=== PATIENT | male | born 1935 | race Caucasian/White ===

== ENCOUNTER 2018-08-05 09:35 | Observation (INO) | payer OTHER ==
[2018-08-05] MEDS ORDERED: ENALAPRILAT 1.25 MG/ML VIAL IV ONE (10:20)
[2018-08-05 10:23] LABS: Absolute Monocytes 0.8 K/uL (0.1-1.3); Basophils % 1.2 % (0-1.3); Eosinophils % 3.5 % (0-4.4); Lymphocytes % 12.7 % (15.3-44.8); MPV 9.1 fL (7.6-11.3); Monocytes % 9.9 % (3.3-12.3); RBC Red Blood Cell Count 4.38 M/uL (4.33-5.43)
[2018-08-05 10:25] LABS: Protime INR 1.08
--- NOTE | 2018-08-05 10:35 | RAD REPORT ---
EXAM DESCRIPTION: CT - Head Brain Wo Cont - 08/05/2018 10:28 am CLINICAL HISTORY: Mental status change;Pain Headache, drowsiness COMPARISON: No comparisons TECHNIQUE: All CT scans are performed using dose optimization technique as appropriate and may inclu de automated exposure control or mA/KV adjustment according to patient size. FINDINGS: No intracranial hemorrhage, hydrocephalus or extra-axial fluid collection.Moderate general ized brain atrophy is present with moderate periventricular and deep white matter chronic microvascul ar ischemic changes.No areas of brain edema or evidence of midline shift. Mild ethmoid air cell opacification. The calvarium is intact. IMPRESSION: No acute intracranial abnormality.
[2018-08-05 10:52] LABS: Albumin 3.9 g/dL (3.4-5.0); Bilirubin Direct 0.3 mg/dL (0-0.2); Bilirubin Total 0.9 mg/dL (0.2-1.0); Potassium 4.6 mmol/L (3.5-5.1); Protein, Total 7.9 g/dL (6.4-8.2); Troponin (Emerg Dept Use Only) 0.02 ng/mL (0.0-0.045)
--- NOTE | 2018-08-05 11:02 | RAD REPORT ---
EXAM DESCRIPTION: RAD - Chest Single View - 08/05/2018 10:52 am CLINICAL HISTORY: CHEST PAIN Chest pain. COMPARISON: CHEST SINGLE VIEW dated 10/23/2008 FINDINGS: Portable technique limits examination quality. The lungs are grossly clear. The heart is normal in size. No displaced fractures.Aortic atheroscleros is. IMPRESSION: No acute intrathoracic process suspected.
[2018-08-05] MEDS ORDERED: LABETALOL 20 MG/4ML SYRINGE IV ONE ×2 (11:07→12:22)
[2018-08-05] MEDS ORDERED: ASPIRIN 325 MG TAB ONE (12:21)
--- NOTE | 2018-08-05 12:35 | ER ---
Nurse's Notes [facility] Name: John Cox Age: 83 yrs Sex: Male : 1935 Arrival Date: 08/05/2018 Time: 09:37 Bed 7 Private MD: Diagnosis: Hypertensive Emergency Presentation: 08/05 09:48 Presenting complaint: Headache and dizziness upon waking today at 0630. Last known hb normal was last night at midnight. VAN NEGATIVE. Transition of care: patient was not received from another setting of care. Onset of symptoms was August 05, 2018. Risk Assessment: Do you want to hurt yourself or someone else? Patient reports no desire to harm self or others. Care prior to arrival: None. 09:48 Acuity: JES 2 hb 09:48 Method Of Arrival: Ambulatory hb 20:03 Initial Sepsis Screen: Does the patient meet any 2 criteria? No. Patient's initial ak1 sepsis screen is negative. Does the patient have a suspected source of infection? No. Patient's initial sepsis screen is negative. Triage Assessment: 20:02 General: Appears in no apparent distress. pt eating dinner. Pain: Pain currently is 0 ak1 out of 10 on a pain scale. 20:03 Pain: Pain began. ak1 22:05 Headache History: Denies prior headaches. General: Behavior is calm, cooperative. Pain: ak1 Denies pain. Also complains of no other associated symptoms. Historical: - Allergies: 09:50 No Known Allergies; hb - PMHx: 09:50 Hypertension; hb - Immunization history:: Adult Immunizations up to date. - Social history:: Smoking status: Patient/guardian denies using tobacco. - Ebola Screening: : No symptoms or risks identified at this time. Screenin:14 Abuse screen: Denies threats or abuse. Denies injuries from another. Nutritional sv screening: No deficits noted. Tuberculosis screening: No symptoms or risk factors identified. Fall Risk None identified. Assessment: 10:20 General: Appears in no apparent distress. well groomed, well developed, well nourished, sg Behavior is calm, cooperative, appropriate for age. Pain: Complains of pain in base of the skull and back of neck Quality of pain is described as aching, sharp. Neuro: Level of Consciousness is awake, alert, obeys commands, Oriented to person, place, time, situation, Director Of Audiology are Speech is normal, Facial symmetry appears normal. Cardiovascular: Capillary refill is brisk in bilateral fingers Patient's skin is warm and dry. Chest pain is denied. Respiratory: Airway is patent Respiratory effort is Respiratory pattern is regular, symmetrical. GI: No signs and/or symptoms were reported involving the gastrointestinal system. : No signs and/or symptoms were reported regarding the genitourinary system. EENT: No signs and/or symptoms were reported regarding the EENT system. Derm: Skin is pink, warm \\T\\ dry. Musculoskeletal: No signs and/or symptoms reported regarding the musculoskeletal system. 17:15 Reassessment: Patient appears in no apparent distress at this time. Patient and/or sg family updated on plan of care and expected duration. Pain level reassessed. Patient is alert, oriented x 3, equal unlabored respirations, skin warm/dry/pink. Diallo BENJAMIN notified of pt VS, order received to adjust the rate of IVPB Cardene infusion, see EMAR. 17:30 Reassessment: Patient appears in no apparent distress at this time. pt speech garbled sg and slurred at this time, reports " my mouth and face feel real numb, and metal taste in my mouth." Javier BENJAMIN notified, IV infusion of Cardene discontinued, VS assessed, orders received for STAT Head CT Brain, pt transported to CT with nurse. 17:45 Reassessment: pt transported back from CT at this time with nurse, Javier notified of sg pt condition, IVPB cardene remains discontinued at this time. 17:50 Reassessment: Patient appears in no apparent distress at this time. Patient and/or sg family updated on plan of care and expected duration. Pain level reassessed. Patient is alert, oriented x 3, equal unlabored respirations, skin warm/dry/pink. pt reports the numbness to the left side of the face is now gone, pt speech is more clear at this time Patient states feeling better. 18:20 Reassessment: Javier BENJAMIN notified of pt VS, orders received for PO medication of sg Hydralazine and Amlodipine, awaiting order to be entered at this time. 20:41 Reassessment: Patient appears in no apparent distress at this time. Patient and/or ak1 family updated on plan of care and expected duration. Pain level reassessed. Patient is alert, oriented x 3, equal unlabored respirations, skin warm/dry/pink. pt A\\T\\OX4 with steady gait. pt and family informed of wait for room assignment. pt BP medications held due to BP 167/80 heart rate 70. Patient states symptoms have improved. 22:12 Reassessment: Patient appears in no apparent distress at this time. No changes from ak1 previously documented assessment. Patient and/or family updated on plan of care and expected duration. Pain level reassessed. Patient is alert, oriented x 3, equal unlabored respirations, skin warm/dry/pink. Patient states feeling better. Patient states symptoms have improved. Vital Signs: 09:50 BP 246 / 124; Pulse 96; Resp 16; Temp 98.1; Pulse Ox 97% on R/A; Pain 7/10; hb 10:10 BP 250 / 115; Pulse 92; Resp 17; Pulse Ox 98% on R/A; sg 10:45 BP 257 / 127; Pulse 71; Resp 16; Pulse Ox 100% ; sv 12:00 BP 227 / 117; Pulse 77 MON; Resp 16; Pulse Ox 99% ; sv 13:00 BP 196 / 121; Pulse 67; Resp 16; Pulse Ox 98% on R/A; dh3 14:00 BP 209 / 105; Pulse 70; Resp 13; Pulse Ox 99% on R/A; dh3 15:15 BP 210 / 127; Pulse 72; Resp 15; Pulse Ox 98% on R/A; dh3 16:15 BP 164 / 94; Pulse 65 MON; Resp 17; Pulse Ox 98% on R/A; sg 17:15 BP 145 / 85; Pulse 59 MON; Resp 18; Pulse Ox 100% on R/A; sg 17:30 BP 116 / 77; Pulse 69 MON; Resp 18; Pulse Ox 98% ; sg 17:45 BP 180 / 77; Pulse 78; Resp 16; Pulse Ox 98% on R/A; sg 18:00 BP 190 / 97; Pulse 77; Resp 17; Pulse Ox 98% on R/A; sg 18:09 BP 184 / 70; Pulse 70; Resp 18; Pulse Ox 98% on R/A; sg 18:31 BP 172 / 104; Pulse 73; Resp 16; Pulse Ox 99% on R/A; sg 20:02 BP 171 / 98; Pulse 67; Resp 16; Temp 98.1; Pulse Ox 99% on R/A; ak1 20:42 BP 167 / 80; Pulse 68; Resp 16; Temp 98.1; Pulse Ox 99% on R/A; Pain 3/10; ak1 22:13 BP 135 / 86; Pulse 60; Resp 16; Temp 98.1; Pulse Ox 99% on R/A; ak1 12:00 A fib sv 17:15 Diallo BENJAMIN notified of pt VS, orders recieved to lower dose of IVPB Cardene to 4 mg/hr, sg see EMAR 18:00 pt transported back from CT sg 18:09 pt reports the numbness and speech are normal at this time, pt agrees sg NIH Stroke Scale Scores: 10:44 NIHSS Score: 0 jr8 ED Course: 09:37 Patient arrived in ED. tw3 09:48 Diallo Amaya PA is PHCP. jr8 09:48 Arthur Norton MD is Attending Physician. jr8 09:50 Triage completed. hb 09:50 Arm band placed on. hb 10:05 Initial lab(s) drawn, by ED staff, sent to lab. Inserted saline lock: 20 gauge in left sv forearm, using aseptic technique. ,using aseptic technique. done by Maykel SNOWDEN Blood collected. 10:14 Patient has correct armband on for positive identification. Bed in low position. Call sv light in reach. Adult w/ patient. Pulse ox on. NIBP on. Door closed. Head of bed elevated. 10:20 Maykel Cuadra, RN is Primary Nurse. sg 10:28 CT completed. Patient tolerated procedure well. Patient moved to CT via stretcher. jg6 Patient moved back from CT. 10:28 CT Head Brain wo Cont In Process Unspecified. EDMS 10:53 XRAY Chest (1 view) In Process Unspecified. EDMS 11:41 EKG done, by testing tech. reviewed by Diallo BENJAMIN. at1 12:34 Rory Bui MD is Referral Physician. jr8 13:02 Claudia Lynch MD is Hospitalizing Provider. jr8 14:54 MRI - Brain Wo Cont In Process Unspecified. EDMS 22:03 No provider procedures requiring assistance completed. Patient admitted, IV remains in ak1 place. Administered Medications: 10:18 Drug: Enalaprilat 1.25 mg Route: IV; Rate: calculated rate; Site: left forearm; sg 20:00 Follow up: IV Status: Completed infusion ak1 11:00 Drug: Labetalol 20 mg Route: IVP; Infused Over: 2 mins; Site: left forearm; sv 20:01 Follow up: Response: No adverse reaction ak1 12:18 Drug: Aspirin 325 mg Route: PO; sv 20:01 Follow up: Response: No adverse reaction ak1 12:18 Drug: Labetalol 20 mg Route: IVP; Infused Over: 2 mins; Site: left forearm; sv 20:01 Follow up: Response: No adverse reaction ak1 15:15 Drug: Cardene 5 mg/hr Route: IV; Rate: calculated rate; Site: left forearm; sg 17:20 Follow up: Rate change 4 mg/hr sg 19:58 Follow up: IV Status: Order to discontinue infusion; Order to discontinue infusion per ak1 Maykel Vazquez RN 20:43 Not Given (held due to vitals): hydrALAZINE 10 mg PO once ak1 20:43 Not Given (held due to vital signs): amLODIPine 10 mg PO once ak1 21:37 CANCELLED (Duplicate Order): amLODIPine 10 mg PO once ak1 21:37 CANCELLED (Duplicate Order): hydrALAZINE 10 mg PO once ak1 Outcome: 12:34 Discharge ordered by MD. gutierrez 13:03 Decision to Hospitalize by Provider. jr8 20:43 Condition: good ak1 20:43 Instructed on the need for admit. 22:24 Admitted to Tele accompanied by tech, family with patient, via wheelchair, room 430, ak1 with chart, Report called to Skye Fonseca 22:41 Patient left the ED. ak1 NIH Stroke Scale - NIH Stroke Score Date: 08/05/2018 Time: 10:44 Total Score = 0 1a. Level of Consciousness (LOC) - 0(Alert) 1b. Level of Consciousness (LOC) (Year \\T\\ Age) - 0(Both) 1c. LOC Commands (Open \\T\\ Closes Eyes/Special Projects Coordinator) - 0(Both) 2. Best Gaze (Lateral Gaze Paresis) - 0(Normal) 3. Visual Field Loss - 0(No visual loss) 4. Facial Palsy - 0(Normal) 5a. Left Arm: Motor (10-second hold) - 0(No drift) 5b. Right Arm: Motor (10-second hold) - 0(No drift) 6a. Left Leg: Motor (5-second hold - always test supine) - 0(No drift) 6b. Right Leg: Motor (5-second hold - always test supine) - 0(No drift) 7. Limb Ataxia (finger/nose \\T\\ heel/blackburn - test with eyes open) - 0(Absent) 8. Sensory Loss (pinprick arms/legs/face) - 0(Normal) 9. Best Language: Aphasia (description/naming/reading) - 0(No aphasia) 10. Dysarthria (speech clarity - read or repeat words) - 0(Normal) 11. Extinction and Inattention (visual/tactile/auditory/spatial/personal) - 0(No abnormality) Initials: matt Signatures: Dispatcher [employer] Dana Segundo RN ISI Cuadra, Maykel, RN Diallo Aldrich PA PA jr8 Deedee Martin, international trade teacher EKG Tat1 Elzbieta Crum RN RN ak1 Domenica Fishman RN RN rita Sparks, Becky tw3 Vargas, Keli dh3 Tisha Milton jg6 Corrections: (The following items were deleted from the chart) 10:28 10:05 Inserted saline lock: 20 gauge in left antecubital area, using aseptic sg technique. ,using aseptic technique. done by Maykel SNOWDEN Blood collected. sv 18:08 17:50 BP 116 / 74; Pulse 62bpm; Resp 16bpm; Pulse Ox 99% RA; sg sg 19:43 18:35 Reassessment: Javier BENJAMIN notified of pt VS, orders received for PO sg medication of Hydralazine and Amlodipine, awaiting order to be entered at this time sg
--- NOTE | 2018-08-05 12:35 | EDPHYS ---
Physician Documentation [facility] Name: John Cox Age: 83 yrs Sex: Male : 1935 Arrival Date: 08/05/2018 Time: 09:37 Bed 7 Private MD: ED Physician Arthur Norton HPI: 08/05 10:35 This 83 yrs old Male presents to ER via Ambulatory with complaints of jr8 Headache. 10:35 The patient complains of pain to the left base of the skull and right base of the jr8 skull. The patient describes the headache as throbbing. Onset: The symptoms/episode began/occurred acutely, today. Associated signs and symptoms: Pertinent positives: speech changes. Severity of symptoms: At its worst the pain was moderate, in the emergency department the pain is unchanged. Headache History: Denies prior headaches. The patient has not experienced similar symptoms in the past. The patient has not recently seen a physician. Family stated that patient went to bed normal. Upon waking at 07:30 had headache and noticed that some of his speech was slurred. BP markedly elevated. Has been trying to self adjust medicine. Use to be on several medicines for BP . Historical: - Allergies: 09:50 No Known Allergies; hb - PMHx: 09:50 Hypertension; hb - Immunization history:: Adult Immunizations up to date. - Social history:: Smoking status: Patient/guardian denies using tobacco. - Ebola Screening: : No symptoms or risks identified at this time. ROS: 10:44 Eyes: Negative for injury, pain, redness, and discharge, ENT: Negative for injury, jr8 pain, and discharge, Neck: Negative for injury, pain, and swelling, Cardiovascular: Negative for chest pain, palpitations, and edema, Respiratory: Negative for shortness of breath, cough, wheezing, and pleuritic chest pain, Abdomen/GI: Negative for abdominal pain, nausea, vomiting, diarrhea, and constipation, Back: Negative for injury and pain, MS/Extremity: Negative for injury and deformity, Skin: Negative for injury, rash, and discoloration. 10:44 Neuro: Positive for headache, speech changes, Negative for altered mental status, dizziness, seizure activity, syncope, visual changes, weakness. Exam: 10:44 Eyes: Pupils equal round and reactive to light, extra-ocular motions intact. Lids and jr8 lashes normal. Conjunctiva and sclera are non-icteric and not injected. Cornea within normal limits. Periorbital areas with no swelling, redness, or edema. ENT: Nares patent. No nasal discharge, no septal abnormalities noted. Tympanic membranes are normal and external auditory canals are clear. Oropharynx with no redness, swelling, or masses, exudates, or evidence of obstruction, uvula midline. Mucous membranes moist. Neck: Trachea midline, no thyromegaly or masses palpated, and no cervical lymphadenopathy. Supple, full range of motion without nuchal rigidity, or vertebral point tenderness. No Meningismus. Cardiovascular: Regular rate and rhythm with a normal S1 and S2. No gallops, murmurs, or rubs. Normal PMI, no JVD. No pulse deficits. Respiratory: Lungs have equal breath sounds bilaterally, clear to auscultation and percussion. No rales, rhonchi or wheezes noted. No increased work of breathing, no retractions or nasal flaring. Abdomen/GI: Soft, non-tender, with normal bowel sounds. No distension or tympany. No guarding or rebound. No evidence of tenderness throughout. Back: No spinal tenderness. No costovertebral tenderness. Full range of motion. Skin: Warm, dry with normal turgor. Normal color with no rashes, no lesions, and no evidence of cellulitis. MS/ Extremity: Pulses equal, no cyanosis. Neurovascular intact. Full, normal range of motion. Neuro: Awake and alert, GCS 15, oriented to person, place, time, and situation. Cranial nerves II-XII grossly intact. Motor strength 5/5 in all extremities. Sensory grossly intact. Cerebellar exam normal. Normal gait. Vital Signs: 09:50 BP 246 / 124; Pulse 96; Resp 16; Temp 98.1; Pulse Ox 97% on R/A; Pain 7/10; hb 10:10 BP 250 / 115; Pulse 92; Resp 17; Pulse Ox 98% on R/A; sg 10:45 BP 257 / 127; Pulse 71; Resp 16; Pulse Ox 100% ; sv 12:00 BP 227 / 117; Pulse 77 MON; Resp 16; Pulse Ox 99% ; sv 13:00 BP 196 / 121; Pulse 67; Resp 16; Pulse Ox 98% on R/A; dh3 14:00 BP 209 / 105; Pulse 70; Resp 13; Pulse Ox 99% on R/A; dh3 15:15 BP 210 / 127; Pulse 72; Resp 15; Pulse Ox 98% on R/A; dh3 16:15 BP 164 / 94; Pulse 65 MON; Resp 17; Pulse Ox 98% on R/A; sg 17:15 BP 145 / 85; Pulse 59 MON; Resp 18; Pulse Ox 100% on R/A; sg 17:30 BP 116 / 77; Pulse 69 MON; Resp 18; Pulse Ox 98% ; sg 17:45 BP 180 / 77; Pulse 78; Resp 16; Pulse Ox 98% on R/A; sg 18:00 BP 190 / 97; Pulse 77; Resp 17; Pulse Ox 98% on R/A; sg 18:09 BP 184 / 70; Pulse 70; Resp 18; Pulse Ox 98% on R/A; sg 18:31 BP 172 / 104; Pulse 73; Resp 16; Pulse Ox 99% on R/A; sg 20:02 BP 171 / 98; Pulse 67; Resp 16; Temp 98.1; Pulse Ox 99% on R/A; ak1 20:42 BP 167 / 80; Pulse 68; Resp 16; Temp 98.1; Pulse Ox 99% on R/A; Pain 3/10; ak1 22:13 BP 135 / 86; Pulse 60; Resp 16; Temp 98.1; Pulse Ox 99% on R/A; ak1 12:00 A fib sv 17:15 Diallo BENJAMIN notified of pt VS, orders recieved to lower dose of IVPB Cardene to 4 mg/hr, sg see EMAR 18:00 pt transported back from CT sg 18:09 pt reports the numbness and speech are normal at this time, pt agrees sg NIH Stroke Scale Scores: 10:44 NIHSS Score: 0 jr8 MDM: 09:48 Patient medically screened. jr8 12:33 Data reviewed: vital signs, nurses notes, lab test result(s), EKG, radiologic studies, jr8 CT scan, and as a result, I will discharge patient. Data interpreted: Pulse oximetry: on room air is 100 %. Interpretation: normal. Counseling: I had a detailed discussion with the patient and/or guardian regarding: the historical points, exam findings, and any diagnostic results supporting the discharge/admit diagnosis, lab results, radiology results, the need for outpatient follow up, a human capital analyst, a family practitioner, to return to the emergency department if symptoms worsen or persist or if there are any questions or concerns that arise at home. Response to treatment: the patient's symptoms have markedly improved after treatment. ED course: Patient was advised that because of his symptoms coupled with his BP, he should be admitted for Hypertensive Emergency. Patient does not want to be admitted. We were able to lower blood pressure to a more reasonable level. Still does not want to stay. Will up his current medication and add another one. Needs close f/u in the next day. To come back if worse . 08/05 10:01 Order name: Basic Metabolic Panel [facility] 08/05 10:01 Order name: CBC with Diff; Complete Time: 10:32 [facility] 08/05 10:01 Order name: LFT's; Complete Time: 10:53 [facility] 08/05 10:01 Order name: Magnesium; Complete Time: 10:53 [facility] 08/05 10:01 Order name: NT PRO-BNP; Complete Time: 10:53 [facility] 08/05 10:01 Order name: PT-INR; Complete Time: 10:45 [facility] 08/05 10:01 Order name: Troponin (emerg Dept Use Only); Complete Time: 10:53 [facility] 08/05 10:01 Order name: XRAY Chest (1 view); Complete Time: 11:13 [facility] 08/05 10:02 Order name: CT Head Brain wo Cont; Complete Time: 10:45 [facility] 08/05 10:02 Order name: Basic Metabolic Panel; Complete Time: 10:53 [facility] 08/05 14:23 Order name: MRI - Brain Wo Cont; Complete Time: 15:56 [facility] 08/05 16:11 Order name: Urine Dipstick--Ancillary (enter results); Complete Time: 16:59 bd 08/05 16:23 Order name: Carotid Artery Bilateral; Complete Time: 17:45 [facility] 08/05 16:23 Order name: Echo with Doppler [facility] 08/05 10:01 Order name: EKG; Complete Time: 10:02 [facility] 08/05 10:01 Order name: Cardiac monitoring; Complete Time: 10:33 [facility] 08/05 10:01 Order name: EKG - Nurse/Tech; Complete Time: 12:12 [facility] 08/05 16:09 Order name: Diet Heart Healthy; Complete Time: 16:09 sv 08/05 16:23 Order name: CONS Physician Consult [facility] 08/05 17:45 Order name: CT Head Brain wo Cont [facility] 08/05 18:04 Order name: CT; Complete Time: 18:29 [facility] 08/05 10:01 Order name: IV Saline Lock; Complete Time: 10:12 8 08/05 10:01 Order name: Labs collected and sent; Complete Time: 10: [facility] 08/05 10:01 Order name: O2 Per Protocol; Complete Time: 10: 8 08/05 10:01 Order name: O2 Sat Monitoring; Complete Time: : [facility] Administered Medications: 10:18 Drug: Enalaprilat 1.25 mg Route: IV; Rate: calculated rate; Site: left forearm; sg 20:00 Follow up: IV Status: Completed infusion ak1 11:00 Drug: Labetalol 20 mg Route: IVP; Infused Over: 2 mins; Site: left forearm; sv 20:01 Follow up: Response: No adverse reaction ak1 12:18 Drug: Aspirin 325 mg Route: PO; sv 20:01 Follow up: Response: No adverse reaction ak1 12:18 Drug: Labetalol 20 mg Route: IVP; Infused Over: 2 mins; Site: left forearm; sv 20:01 Follow up: Response: No adverse reaction ak1 15:15 Drug: Cardene 5 mg/hr Route: IV; Rate: calculated rate; Site: left forearm; sg 17:20 Follow up: Rate change 4 mg/hr sg 19:58 Follow up: IV Status: Order to discontinue infusion; Order to discontinue infusion per ak1 Maykel Vazquez RN 20:43 Not Given (held due to vitals): hydrALAZINE 10 mg PO once ak1 20:43 Not Given (held due to vital signs): amLODIPine 10 mg PO once ak1 21:37 CANCELLED (Duplicate Order): amLODIPine 10 mg PO once ak1 21:37 CANCELLED (Duplicate Order): hydrALAZINE 10 mg PO once ak1 Disposition: 08/06 09:19 Co-signature as Attending Physician, Arthur Norton MD I agree with the assessment and maria del carmen plan of care. Disposition: 08/05/18 13:03 Hospitalization ordered by Lynch, Claudia for Observation. Preliminary diagnosis is Hypertensive Emergency . - Bed requested for Telemetry/MedSurg (Inpatient). - Status is Observation. ak1 - Condition is Stable. - Problem is new. - Symptoms have improved. UTI on Admission? No NIH Stroke Scale - NIH Stroke Score Date: 08/05/2018 Time: 10:44 Total Score = 0 1a. Level of Consciousness (LOC) - 0(Alert) 1b. Level of Consciousness (LOC) (Year \T\ Age) - 0(Both) 1c. LOC Commands (Open \T\ Closes Eyes/Organic Section Technical Lead) - 0(Both) 2. Best Gaze (Lateral Gaze Paresis) - 0(Normal) 3. Visual Field Loss - 0(No visual loss) 4. Facial Palsy - 0(Normal) 5a. Left Arm: Motor (10-second hold) - 0(No drift) 5b. Right Arm: Motor (10-second hold) - 0(No drift) 6a. Left Leg: Motor (5-second hold - always test supine) - 0(No drift) 6b. Right Leg: Motor (5-second hold - always test supine) - 0(No drift) 7. Limb Ataxia (finger/nose \T\ heel/blackburn - test with eyes open) - 0(Absent) 8. Sensory Loss (pinprick arms/legs/face) - 0(Normal) 9. Best Language: Aphasia (description/naming/reading) - 0(No aphasia) 10. Dysarthria (speech clarity - read or repeat words) - 0(Normal) 11. Extinction and Inattention (visual/tactile/auditory/spatial/personal) - 0(No abnormality) Initials: jr8 Signatures: Dispatcher [employer] Dana Segundo RN Stacey Lynn RN Elicia Schaffer RN Maykel Randhawa RN Arthur Rangel MD MD cha Roszak, Josh, PA PA jr8 Elzbieta Crum RN RN ak1 Domenica Fishman RN RN Corrections: (The following items were deleted from the chart) 08/05 13:01 12:34 08/05/2018 12:34 Discharged to Home. Impression: Hypertensive Emergency . jr8 Condition is Stable. Forms are Medication Reconciliation Form, Thank You Letter, Antibiotic Education, Prescription Opioid Use. Follow up: Rory Bui; When: 1 - 2 days; Reason: Recheck today's complaints, Continuance of care, Re-evaluation by your physician. Problem is new. Symptoms have improved. jr8 19:50 13:03 Hospitalization Ordered by Claudia Lynch MD for Observation. Preliminary dw diagnosis is Hypertensive Emergency . Bed requested for Telemetry/MedSurg (observation). Status is Observation. Condition is Stable. Problem is new. Symptoms have improved. UTI on Admission? No. jr8 21:37 21:34 amLODIPine 10 mg PO once ordered. ak1 ak1 21:37 21:34 hydrALAZINE 10 mg PO once ordered. ak1 ak1 21:38 19:50 08/05/2018 13:03 Hospitalization Ordered by Claudia Lynch MD for mw Observation. Preliminary diagnosis is Hypertensive Emergency . Bed requested for [facility] ER HOLD. Status is Observation. Condition is Stable. Problem is new. Symptoms have improved. UTI on Admission? No. dw 22:41 21:38 08/05/2018 13:03 Hospitalization Ordered by Claudia Lynch MD for ak1 Observation. Preliminary diagnosis is Hypertensive Emergency . Bed requested for Telemetry/MedSurg (Inpatient). Status is Observation. Condition is Stable. Problem is new. Symptoms have improved. UTI on Admission? No. mw
[2018-08-05] MEDS ORDERED: NICARDIPINE HCL 25 MG in NA CHLORIDE 0.9% 240 ML IV PRN (14:41)
--- NOTE | 2018-08-05 15:30 | RAD REPORT ---
EXAM DESCRIPTION: MRI - Brain Wo Cont - 08/05/2018 3:05 pm CLINICAL HISTORY: Headache;Aphasia Headache, drowsiness, CVA symptomology COMPARISON: Head Brain Wo Cont dated 08/05/2018 TECHNIQUE: Multi-sequence, multiplanar MR imaging of the brain was performed without contrast. FINDINGS: No intracranial hemorrhage, hydrocephalus or extra-axial fluid collections. Moderate globa l brain atrophy seen. Moderate confluent T2/FLAIR hyperintensity in the periventricular and deep whit e matter is present compatible with chronic microvascular ischemic changes. No edema or shift of midl ine structures. No findings to suspect brain mass. DWI is negative for acute CVA. Midline structures are normally formed. Mild fluid is present in the ethmoid air cells. IMPRESSION: Negative for acute CVA or other acute intracranial abnormality.
[2018-08-05 16:57] LABS: Urine Blood TRACE (NEG); Urine Glucose NEGATIVE (NEG); Urine Protein 3+ (NEG)
--- NOTE | 2018-08-05 17:22 | RAD REPORT ---
EXAM DESCRIPTION: US - CP - 08/05/2018 4:58 pm CLINICAL HISTORY: Aphasia TIA/CVA symptomology COMPARISON: No comparisons TECHNIQUE: Real-time sonographic evaluation of both carotid systems was performed. Doppler interroga tion was performed with waveform tracing bilaterally. FINDINGS: Normal high resistance waveforms are noted in both external carotid arteries. The common c arotid arteries and internal carotid arteries show normal low resistance waveforms. Moderate hard plaque is seen involving the right proximal internal carotid artery. Stenosis is presen t with elevated peak systolic velocity 150 cm/second. Stenosis is estimated at 70% based on NASCET cr iteria. Significant atheromatous and non atheromatous plaquing resulting in stenosis is present invol ving the proximal left internal carotid artery estimated at 80-90% based on NASCET criteria. Antegrade flow seen in both vertebral arteries. IMPRESSION: Significant bilateral atheromatous and non atheromatous plaquing is present in both prox imal internal carotid arteries. The findings result in bilateral carotid stenosis as detailed based on NASCET criteria, more severe o n the left. If clinically indicated, contrast-enhanced MRA of the neck vessels could provide more detailed inform ation.
--- NOTE | 2018-08-05 18:04 | RAD REPORT ---
EXAM DESCRIPTION: CT - Head Brain Wo Cont - 08/05/2018 5:54 pm CLINICAL HISTORY: acute mentals status change with aphasia Drowsiness, headache, CVA COMPARISON: Head Brain Wo Cont dated 08/05/2018 TECHNIQUE: All CT scans are performed using dose optimization technique as appropriate and may inclu de automated exposure control or mA/KV adjustment according to patient size. FINDINGS: No intracranial hemorrhage, hydrocephalus or extra-axial fluid collection.Moderate general ized brain atrophy is present with moderate periventricular and deep white matter chronic microvascul ar ischemic changes.No areas of brain edema or evidence of midline shift. The paranasal sinuses and mastoids are clear. The calvarium is intact. IMPRESSION: No acute intracranial abnormality.
[2018-08-05] MEDS ORDERED: HYDRALAZINE HCL 10 MG TABLET ONE (20:45)
[2018-08-05] MEDS ORDERED: AMLODIPINE 5 MG TAB ONE (20:45)
[2018-08-05] MEDS ORDERED: ONDANSETRON 4 MG/2 ML VIAL IV PRN (22:25)
[2018-08-06] MEDS: METOPROLOL TARTRATE 5 MG/5 ML INJ IV PRN ×2 (00:08→08:25)
[2018-08-06] MEDS: HYDRALAZINE HCL 20 MG/ML VIAL IV PRN ×2 (01:38→05:14)
--- NOTE | 2018-08-06 05:35 | EKG ---
Test Date: 2018-08-05 Test Time: 10:52:05 Dip Dyer: YARIEL MEASUREMENT RESULTS: Intervals: Rate: 89 [place]: QRSD: 134 QT: 406 QTc: 493 [place]: P: WA: QRS: 93 T: 73 INTERPRETIVE STATEMENTS: Atrial fibrillation Right bundle branch block Abnormal ECG Compared to ECG 10/23/2008 06:44:51 Sinus rhythm no longer present Electronically Signed On 08-06-18 05:35:06 CDT by Ted Montoya
[2018-08-06 06:26] LABS: Albumin 3.3 g/dL (3.4-5.0); Phosphorus 3.1 mg/dL (2.5-4.9); Potassium 4.5 mmol/L (3.5-5.1); Protein, Total 6.9 g/dL (6.4-8.2)
[2018-08-06 06:34] LABS: Thyroid Stimulating Hormone 5.09 uIU/mL (0.360-3.740)
[2018-08-06 07:27] LABS: Absolute Lymphocytes (CBC) 0.9 K/uL (0.7-4.9); Absolute Monocytes 0.8 K/uL (0.1-1.3); Absolute Neutrophil 6.4 K/uL (1.8-8.0); Basophils % 0.9 % (0-1.3); Eosinophils % 2.2 % (0-4.4); Hematocrit 39.1 % (39.6-49.0); Lymphocytes % 10.4 % (15.3-44.8); MPV 9.7 fL (7.6-11.3); Monocytes % 9.7 % (3.3-12.3); RBC Red Blood Cell Count 4.17 M/uL (4.33-5.43)
[2018-08-06] MEDS: ENOXAPARIN 40 MG/0.4 ML SQ SCH (08:26)
--- NOTE | 2018-08-06 08:42 | RAD REPORT ---
EXAM DESCRIPTION: - Abdomen Pelvis Scan US - 08/06/2018 8:13 am CLINICAL HISTORY: Hypertension COMPARISON: CT study November 2016 TECHNIQUE: Sonographic evaluation of the kidneys was performed with measurements obtained and gross anatomic assessment performed. Doppler evaluation of the renal arteries, interlobar arteries and aort a performed. Waveforms and velocities were recorded. The renal artery ratios in resistive index beatriz ues were calculated. FINDINGS: Right kidney measures 12.0 x 6.3 x 7.1 cm. Left kidney is atrophic measuring 5.8 x 3.6 x 3 .7 cm. No hydronephrosis or solid mass lesion of either kidney identifiable. There is increased corti christian echogenicity which would support underlying medical renal disease. Overall left renal assessment is limited due to small size and positioning. Aortic resistive index is 0.78. No suspicious waveform pattern. Velocity values are generally dampene d in the left kidney relative to the right, not unexpected given the chronic atrophy. Left renal randall ry resistive index values measure 0.67 proximally and 1.00 in the mid and distal left renal artery. R ight renal artery resistive index values were 0.69-0.70 across the length of the renal artery. Segmen junior resistive index values were 1.00 on the right and 1.00 on the left. Renal artery ratios measured 1.1 on the right and 0.7 on the left, both within normal range. IMPRESSION: No abnormal renal artery ratio of either kidney. No hydronephrosis, mass or suspicious renal parenchymal finding. Underlying medical renal disease is evident.
[2018-08-06] MEDS ORDERED: PNEUMOCOCCAL VACCINE 0.5 ML IMVAC ONE (10:00)
[2018-08-06] MEDS: METOPROLOL TAR 50 MG TAB PO SCH ×2 (10:01→21:12)
[2018-08-06] MEDS: AMLODIPINE 10 MG TAB PO SCH (10:02)
--- NOTE | 2018-08-06 10:02 | P.HP ---
Certification for Inpatient Patient admitted to: Inpatient With expected LOS: >2 Midnights Patient will require the following post-hospital care: None Practitioner: I am a practitioner with admitting privileges, knowledge of patient current condition, hospital course, and medical plan of care. Services: Services provided to patient in accordance with Admission requirements found in Title 42 Section 412.3 of the Code of Federal Regulations Patient History Date of Service: 08/05/18 Reason for admission: Hypertensive emergency History of Present Illness: Patient is an 83-year-old gentleman who came into the hospital with uncontrolled blood pressure. His blood pressure was 200/120s. He was seen in the emergency room and he was started on a nicardipine drip. His blood pressure actually became really low any started having slurred speech. The nicardipine drip was stopped and imaging studies did not reveal an acute stroke. Patient is admitted to the hospital for further evaluation. Will gradually bring his blood pressure down over the next 24-48 hr. Allergies No Known Allergies Allergy (Verified 09/10/16 09:35) - Past Medical/Surgical History Has patient received pneumonia vaccine in the past: No Diabetic: No -: HTN -: cataract surgery - Family History Father Medical History: Hypertension Brother Medical History: Cancer - Social History Smoking Status: Former smoker Alcohol use: Yes CD- Drugs: No Caffeine use: Yes Place of Residence: Home Review of Systems 10-point ROS is otherwise unremarkable Physical Examination - Vital Signs Temperature: 98.3 F Blood Pressure: 213/103 Pulse: 83 Respirations: 16 Pulse Ox (%): 98 - Physical Exam General: Alert, In no apparent distress, Oriented x3 HEENT: Atraumatic, PERRLA, Mucous membr. moist/pink, EOMI, Sclerae nonicteric Neck: Supple, 2+ carotid pulse no bruit, No LAD, Without JVD or thyroid abnormality Respiratory: Clear to auscultation bilaterally, Normal air movement Cardiovascular: Regular rate/rhythm, Normal S1 S2, No murmurs Gastrointestinal: Normal bowel sounds, Soft and benign, Non-distended, No tenderness Musculoskeletal: No clubbing, No swelling, No tenderness Integumentary: No rashes Neurological: Normal gait, Normal speech, Normal strength at 5/5 x4 extr, Normal tone, Sensation intact, Cranial nerves 3-12 intact, Normal affect Lymphatics: No axilla or inguinal lymphadenopathy - Studies Laboratory Data (last 24 hrs) 08/05/18 10:05: PT 12.7 H, INR 1.08 08/05/18 10:05: WBC 8.2, Hgb 14.0, Hct 41.0, Plt Count 219 08/05/18 10:05: Sodium 132 L, Potassium 4.6, BUN 18, Creatinine 1.71 H, Glucose 107 H, Magnesium 2.0, Total Bilirubin 0.9, AST 19, ALT 26, Alkaline Phosphatase 93 Assessment & Plan - Problems (Diagnosis) (1) Hypertensive emergency Current Visit: Yes Status: Acute (2) Generalized weakness Current Visit: Yes Status: Acute (3) Acute kidney injury Current Visit: Yes Status: Acute - Plan Plan: 1. Strict blood pressure control 2. Echocardiogram 3. workup for secondary causes of hypertension 4. Renal arterial Doppler 5. Cardiology and Nephrology consultation 6. Monitor labs and renal function 7. GI and DVT prophylaxis - Advance Directives Does patient have a Living Will: Yes Does patient have a Durable POA for Healthcare: Yes - Code Status/Comfort Care Code Status Assessed: Yes Code Status: Full Code Critical Care: No Time Spent Managing PTS Care (In Minutes): 45
[2018-08-06] MEDS: LOSARTAN POTASSIUM 50 MG TABLET PO SCH (12:46)
--- NOTE | 2018-08-06 14:11 | P.PN ---
Subjective Date of Service: 08/06/18 Chief Complaint: Hypertensive emergency Subjective: No C/O voiced, Tolerating diet, Ambulating, Improving Patient slept well last night. BP had elevated again early this morning. Additional medications were added to his regimen including PRN medicines. Stated that he overall is feeling much better <Buck Amaya - Last Filed: 08/06/18 14:07> Date of Service: 08/06/18 <Josef Kumar - Last Filed: 08/06/18 15:11> Review of Systems General: Unremarkable Eyes: Unremarkable ENT: Unremarkable Respiratory: Unremarkable Cardiovascular: Unremarkable Gastrointestinal: Unremarkable Genitourinary: Unremarkable Musculoskeletal: Unremarkable Integumentary: Unremarkable Neurological: Unremarkable <Buck Amaya - Last Filed: 08/06/18 14:07> Physical Examination - Vital Signs Temperature: 98.4 F Blood Pressure: 172/80 Pulse: 77 Respirations: 16 Pulse Ox (%): 96 - Physical Exam General: Alert, In no apparent distress, Oriented x3, Cooperative HEENT: Normocephalic, PERRLA, Mucous membr. moist/pink Neck: Supple, 2+ carotid pulse no bruit, No Thyromegaly, No LAD Respiratory: Clear to auscultation bilaterally, Normal air movement Cardiovascular: No edema, Normal pulses, Regular rate/rhythm, Normal S1 S2, Abnormal S3, No gallops, No rubs, No murmurs Gastrointestinal: Normal bowel sounds, Soft and benign, Non-distended, No ascites, No tenderness, No masses, No rebound, No guarding Musculoskeletal: No clubbing, No swelling, No contractures, No erythema, No tenderness, No warmth Integumentary: No rashes, No breakdown, No significant lesion, No tenderness/ swelling, No erythema, No warmth, No cyanosis Neurological: Normal gait, Normal speech, Normal strength at 5/5 x4 extr, Normal tone, Sensation intact, Cranial nerves 3-12 intact, Normal reflexes 2+, Normal affect <Buck Amaya - Last Filed: 08/06/18 14:07> Assessment & Plan - Problems (Diagnosis) (1) Acute kidney injury Current Visit: Yes Status: Acute (2) Generalized weakness Current Visit: Yes Status: Acute (3) Hypertensive emergency Current Visit: Yes Status: Acute Discharge Plan: Home Plan to discharge in: 24 Hours Physician Review Additional Text: Detailed discussion with family that we still need cardiology to assess him because of the HTN and carotid stenosis. Renal needs to further assess him as well because of the insufficiency noted on labs. Explained to them that if all is well and BP continues to stabilize. Probably could go home in a day or so. <Buck Amaya - Last Filed: 08/06/18 14:07> Physician Review: Patient Assessed, Agree with Above Assessment and Plan Physician Review Additional Text: Patient seen and evaluate with SOURAV Roberts. BP meds added for better BP control. Patient with significant HTN/Carotid arterial disease. Cardiology consulted to address. Await recommendations. Nephrology also consulted to address CRD. Anticipate DC home once BP better controlled, likely in the next [address] Boswell to take over care tomorrow. Time Spent Managing Pts Care (In Minutes): 55 <Josef Kumar - Last Filed: 08/06/18 15:11>
[2018-08-07] MEDS: HYDRALAZINE HCL 20 MG/ML VIAL IV PRN (04:40)
[2018-08-07] MEDS: METOPROLOL TARTRATE 5 MG/5 ML INJ IV PRN (06:18)
[2018-08-07 06:46] LABS: Absolute Lymphocytes (CBC) 1.1 K/uL (0.7-4.9); Absolute Monocytes 0.9 K/uL (0.1-1.3); Absolute Neutrophil 6.3 K/uL (1.8-8.0); Basophils % 0.8 % (0-1.3); Eosinophils % 2.5 % (0-4.4); Hematocrit 40.4 % (39.6-49.0); Lymphocytes % 12.4 % (15.3-44.8); MPV 9.2 fL (7.6-11.3); Monocytes % 10.8 % (3.3-12.3); RBC Red Blood Cell Count 4.31 M/uL (4.33-5.43)
[2018-08-07 06:52] LABS: Albumin 3.5 g/dL (3.4-5.0); Bilirubin Total 1.1 mg/dL (0.2-1.0); Magnesium 2.1 mg/dL (1.8-2.4); Potassium 4.4 mmol/L (3.5-5.1); Protein, Total 7.5 g/dL (6.4-8.2)
--- NOTE | 2018-08-07 07:45 | CON ---
Date of Consultation: 08/06/2018 Reason For Consultation: Cerebrovascular disease and hypertensive crisis. History Of Present Illness: Mr. Cox is 83 years old. He is a patient of Dr. Montoya, my partner. He came in with hypertensive crisis that is his only significant past medical history. He normally takes Norvasc, aspirin, Lasix, and potassium. He denied any chest pain. No nausea, vomiting, or sylvester phoresis. He denied any PND, orthopnea, or pedal edema. He denied any palpitations or syncope. Past Medical History: As stated above. Allergies: NONE. Review of Systems: Negative. Social History: Negative. Family History: Positive for hypertension. Physical Examination: General: He was in no acute distress. His blood pressure has improved. Vital Signs: Stable. He was afebrile. HEENT: Negative. Neck: Supple without any bruit, lymphadenopathy, JVD, or thyromegaly. Chest: Clear to auscultation and percussion. Cardiac: Revealed a regular rhythm and rate without any murmurs or rubs. He had positive S4 gallops . Abdomen: Benign. Extremities: Revealed no clubbing, cyanosis, or edema. Diagnostic Data: His creatinine was 1.71. BNP was 3656. He had a CT of his head, which was negativ e. A carotid Doppler showed 70% right internal carotid artery stenosis and 90% left internal carotid artery stenosis. Impression And Plan: Hypertension. He is on Norvasc. We certainly have plenty of options including Hyzaar, beta-noé, or even BINTA inhibitors. An echocardiogram is pending. I would probably prefe r beta-blockers addition to him considering his creatinine elevation. We need to see if we can hydra te him and improve his creatinine number. Mr. Cox has not had a cardiac workup for quite sometime s. He has an echocardiogram that is pending. I think once his blood pressure is controlled, we can send him home. He will need an outpatient Lexiscan, and I will set him up for an outpatient carotid angiogram. He does understand the risk and the benefits of the procedure, and he agreed to proceed w ith it. He does not have to stay in the hospital for that. RAINE/SALMA Voice ID: [id number] Report ID: [id number]
[2018-08-07] MEDS: AMLODIPINE 10 MG TAB PO SCH (08:19)
[2018-08-07] MEDS: METOPROLOL TAR 50 MG TAB PO SCH (08:19)
[2018-08-07] MEDS: ENOXAPARIN 40 MG/0.4 ML SQ SCH (08:20)
[2018-08-07] MEDS: LOSARTAN POTASSIUM 50 MG TABLET PO SCH (08:20)
[2018-08-07] MEDS ORDERED: cloNIDine HCl 0.1 MG TAB PO ONE (08:43)
[2018-08-07] MEDS ORDERED: LOSARTAN/HCTZ 50-12.5 PO SCH (09:00)
[2018-08-07] MEDS ORDERED: LOSARTAN POTASSIUM 50 MG TABLET PO SCH (09:00)
--- NOTE | 2018-08-07 16:05 | PN ---
Date of Progress Note: 08/06/2018 Chief Complaint: Chronic kidney disease, acute kidney injury, prerenal azotemia. The patient has no noliguric urine output. The patient was found to have severe hypertension. Renal ultrasound was don e and the patient was found to have atrophic kidney. DICTATION ENDS HERE. SUNSHINE/SALMA Voice ID: [id number] Report ID: [id number]
--- NOTE | 2018-08-07 16:18 | PN ---
Date of Progress Note: 08/07/2018 Chief Complaint: Acute on chronic kidney injury, nonoliguric, associated with cardiorenal syndrome, malignant hypertension, renal hypoperfusion. Renal function has declined somewhat over last 24 hours , BUN is 26, creatinine 1.82. The patient denies previous history of chronic kidney disease, althoug h renal ultrasound revealed solitary kidney, one kidney is atrophic and the other kidney disease is h ypertrophic. Hyponatremia, hypo-osmolar. Sodium level has declined over the last 48 hours. The patient has lab w ork done today and showed sodium 130, potassium 4.4, chloride 100, CO2 22, BUN 26, creatinine 1.86, p hosphorus level 3.0. The patient has some congestive heart failure with diastolic dysfunction. Workup is initiated to [facility] cardiac echo. BNP was 3656 on admission. The patient underwent neurology workup on admission bec ause of slurred speech and severe hypertension. Blood pressure is gradually improving. The patient completed nicardipine drip. Review of Systems: Denies nausea, vomiting. Denies chest pain, diaphoresis. Physical Examination: Eyes: Anicteric sclerae. EOMI. Ears, Nose, Mouth, and Throat: Oral mucosa moist. No pallor. Neck: Supple. No JVD. No bruits. Lungs: Clear to auscultation bilaterally. Heart: S1, S2. Abdomen: Soft, benign. Extremities: Slight edema. Imaging Data: Carotid Doppler showed 70% right internal carotid artery stenosis, 90% of left interna l carotid artery stenosis. Impression And Plan: 1.The patient has malignant hypertension. The patient will start medication for blood pressure cont rol. Angiotensin receptor noé will be started. The patient cannot take HCTZ due to hyponatremia . 2.Acute on chronic kidney injury with prerenal azotemia and renal hypoperfusion. Monitor renal func tion. Check renal artery Doppler to rule out renal artery stenosis. 3.Proteinuria. Workup is initiated for proteinuria. The patient will follow up outpatient to rule out monoclonal gammopathy of unknown significance. EB/MODL Voice ID: [id number] Report ID: [id number]
--- NOTE | 2018-08-07 16:18 | CON ---
Date of Consultation: 08/06/2018 Chief Complaint: Abnormal kidney function test, severe hypertension, hypertensive heart and kidney. History Of Present Illness: The patient came to the hospital because of uncontrolled hypertension. Blood pressure was 200/120. The patient was started on nicardipine drip in the hospital. The blood pressure was severely elevated. The patient has some slurred speech, and had workup done w hich did not show acute CVA. Blood pressure was gradually controlled with nicardipine drip and a nep hrology consultation is requested for renal insufficiency. The patient does not have a history of ki dney stones, hematuria, or cancer. The patient is on multiple blood pressure medications. Previousl y, the patient was seen by [facility]. The patient presented with hypertensive crisis and was foun d to have elevated BUN and creatinine. Electrolytes remained within normal ranges. The patient is u ndergoing workup for malignant hypertension. The patient, at this point, denies chest pain, nausea, vomiting, PND, orthopnea. Past Medical History: Hypertension, hypertensive heart and kidney disease, history of atrophic one k idney. Denies history of kidney stones. The patient has history of hyperlipidemia. Denies COPD and diabetes. Has history of cataract surgery. Family History: Hypertension. Brother had cancer. Social History: Former smoker. Denies illicit drugs. Objective: Vital Signs: Blood pressure 200/103, temperature 98.3, respirations 16, SpO2 98%. Eyes: Anicteric sclerae. EOMI. Ears, Nose, Mouth and Throat: Oral mucosa moist. No pallor. NECK: Supple. No JVD. No bruits. LUNGS: Few crackles at bases. HEART: S1, S2. ABDOMEN: Soft. Benign. EXTREMITIES: Edema present in both legs. Laboratory Data: INR is 1.08. PT is 12.7. WBC is 8.2. Impression And Plan: 1.Severe hypertension hypertensive crisis. Plan is to order a renal artery Doppler to rule out jose l artery stenosis. 2.Hyponatremia hypoosmolar. The patient will have workup to rule out hypothyroid. Avoid HCTZ. 3.Hypertension. The patient will continue current medication. Plan is to add angiotensin receptor noé. 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 There is element of prerenal azotemia, acute kidney injury. Avoid nonsteroidal anti-inflammatory me dication. 5.Proteinuria. Plan is to rule out monoclonal gammopathy of unknown significance. 6.Plan is to check urinalysis to rule out nephritis and other vasculitis if needed. 7.Hypertensive heart and kidney disease. Workup is pending from [facility] to assess ejection fra ction. SUNSHINE/SALMA Voice ID: [id number] Report ID: [id number]
--- NOTE | 2018-08-07 17:36 | DS ---
Code status: Full Date of Discharge: 08/07/2018 Consultants: 1. Dr. Bui with Cardiology. 2. Dr. Camilo with Nephrology. Admitting Diagnoses: 1. Hypertensive emergency. 2. Generalized weakness. 3. Acute kidney injury. Discharge Diagnoses: 1. Hypertensive emergency, improved. 2. Acute kidney injury, creatinine improved. 3. Generalized weakness. 4. Hyponatremia. 5. Carotid artery stenosis, added on statin. 6. Solitary kidney. Hospital Course: The patient is an 83-year-old male with past medical history of hypertension, who comes in due to hypertensive emergency with a blood pressure of 200/120s. The patient had been started on nicardipine drip in the ER. Blood pressure became very low. The patient started having slurred speech. Nicardipine drip was stopped. Workup was done to rule out acute stroke , which was negative. The patient was then referred for admission for uncontrolled blood pressure. Carotid artery ultrasound showed significant carotid artery stenosis. The patient will need a carotid artery angiogram. However, due to his solitary kidney and kidney dysfunction, the patient will be need delayed angiogram done as an outpatient by Dr. Bui. The patient was seen by [facility], Dr. Bui for his uncontrolled blood pressure. Medications were adjusted. The patient will also need a Lexiscan as an outpatient. Abdominal artery ultrasound to rule out renal stenosis was done, which was negative. The patient was also seen by Dr. Camilo with Nephrology. The patient otherwise did well. There is no further intervention from Nephrology or Cardiology. The patient was then cleared for discharge. He will need further workup for his proteinuria and to rule out other issues such as nephritis or vasculitis. The patient did well with the medications. Continue medications orally. He did require some clonidine p.r.n. and hydralazine IV to control his blood pressure. Overall patient did well, did have any further episodes of confusion or slurred speech. His blood pressure improved to the 160s. He understands that his blood pressures have been in the high 200/180s for a long period of time and he will need slow titration of his blood pressure. We would not recommend immediately decreasing his blood pressures in the 120s or 130s due to his kidney dysfunction. For now, goal was set at 150s to 170s to slowly titrate to 130s to 150s. The patient will need close followup with his PCP, Pathology, and Cardiology to titrate his blood pressure medications and coordinate his care. The patient was then discharged home in a stable condition. Activity: As tolerated. Medications: As per medication reconciliation list. Followup: Follow up with primary care physician in 2-3 weeks days. Follow up with [facility], Dr. Montoya, in 2 weeks. Return to ER for worsening condition. Diet: Heart healthy, renal diet. Physical Examination: General: Awake, alert, oriented x3. No acute distress, elderly male. CV: S1 and S2. No murmurs. Respiratory: Moving air well bilaterally. Abdomen: Soft, nontender, nondistended. Positive bowel sounds. Extremities: No clubbing, cyanosis, or edema. Neurologic: Nonfocal. Repeat BMP in 1 week. /SALMA Voice ID: [id number] Report ID: [id number] [id number]
--- NOTE | 2018-08-07 20:12 | PN ---
Subjective: Mr. Cox was seen yesterday by me because of carotid stenosis, renal insufficiency, hy pertensive crisis. He remained hypertensive today. He is now on metoprolol, Norvasc, losartan. Blo od pressure is still 170/110. Creatinine is 1.8. Mr. Cox recently had a renal Doppler in the off ice showing 1 kidney on the left. No renal artery stenosis in my office. Has not had a stress test for about 3 years. I think we need to change his losartan to Hyzaar. I need to give him clonidine a s needed. He can go home if his blood pressure is well controlled. I will make arrangements for an outpatient Lexiscan and decide a carotid angiogram soon as he has severe carotid stenosis greater on the left than the right. RAINE/SALMA Voice ID: [id number] Report ID: [id number]
[2018-08-07] MEDS ORDERED: DOXAZOSIN 2 MG TAB PO SCH (21:00)
[2018-08-07] MEDS ORDERED: ATORVASTATIN 80 MG TAB PO SCH (21:00)
--- NOTE | 2018-08-09 08:03 | ECHO ---
HEIGHT: 5 ft 7 in WEIGHT: 162 lb 6.4 oz DATE OF STUDY: 08/06/[address]: Claudia Lynch MD 2-DIMENSIONAL: YES M.MODE: YES DOPPLER: YES COLOR FLOW: YES TDS: NO PORTABLE: NO DEFINITY: NO BUBBLE STUDY: NO DIAGNOSIS: HYPERTENSION URGENCY CARDIAC HISTORY: CATHERIZATION: NO SURGERY: NO PROSTHETIC VALVE: NO PACEMAKER: NO MEASUREMENTS (cm) DIASTOLIC (NORMALS) SYSTOLIC (NORMALS) IVSd 1.0 (0.6-1.2) LA Diam 4.3 (1.9-4.0) LVEF 51% LVIDd 4.2 (3.5-5.7) LVIDs 3.1 (2.0-3.5) %FS 26% LVPWd 1.2 (0.6-1.2) Ao Diam 2.9 (2.0-3.7) 2 DIMENSIONAL ASSESSMENT: RIGHT ATRIUM: NORMAL LEFT ATRIUM: DILATED RIGHT VENTRICLE: NORMAL LEFT VENTRICLE: NORMAL TRICUSPID VALVE: NORMAL MITRAL VALVE: NORMAL PULMONIC VALVE: NORMAL AORTIC VALVE: SCLEROSIS PERICARDIAL EFFUSION: NONE AORTIC ROOT: NORMAL LEFT VENTRICULAR WALL MOTION: NORMAL DOPPLER/COLOR FLOW: MILD TRICUSPID REGURGITATION. COMMENTS: MILD TRICUSPID REGURGITATION. AORITC SCLEROSIS. LEFT ATRIAL ENLARGEMENT. NORMAL LEFT VENTRICULAR SIZE AND FUNCTION. TECHNOLOGIST: Austen BURGESS
== END 2018-08-07 14:54 | disposition home or self-care (01) ==
LOC: ER 09:35 → INTOOBSV 16:20 → ERHOLD 16:20 → 4TH 22:25
PROVIDERS: ADMIT Family Medicine; ATTEND Hospitalist
DX: I16.1 Hypertensive emergency (principal); N17.9 Acute kidney failure, unspecified; R53.1 Weakness; E87.1 Hypo-osmolality and hyponatremia; I65.29 Occlusion and stenosis of unspecified carotid artery; Q60.0 Renal agenesis, unilateral
CPT/HCPCS: 96365; 93005; 93306; 85025 ×3; 80048; 36415 ×2; 83735 ×3; 84100 ×2; 85610; 80061; 80076; 84443; 81003; 84484; 84439; 80053 ×2; 82533; 82088; 83880; 84402; 83835; 84244; 70450 ×2; 71045; 93880; 93975; 70551; 94760 ×3; 96375; 99285; 96366; J0360 ×3; J1650 ×2; G0378 ×2

== ENCOUNTER 2018-08-12 23:55 | Emergency (ER) | payer OTHER ==
--- NOTE | 2018-08-13 01:17 | ER ---
Nurse's Notes [facility] Name: John Cox Age: 83 yrs Sex: Male : 1935 Arrival Date: 08/12/2018 Time: 23:56 Bed 19 Private MD: Ankita Corbett H Diagnosis: Essential (primary) hypertension Presentation: 08/12 23:59 Presenting complaint: Patient states: "My blood pressure is running high. I was jd3 discharged last week with high blood pressure from hospital.". Transition of care: patient was not received from another setting of care. Onset of symptoms was August 13, 2018. Risk Assessment: Do you want to hurt yourself or someone else? Patient reports no desire to harm self or others. Initial Sepsis Screen: Does the patient meet any 2 criteria? No. Patient's initial sepsis screen is negative. Does the patient have a suspected source of infection? No. Patient's initial sepsis screen is negative. Care prior to arrival: Medication(s) given: Clonidine at 2250 and Valsartan 2130. 23:59 Method Of Arrival: Ambulatory jd3 23:59 Acuity: JES 3 jd3 Historical: - Allergies: 08/13 00:03 No Known Allergies; jd3 - Home Meds: 00:03 Clonidine Oral [Active]; valsartan oral oral [Active]; jd3 - PMHx: 00:03 Hypertension; jd3 - PSHx: 00:03 cateract; jd3 - Immunization history:: Adult Immunizations up to date. - Social history:: Smoking status: Patient/guardian denies using tobacco, but has a distant history of tobacco abuse. - Ebola Screening: : Patient negative for fever greater than or equal to 101.5 degrees Fahrenheit, and additional compatible Ebola Virus Disease symptoms. Screenin:18 Abuse screen: Denies threats or abuse. Nutritional screening: No deficits noted. tl2 Tuberculosis screening: No symptoms or risk factors identified. Fall Risk Gait- Weak (10 pts.). Assessment: 00:18 General: Appears in no apparent distress. comfortable, Behavior is calm, cooperative, tl2 appropriate for age. General: pt reports taking BP at home, read 217 systolic and took night time BP meds. BP is starting to trend down. Pain: Denies pain. Neuro: Level of Consciousness is awake, alert, obeys commands, Oriented to person, place, time, situation. Neuro: Denies weakness blurred vision dizziness, headache. Cardiovascular: Denies chest pain. Respiratory: Airway is patent Respiratory effort is even, unlabored, Respiratory pattern is regular, symmetrical. GI: No signs and/or symptoms were reported involving the gastrointestinal system. : No signs and/or symptoms were reported regarding the genitourinary system. Derm: Skin is pink, warm \\T\\ dry. 01:31 Reassessment: Patient appears in no apparent distress at this time. Patient and/or tl2 family updated on plan of care and expected duration. Pain level reassessed. Patient is alert, oriented x 3, equal unlabored respirations, skin warm/dry/pink. pt verbalized understanding of discharge instructions, need for follow up. Vital Signs: 00:03 BP 176 / 87; Pulse 101; Resp 19 S; Temp 97.6(O); Pulse Ox 98% on R/A; Weight 77.11 kg jd3 (R); Height 5 ft. 7 in. (170.18 cm) (R); Pain 0/10; 00:39 BP 177 / 81; Pulse 56; Resp 18; Pulse Ox 99% on R/A; tl2 01:07 BP 164 / 84; Pulse 53; Resp 18; Pulse Ox 98% on R/A; tl2 01:31 BP 155 / 84; Pulse 55; Resp 18; Pulse Ox 96% on R/A; tl2 00:03 Body Mass Index 26.63 (77.11 kg, 170.18 cm) jd3 ED Course: 08/12 23:56 Patient arrived in ED. am2 23:56 Ankita Corbett DO is Private Physician. am2 03 00:01 Triage completed. jd3 00:05 Arm band placed on. jd3 00:13 Diallo Amaya PA is PHCP. jr8 00:13 Ezequiel Speras MD is Attending Physician. jr8 00:18 Tatum Tariq, ISI is Primary Nurse. tl2 00:18 Patient has correct armband on for positive identification. Bed in low position. Call tl2 light in reach. Side rails up X 1. Adult w/ patient. 01:16 Rory Bui MD is Referral Physician. jr8 01:34 No provider procedures requiring assistance completed. Patient did not have IV access tl2 during this emergency room visit. Administered Medications: No medications were administered Outcome: 01:16 Discharge ordered by . 8 01:34 Discharged to home ambulatory, with family. tl2 01:34 Condition: stable 01:34 Discharge instructions given to patient, family, Instructed on discharge instructions, follow up and referral plans. Demonstrated understanding of instructions, follow-up care. 01:34 Patient left the ED. tl2 Signatures: Diallo Amaya PA PA jr8 Tatum Tariq, RN RN tl2 Deedee Heaton Jonathon RN RN jd3 Corrections: (The following items were deleted from the chart) 00:03 03 23:59 Care prior to arrival: None. [email or web address]
--- NOTE | 2018-08-13 01:17 | EDPHYS ---
Physician Documentation [facility] Name: John Cox Age: 83 yrs Sex: Male : 1935 Arrival Date: 08/12/2018 Time: 23:56 Bed 19 Private MD: Ankita Corbett H ED Physician Ezequiel Spears HPI: 08/13 00:24 This 83 yrs old Male presents to ER via Ambulatory with complaints of High jr8 Blood Pressure. 00:24 The patient has elevated blood pressure and discovered this at home, with a home jr8 device. Onset: The symptoms/episode began/occurred acutely, today. Modifying factors: The symptoms are aggravated by activity, The symptoms are alleviated by prescription meds, clonidine. Associated signs and symptoms: The patient has no apparent associated signs or symptoms. Severity of symptoms: At its worst the blood pressure was moderate, in the emergency department the blood pressure is improved, mildly. The patient has experienced similar episodes in the past, several times. The patient has been recently seen by a physician:. Patient recently admitted for HTN Emergency and was started on new BP medications. Noted tonight that his BP was in the 200s systolic. Took his clonidine before coming but was suppose to take it earlier. BP now in the 170s. Denies any s/s. . Historical: - Allergies: 00:03 No Known Allergies; jd3 - Home Meds: 00:03 Clonidine Oral [Active]; valsartan oral oral [Active]; jd3 - PMHx: 00:03 Hypertension; jd3 - PSHx: 00:03 cateract; jd3 - Immunization history:: Adult Immunizations up to date. - Social history:: Smoking status: Patient/guardian denies using tobacco, but has a distant history of tobacco abuse. - Ebola Screening: : Patient negative for fever greater than or equal to 101.5 degrees Fahrenheit, and additional compatible Ebola Virus Disease symptoms. ROS: 00:24 Eyes: Negative for injury, pain, redness, and discharge, ENT: Negative for injury, jr8 pain, and discharge, Neck: Negative for injury, pain, and swelling, Cardiovascular: Negative for chest pain, palpitations, and edema, Respiratory: Negative for shortness of breath, cough, wheezing, and pleuritic chest pain, Abdomen/GI: Negative for abdominal pain, nausea, vomiting, diarrhea, and constipation, Back: Negative for injury and pain, MS/Extremity: Negative for injury and deformity, Skin: Negative for injury, rash, and discoloration, Neuro: Negative for headache, weakness, numbness, tingling, and seizure. Exam: 00:24 Eyes: Pupils equal round and reactive to light, extra-ocular motions intact. Lids and jr8 lashes normal. Conjunctiva and sclera are non-icteric and not injected. Cornea within normal limits. Periorbital areas with no swelling, redness, or edema. ENT: Nares patent. No nasal discharge, no septal abnormalities noted. Tympanic membranes are normal and external auditory canals are clear. Oropharynx with no redness, swelling, or masses, exudates, or evidence of obstruction, uvula midline. Mucous membranes moist. Neck: Trachea midline, no thyromegaly or masses palpated, and no cervical lymphadenopathy. Supple, full range of motion without nuchal rigidity, or vertebral point tenderness. No Meningismus. Cardiovascular: Regular rate and rhythm with a normal S1 and S2. No gallops, murmurs, or rubs. Normal PMI, no JVD. No pulse deficits. Respiratory: Lungs have equal breath sounds bilaterally, clear to auscultation and percussion. No rales, rhonchi or wheezes noted. No increased work of breathing, no retractions or nasal flaring. Abdomen/GI: Soft, non-tender, with normal bowel sounds. No distension or tympany. No guarding or rebound. No evidence of tenderness throughout. Back: No spinal tenderness. No costovertebral tenderness. Full range of motion. Skin: Warm, dry with normal turgor. Normal color with no rashes, no lesions, and no evidence of cellulitis. MS/ Extremity: Pulses equal, no cyanosis. Neurovascular intact. Full, normal range of motion. Neuro: Awake and alert, GCS 15, oriented to person, place, time, and situation. Cranial nerves II-XII grossly intact. Motor strength 5/5 in all extremities. Sensory grossly intact. Cerebellar exam normal. Normal gait. Vital Signs: 00:03 BP 176 / 87; Pulse 101; Resp 19 S; Temp 97.6(O); Pulse Ox 98% on R/A; Weight 77.11 kg jd3 (R); Height 5 ft. 7 in. (170.18 cm) (R); Pain 0/10; 00:39 BP 177 / 81; Pulse 56; Resp 18; Pulse Ox 99% on R/A; tl2 01:07 BP 164 / 84; Pulse 53; Resp 18; Pulse Ox 98% on R/A; tl2 01:31 BP 155 / 84; Pulse 55; Resp 18; Pulse Ox 96% on R/A; tl2 00:03 Body Mass Index 26.63 (77.11 kg, 170.18 cm) jd3 MDM: 00:13 Patient medically screened. jr8 01:15 Data reviewed: vital signs, nurses notes, and as a result, I will discharge patient. jr8 Data interpreted: Pulse oximetry: on room air is 98 %. Interpretation: normal. Counseling: I had a detailed discussion with the patient and/or guardian regarding: the historical points, exam findings, and any diagnostic results supporting the discharge/admit diagnosis, the need for outpatient follow up, a apartment leasing consultant, to return to the emergency department if symptoms worsen or persist or if there are any questions or concerns that arise at home. ED course: Patients BP continues to normalize. Still without symptoms. Will send home to f/u with cardiology . Administered Medications: No medications were administered Disposition: 03:17 Co-signature as Attending Physician, Ezequiel Spears MD. rn Disposition: 08/13/18 01:16 Discharged to Home. Impression: Essential (primary) hypertension. - Condition is Stable. - Discharge Instructions: Hypertension. - Medication Reconciliation Form, Thank You Letter, Antibiotic Education, Prescription Opioid Use form. - Follow up: Rory Bui MD; When: 1 - 2 days; Reason: Recheck today's complaints, Continuance of care, Re-evaluation by your physician. - Problem is new. - Symptoms have improved. Signatures: Ezequiel Spears MD MD rn Roszak, Josh, PA PA jr8 Tatum Tariq RN RN tl2 Alhaji Ramos RN RN jd3 Corrections: (The following items were deleted from the chart) 01:34 01:16 08/13/2018 01:16 Discharged to Home. Impression: Essential (primary) tl2 hypertension. Condition is Stable. Forms are Medication Reconciliation Form, Thank You Letter, Antibiotic Education, Prescription Opioid Use. Follow up: Rory Bui; When: 1 - 2 days; Reason: Recheck today's complaints, Continuance of care, Re-evaluation by your physician. Problem is new. Symptoms have improved. jr8
== END 2018-08-13 01:34 | disposition home or self-care (01) ==
LOC: ER 23:55
DX: I10 Essential (primary) hypertension (principal)
CPT/HCPCS: 99281

== ENCOUNTER 2018-08-25 06:51 | Day surgery (SDC) | payer OTHER ==
[2018-08-23 11:48] LABS: Protime INR 1.11
[2018-08-23 11:56] LABS: Absolute Monocytes 0.8 K/uL (0.1-1.3); Absolute Neutrophil 5.9 K/uL (1.8-8.0); Basophils % 0.9 % (0-1.3); Eosinophils % 4.2 % (0-4.4); Hematocrit 40.2 % (39.6-49.0); MPV 9.8 fL (7.6-11.3); Monocytes % 9.6 % (3.3-12.3)
[2018-08-25] MEDS ORDERED: LIDOCAINE 1% MPF 30 ML VIAL ONE (07:17)
[2018-08-25] MEDS ORDERED: HEPA 1000U/500MLS 2,000 UNIT/1,000 ML BAG IV ONE (07:17)
[2018-08-25] MEDS ORDERED: NA CHLORIDE 0.9% 500 ML ONE (07:38)
[2018-08-25] MEDS ORDERED: HYDRALAZINE HCL 20 MG/ML VIAL ONE ×2 (08:04→09:56)
[2018-08-25] MEDS ORDERED: ATROPINE SULF 1 MG/10 ML SYR IV ONE (08:04)
[2018-08-25] MEDS ORDERED: MIDAZOLAM HCL 2 MG/2 ML INJ ONE (08:04)
[2018-08-25] MEDS ORDERED: HEPARIN 5000 UNIT/ML 1 ML VIAL ONE (08:04)
[2018-08-25] MEDS ORDERED: FENTANYL CITR 100 MCG/2 ML ONE (08:05)
--- NOTE | 2018-08-25 19:48 | OP ---
Surgeon: Ted Montoya MD Procedure: The patient had bilateral selective carotid angiograms. 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 On the right, it was about 20% stenotic. On the l eft, about 60% stenotic, but with several ulcerated areas very capable of causing TIAs, and the recom mendation will be for a left carotid endarterectomy. Procedure In Detail: The patient gave informed consent, was brought to the cardiac collaborative physician in a fas ting state, sedated with Versed, fentanyl, prepared and draped. Right femoral artery identified thro ugh palpation. Tissues around the artery anesthetized. The artery entered with an 18-gauge needle, cannulated with a short J-wire. 4-Tanzanian sheath was placed, and we did all of the angiograms through a coronary JR4 4-T[place] catheter. We angiogram the right in 2 views, the left in 4 different views. At the end of the procedure, catheter was withdrawn. Angiogram was done of the right femoral arter y through the sheath and a decision was made to close using an Angio-Seal device. This was done succ essfully. Complications: No complications. Estimated Blood Loss: 10 cc. Equipment Records Supervisor: Addison Shelton. JAMILAH/SALMA Voice ID: [id number] Report ID: [id number]
== END 2018-08-25 12:35 | disposition home or self-care (01) ==
LOC: CCL 06:51
PROVIDERS: ATTEND Internal Medicine
DX: I65.23 Occlusion and stenosis of bilateral carotid arteries (principal); I10 Essential (primary) hypertension; I48.1 Persistent atrial fibrillation; E78.6 Lipoprotein deficiency; E78.5 Hyperlipidemia, unspecified; Z79.82 Long term (current) use of aspirin; Z79.899 Other long term (current) drug therapy; Z82.49 Family history of ischemic heart disease and other diseases of the circulatory system; Z90.5 Acquired absence of kidney
CPT/HCPCS: 93005; 85025; 80048; 36415; 85610; 85730; 36222; C1893; C1760; J0360 ×2; J2250; J3010; J1644

== ENCOUNTER 2020-08-12 08:24 | Inpatient (IN) | payer OTHER ==
--- OUTSIDE RECORDS SUMMARY | 2020-08-12 08:29 | XMS REPORT | Continuity of Care Document ---
:[address] [facility] t Address [facility] [place] [address] Care Team Providers Name Role Phone CHAPARRO ARGUELLES Attending Clinician Unavailable CHAPARRO ARGUELLES Admitting Clinician Unavailable Problems Condition Condition Condition Status Onset Resolution Last Treating Co mments Source Name Details Category Date Date Treatment Clinician Date Postoperat Postoperat Disease Active [facility] urinary urinary 00:00: Medical retention retention 00 Cent er Hyponatrem Hyponatrem Disease Active [facility] ia ia 4-10 [facility] - 00:00: Medical 00 [place] Elevated Elevated Disease [facility] - creatinine creatinine 00:00: Me dical 00 [place] Anemia Anemia Disease Active 2018- [facility] - 00[facility]: Medical 00 [place] Carotid Carotid Disease Active 2018- [facility] artery artery 4-08 [facility] - stenosis stenosis 00:00: Medica l 00 Center S/P S/P Disease Active 2018- [facility] carotid carotid 4-08 [facility] - endarterec endarterec 00:00: Me dical valorie valorie 00 Center Respirator Respirator Disease Active 2018- [facility] y y 4-08 [facility] - insufficie insufficie 00:00: Me dical ncy ncy 00 Center 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 Hyperlipid Hyperlipid Disease Active [facility] em[facility] em[facility] Allergies, Adverse Reactions, Alerts Allergy Allergy Status Severity Reaction(s) Onset Inactive Treating Comm ents Source Name Type Date Date Clinician Kenan Bermudez Active Hives [facility] ne [facility] to 08-30 [facility] - adverse 00:00: Medical reaction 00 Center s Social History Social Habit Start Date Stop Date Quantity Comments Source History [facility] - Alcohol Std Drinks [facility] History [facility] - Alcohol Binge Medical [address] Sex Assigned At [facility] Estrellita kes - [facility] Tobacco use and 2018-09-13 2018-09-[address] Estrell[facility] kes - exposure 00:00:00 00:00:00 [facility] Alcohol intake 2018-09-13 2018-09-13 Current drink[facility] - 00:00:00 00:00:00 alcohol (finding) [facility] Cigarettes smoked 2018-09-13 2018-09-[address] [facility] - current (pack per 00:00:00 00:00:00 [facility] Center day) - Reported Cigarette 2018-09-13 2018-09-[address] [facility] - pack-years 00:00:00 00:00:00 [facility] Center History SDOH 2018-08-26 2018-08-[address] [facility] - Alcohol Frequency 00:00:00 00:00:00 [facility] Alcohol Comment 2018-08-26 2018-08-[address] Estrellita kes - 00:00:00 00:00:00 [facility] History of tobacco 1969-05-[address] [facility] - use 00:00:00 [facility] Smoking Status Start Date Stop Date Source Former smoker 2018-09-13 00:00:00 2018-09-13 00:00:00 [facility] Medications Ordered Filled Start Stop Current Ordering Indication Dosage Frequency Signature Comments Components Source Medication Medication Date Date Medication? Clinician (SIG) Name Name cloNIDine 2020- No 1{patch Q7D Place [address] (CATAPRES-T 09-14 } patch onto L ukes - TS) 0.2 00:00: 23:59 the skin Medic al mg/24 hr 00 :00 once a Center patch week. aspirin 81 Yes 81mg QD Take [address] MG EC 4-22 by mouth [facility] - tablet 11:04: daily. Medical 31 Center valsartan Yes 320mg QD Take [address] (DIOVAN) 4-22 mg by [facility] - 320 MG 11:04: mouth Medical tablet 31 daily. Center isosorbide 2020- No 30mg QD Take [address] mononitrate 4-18 04-17 tablet (30 L ukes - (IMDUR) 30 00:00: 23:59 mg total) M edical MG 24 hr 00 :00 by mouth Center tablet daily. apixaban Yes 2.5mg Q.5D Take [address] (ELIQUIS) 4-17 tablet [facility] - 2.5 mg Tab 00:00: (2.5 mg Medi christian tablet 00 total) by Center mouth 2 (two) times daily. hydrALAZINE 2019- No 100mg [id number] Take [address] (APRESOLINE 4-17 04-16 [id number] tablet [facility] - ) 100 MG 00:00: 23:59 3D (100 mg Medic al tablet 00 :00 total) by Center mouth 3 (three) times daily. atorvastati Yes 80mg QD Take [address] n (LIPITOR) 3-16 by mouth Luke s - 80 MG 00:00: daily. Medical tablet 00 Center Procedures This patient has no known procedures. Plan of Care Planned Activity Planned Date Details Comments Source Future Scheduled 2020-01-24 INFLUENZA VACCINE (#1) [facility] - Test 00:00:00 [code = INFLUENZA Medical Ce nter VACCINE (#1)] Future Scheduled 2019-05-[address] [facility] - Test 00:00:00 WELLNESS (YEAR 2 or Medical Center FIRST YEAR if no IPPE) [code = MEDICARE ANNUAL WELLNESS (YEAR 2 or FIRST YEAR if no IPPE)] Future Scheduled 1998 PNEUMOCOCCAL 65+ YRS [facility] - Test 00:00:00 (1 of 1 - Medical Center [id number] PCV13) [code = PNEUMOCOCCAL 65+ YRS (1 of 1 - [id number] PCV13)] Results Test Description Test Time Test Comments Results Result Comments Source BODY FLUID CULTURE + GRAM STAIN 2018-09-09 12:08:00 Test Item Value Reference Range Interpretation Comme nts CULTURE (BEAKER) (test code = 1095) No growth GRAM STAIN RESULT (BEAKER) (test code = 1123) No WBCs GRAM STAIN RESULT (BEAKER) (test code = 37426) No organisms seen RAD, CHEST, 1 VIEW, NON [id number] 12:42:00Reason for exam:->pleural effusionShould this be performed at the bedside?->YesFINAL REPORT INDICATION: pleural effusion COMPARISON:September 06 TECHNIQUE: Chest radiograph, single view, portable technique. FINDINGS / IMPRESSION: No pleural effusion is demonstrated. No consolidation, pneumothorax, or pulmonary edema. Heart shadow is prominent. Osseous structures unremarkable. Signed: Edgar [place] Verified Date/Time: 09/08/2018 12:42:40 Reading Location: [address] Consult Reading Room Electronically signed by: EDGAR NEWTON M.D. on09/08/2018 12:42 [id number] 05:01:00 Test Item Value Reference Range Interpretation Comments MAGNESIUM (BEAKER) (test code = 1.5 mg/dL 1.6-2.6 L 627) BASIC METABOLIC [id number] 05:01:00 Test Item Value Reference Range Interpretation Comments SODIUM (BEAKER) 129 meq/L 136-145 L (test code = 381) POTASSIUM (BEAKER) 4.1 meq/L 3.5-5.1 (test code = 379) CHLORIDE (BEAKER) 102 meq/L 98-107 (test code = 382) CO2 (BEAKER) (test 21 meq/L 22-29 L code = 355) BLOOD UREA NITROGEN 26 mg/dL 7-21 H (BEAKER) (test code = 354) CREATININE (BEAKER) 1.74 mg/dL 0.57-1.25 H (test code = 358) GLUCOSE RANDOM 96 mg/dL 70-105 (BEAKER) (test code = 652) CALCIUM (BEAKER) 8.4 mg/dL 8.4-10.2 (test code = 697) EGFR (BEAKER) (test 37 mL/min/1.73 ESTIMA MARVIN GFR IS code = 1092) sq m NOT ACCURATE CREATININE CLEARANCE IN PREDICTING GLOMERULAR FILTRATION RATE . ESTIMATED GFR I S NOT APPLICABLE FOR DIALYSIS PATIEN TS. CBC W/PLT COUNT & AUTO [id number] 04:41:00 Test Item Value Reference Range Interpretation Comments WHITE BLOOD CELL COUNT (BEAKER) 10.9 K/ L 3.5-10.5 H (test code = 775) RED BLOOD CELL COUNT (BEAKER) 3.33 M/ L 4.63-6.08 L (test code = 761) HEMOGLOBIN (BEAKER) (test code = 10.4 GM/DL 13.7-17.5 L 410) HEMATOCRIT (BEAKER) (test code = 30.2 % 40.1-51.0 L 411) MEAN CORPUSCULAR VOLUME (BEAKER) 90.7 fL 79.0-92.2 (test code = 753) MEAN CORPUSCULAR HEMOGLOBIN 31.2 pg 25.7-32.2 (BEAKER) (test code = 751) MEAN CORPUSCULAR HEMOGLOBIN CONC 34.4 GM/DL 32.3-36.5 (BEAKER) (test code = 752) RED CELL DISTRIBUTION WIDTH 13.1 % 11.6-14.4 (BEAKER) (test code = 412) PLATELET COUNT (BEAKER) (test 224 K/CU MM 150-450 code = 756) MEAN PLATELET VOLUME (BEAKER) 9.6 fL 9.4-12.4 (test code = 754) NUCLEATED RED BLOOD CELLS 0 /100 WBC 0-0 (BEAKER) (test code = 413) NEUTROPHILS RELATIVE PERCENT 68 % (BEAKER) (test code = 429) LYMPHOCYTES RELATIVE PERCENT 11 % (BEAKER) (test code = 430) MONOCYTES RELATIVE PERCENT 14 % (BEAKER) (test code = 431) EOSINOPHILS RELATIVE PERCENT 6 % (BEAKER) (test code = 432) BASOPHILS RELATIVE PERCENT 1 % (BEAKER) (test code = 437) NEUTROPHILS ABSOLUTE COUNT 7.39 K/ L 1.78-5.38 H (BEAKER) (test code = 670) LYMPHOCYTES ABSOLUTE COUNT 1.15 K/ L 1.32-3.57 L (BEAKER) (test code = 414) MONOCYTES ABSOLUTE COUNT (BEAKER) 1.50 K/ L 0.30-0.82 H (test code = 415) EOSINOPHILS ABSOLUTE COUNT 0.66 K/ L 0.04-0.54 H (BEAKER) (test code = 416) BASOPHILS ABSOLUTE COUNT (BEAKER) 0.10 K/ L 0.01-0.08 H (test code = 417) IMMATURE GRANULOCYTES-RELATIVE 1 % 0-1 PERCENT (BEAKER) (test code = 2801) [id number] 15:48:00Medical Cytology Report Case: [id number] Authorizing Provider: Giancarlo Joseph MD Collected: 09/06/2018 1551 Ordering Location: [address] Received: 09/07/2018 1302 Service Pathologist: Ervin Crawford MD Specimen: Pleural, Right RIGHT PLEURAL FLUID (CYTOSPINS): - NEGATIVE FOR MALIGNANCY - Inflammation present Signing Pathologist Direct Phone Line: [phone] signed by Ervin Crawford MD on 09/07/2018 at 3:48 [id number] pleural effusion; HTN, HLD, afib, CKD 3/4 who presented on 08/30 for elective carotid endarterectomy for symptomatic left carotid stenosis 50-60%RIGHT PLEURAL FLUIDPrepared 4 cytospins from 1100 ml yellow fluidCollected: [id number]: [id number] [facility], Department of Pathology, [address] [place] [id number], [facility], [facility], [address] [place] [address], [facility], Department of Pathology, [address] [place] [address], WTPRDJJRRC, [id number] 07:16:00 Test Item Value Reference Range Interpretation Comments OSMOLALITY, SERUM 271 mOsm/kg 275-295 L Performed at [facility] ([employer]) (test Laboratories code = 615) OSMOLALITY, [id number] 07:15:00 Test Item Value Reference Range Interpretation Comments OSMOLALITY URINE 221 mOsm/kg 40-1,400 Performed a t [facility] ([employer]) (test code Laborato mey = 614) [id number] 04:41:00 Test Item Value Reference Range Interpretation Comments MAGNESIUM ([employer]) (test code = 1.7 mg/dL 1.6-2.6 627) BASIC METABOLIC [id number] 04:41:00 Test Item Value Reference Range Interpretation Comments SODIUM (BEAKER) 130 meq/L 136-145 L (test code = 381) POTASSIUM (BEAKER) 4.3 meq/L 3.5-5.1 (test code = 379) CHLORIDE (BEAKER) 102 meq/L 98-107 (test code = 382) CO2 (BEAKER) (test 21 meq/L 22-29 L code = 355) BLOOD UREA NITROGEN 27 mg/dL 7-21 H (BEAKER) (test code = 354) CREATININE (BEAKER) 1.90 mg/dL 0.57-1.25 H (test code = 358) GLUCOSE RANDOM 113 mg/dL 70-105 H (BEAKER) (test code = 652) CALCIUM (BEAKER) 8.4 mg/dL 8.4-10.2 (test code = 697) EGFR (BEAKER) (test 34 mL/min/1.73 ESTIMA MARVIN GFR IS code = 1092) sq m NOT ACCURATE CREATININE CLEARANCE IN PREDICTING GLOMERULAR FILTRATION RATE . ESTIMATED GFR I S NOT APPLICABLE FOR DIALYSIS PATIEN TS. CBC W/PLT COUNT & AUTO [id number] 04:10:00 Test Item Value Reference Range Interpretation Comments WHITE BLOOD CELL COUNT (BEAKER) 11.1 K/ L 3.5-10.5 H (test code = 775) RED BLOOD CELL COUNT (BEAKER) 3.37 M/ L 4.63-6.08 L (test code = 761) HEMOGLOBIN (BEAKER) (test code = 10.5 GM/DL 13.7-17.5 L 410) HEMATOCRIT (BEAKER) (test code = 30.6 % 40.1-51.0 L 411) MEAN CORPUSCULAR VOLUME (BEAKER) 90.8 fL 79.0-92.2 (test code = 753) MEAN CORPUSCULAR HEMOGLOBIN 31.2 pg 25.7-32.2 (BEAKER) (test code = 751) MEAN CORPUSCULAR HEMOGLOBIN CONC 34.3 GM/DL 32.3-36.5 (BEAKER) (test code = 752) RED CELL DISTRIBUTION WIDTH 13.0 % 11.6-14.4 (BEAKER) (test code = 412) PLATELET COUNT (BEAKER) (test 215 K/CU MM 150-450 code = 756) MEAN PLATELET VOLUME (BEAKER) 10.2 fL 9.4-12.4 (test code = 754) NUCLEATED RED BLOOD CELLS 0 /100 WBC 0-0 (BEAKER) (test code = 413) NEUTROPHILS RELATIVE PERCENT 72 % (BEAKER) (test code = 429) LYMPHOCYTES RELATIVE PERCENT 10 % (BEAKER) (test code = 430) MONOCYTES RELATIVE PERCENT 12 % (BEAKER) (test code = 431) EOSINOPHILS RELATIVE PERCENT 4 % (BEAKER) (test code = 432) BASOPHILS RELATIVE PERCENT 1 % (BEAKER) (test code = 437) NEUTROPHILS ABSOLUTE COUNT 7.98 K/ L 1.78-5.38 H (BEAKER) (test code = 670) LYMPHOCYTES ABSOLUTE COUNT 1.12 K/ L 1.32-3.57 L (BEAKER) (test code = 414) MONOCYTES ABSOLUTE COUNT (BEAKER) 1.37 K/ L 0.30-0.82 H (test code = 415) EOSINOPHILS ABSOLUTE COUNT 0.47 K/ L 0.04-0.54 (BEAKER) (test code = 416) BASOPHILS ABSOLUTE COUNT (BEAKER) 0.08 K/ L 0.01-0.08 (test code = 417) IMMATURE GRANULOCYTES-RELATIVE 1 % 0-1 PERCENT (BEAKER) (test code = 2801) CT, CHEST, WITHOUT [id number] 21:27:00FINAL REPORT CT scan of the chest. MEDICAL HISTORY: Evaluate lung parenchyma,status post thoracentesis. COMPARISON STUDY: Chest x-ray dated September 06, 2018. TECHNIQUE: Contiguoushelical slices were acquired through the thorax without the administration of contrast. This exam was performed according to our department dose optimization program which includes automated exposure control, adjustment of the mA and/or kV according to the patient's size and/or use of iterative reconstruction technique. FINDINGS: The mediastinum demonstrates atherosclerosis but no suspicious masses or adenopathy. A 1.2 cm precarinal lymph node is seen. There are bilateral small pleural effusions. The visualized portions of the upper abdomen demonstrate atrophic changes in the left kidney. Granulomas are identified. The tracheobronchial tree is clear with no endobronchial lesions. The pulmonary parenchyma demonstrates atelectasis or consolidation of both lung bases. Some groundglass opacities are noted in the lung bases with interlobular septal thickening. A 4 mm nodule is seen in the left upper lobe on image eight. Bone windows demonstrate degenerative changes. IMPRESSION:1. Small bilateral pleural effusions with adjacent atelectasis or consolidation. Groundglass opacities are also seen which could be atelectatic in nature. In the right clinical setting, a superimposed infection would be difficult to exclude. Clinical correlation and short term imaging follow-up could be made to exclude other etiologies.2. 4 mm nodule in the left upper lobe. No imaging follow-up is needed in a low-risk patient. Signed: Garret Monteroeport Verified Date/Time: 09/06/2018 21:27:37 Reading Location: [address] Consult Reading Room U/S, RENAL WITH [id number] 21:10:00Reason for exam:->renal artery stenosisFINAL REPORT Renal ultrasound. Clinical History: renal artery stenosis. Comparison Study: None. Findings: The right kidney measures 12.3 x 5.2 x 3.3 cm and left kidney measures 6.8 x 3.7 x 2.3 cm. There is no evidence of hydronephrosis, nephrolithiasis or renal mass on either side. The echogenicity is normal bilaterally. The cortical thickness on the right side is 1.6 cm and onthe left side is 1.0 cm. Color flow is documented to both kidneys. The prevoid bladder volume is 435cc. The postvoid volume is 134 cc. The acceleration times and acceleration indices are abnormal in the right kidney but the ratio of the peak systolic velocity of the main renal artery/aorta is normal.The resistive indices in the upper, inter and lower polar portions of the right kidney are 0.6, 0.7 and 0.7 respectively. Doppler interrogation could not be obtained in the left kidney. Impression:1. Small sized left kidney.2. Increased postvoid residual volume of 144 cc.3. Limited Doppler, particularly on the left side. Signed: Garret Montero MDReport Verified Date/Time: 09/06/2018 21:10:02 Reading Location: [facility] [id number] Consult Reading Room U/S, THORACENTESIS 2018-09-06 17:31:00Laterality?->RightReason for exam:->pleural effusion, shortness of breathSpecimen to be collected:->yesShould this be performed at the bedside?->NoFINAL REPORT PROCEDURE: Ultrasound- guided right thoracentesis INDICATION: pleural effusion, shortness of breath. DESCRIPTION: After obtaining informed written consent, ultrasoundscan showed pleural effusion on the right. The overlying skin was prepped and draped in the usual, sterile fashion and local 1% lidocaine anesthesia was administered. A 4 Filipino catheter was advanced into the pleural cavity and 1500 mL of clear yellow fluid was removed. The catheter was removed without immediate complication. Samples were sent for analysis. IMPRESSION: Uncomplicated ultrasound-guidedright thoracentesis with 1500 mL of fluid removed. Signed: Parth Tanner Verified Date/Time: 09/06/2018 17:31:20 Reading Location: [address] Ultrasound Reading Room Electronically signedby: PARTH TANNER MD on 09/06/2018 05:31 PMRAD, CHEST, 1 VIEW, NON [id number] 17:27:00Reason for exam:->thoracentesisShould this be performed at the bedside?->YesFINAL REPORT Chest, one view. HISTORY: thoracentesis COMPARISON: Radiograph from earlier today IMPRESSION: The line in the right upper lung has decreased between the two examinations. In addition, lung markings extend all the way to the periphery. A questionable right lateral line seen on the first radiograph is very faint and lung markings extend beyond it, most consistent with a skinfold. This is more prominent on the second radiograph. However, the density of the overlapping area, the difference between all three examinations, and the lung markings which extend all the way to the periphery are most likely due to a skinfold. The heart is normal in size. No pleural effusion. The lungs are clear. Calcification of the aortic arch. No acute bony abnormality. Signed: Parth Tanner Verified Date/Time: 09/06/2018 17:27:36 Reading Location: [facility] [id number] Ultrasound Reading Room BODY FLUID CELL COUNT WITH [id number] 17:06:00 Test Item Value Reference Range Interpretation Comments APPEARANCE FLUID (BEAKER) Slightly Hazy Clear A (test code = 510) COLOR FLUID (BEAKER) (test Yellow Colorless, Straw A code = 511) RBC FLUID (BEAKER) (test code 390 /cu mm <=1 H = 513) ADJUSTED WBC FLUID (BEAKER) 330 /cu mm <=5 H (test code = 1691) LINING CELLS (BEAKER) (test 0 /cu mm <=1 code = 1590) NEUTROPHILS FLUID (BEAKER) 13 % (test code = 1656) LYMPHS FLUID (BEAKER) (test 8 % code = 488) MONO/MACROPHAGE FLUID (BEAKER) 79 % (test code = 489) EOSINOPHILS FLUID (BEAKER) 0 % (test code = 491) BASO FLUID (BEAKER) (test code 0 % = 492) CONTAINER BODY FLUID (BEAKER) EDTA Tube (test code = 2873) LACTATE DEHYDROGENASE (LDH), BODY [id number] 16:51:00 Test Item Value Reference Range Interpretation Comments LACTATE DEHYDROGENASE FLUID < U/L Light's criteria (BEAKER) (test code = 634) identifies effusions if one or more are pre Absence of reference range indicates that normals have not been defined.Assay performance has not been validated for this type of specimen.PLeural fluidPleural fluidPleural fluidPROTEIN, BODY [id number] 16:51:00 Test Item Value Reference Range Interpretation Comments PROTEIN FLUID (BEAKER) 2.0 g/dL Light's criteria identifies (test code = 579) effusions if one or more are pre Absence of reference range indicates that normals have not been defined.Assay performance has not been validated for this type of specimen.PLeural fluidPleural fluidPleural fluidGLUCOSE, BODY [id number] 16:51:00 Test Item Value Reference Range Interpretation Comments GLUCOSE, BODY FLUID (BEAKER) (test 128 mg/dL 70-110 H code = 1528) Absence of reference range indicates that normals have not been defined.Assay performance has not been validated for this type of specimen.PLeural fluidPleural fluidPleural fluidPH, BODY [id number] 16:46:00 Test Item Value Reference Range Interpretation Comments PH, BODY FLUID (BEAKER) (test code = 7.72 1530) RAD, CHEST, 1 VIEW, NON [id number] 16:35:00Reason for exam:->Right thoracentesisShould this be performed at the bedside?->YesFINAL REPORT TECHNIQUE: Frontal view of the chest. INDICATION: Right thoracentesis. COMPARISON: Radiograph from 09/03/2018. FINDINGS/IMPRESSION: There is either a right-sided skinfold or pneumothorax. A skinfold is favored given the increased density of the pleural line and the extension of lung markings beyond this line. The patient will be in the department for an ultrasound of his kidneys. A follow-up radiograph will be obtained after that ultrasound. The right pleural effusion has resolved. Mild calcification of the aortic arch. The cardiac silhouette is normal in size. Mild pulmonary venous congestion. No acute bony abnormality. Signed: Parth Tanner [facility] Verified Date/Time: 09/06/2018 16:35:40 Reading Location: [address] Ultrasound Reading Room PROTHROMBIN [id number] 10:30:00 Test Item Value Reference Range Interpretation Comments PROTIME (BEAKER) (test code = 14.4 seconds 11.7-14.7 759) INR (BEAKER) (test code = 370) 1.1 <=5.9 RECOMMENDED COUMADIN/WARFARIN INR THERAPY RANGESSTANDARD DOSE: 2.0 - 3.0 Includes: PROPHYLAXIS forvenous thrombosis, systemic embolization; TREATMENT for venous thrombosis and/or pulmonary embolus.HIGH RISK: Target INR is 2.5-3.5 for patients with mechanical heart valves.[id number] 06:23:00 Test Item Value Reference Range Interpretation Comments MAGNESIUM (BEAKER) (test code = 1.7 mg/dL 1.6-2.6 627) BASIC METABOLIC [id number] 06:23:00 Test Item Value Reference Range Interpretation Comments SODIUM (BEAKER) 127 meq/L 136-145 L (test code = 381) POTASSIUM (BEAKER) 4.1 meq/L 3.5-5.1 (test code = 379) CHLORIDE (BEAKER) 101 meq/L 98-107 (test code = 382) CO2 (BEAKER) (test 21 meq/L 22-29 L code = 355) BLOOD UREA NITROGEN 28 mg/dL 7-21 H (BEAKER) (test code = 354) CREATININE (BEAKER) 1.71 mg/dL 0.57-1.25 H (test code = 358) GLUCOSE RANDOM 119 mg/dL 70-105 H (BEAKER) (test code = 652) CALCIUM (BEAKER) 8.2 mg/dL 8.4-10.2 L (test code = 697) EGFR (BEAKER) (test 38 mL/min/1.73 ESTIMA MARVIN GFR IS code = 1092) sq m NOT ACCURATE CREATININE CLEARANCE IN PREDICTING GLOMERULAR FILTRATION RATE . ESTIMATED GFR I S NOT APPLICABLE FOR DIALYSIS PATIEN TS. CBC W/PLT COUNT & AUTO [id number] 05:01:00 Test Item Value Reference Range Interpretation Comments WHITE BLOOD CELL COUNT (BEAKER) 10.1 K/ L 3.5-10.5 (test code = 775) RED BLOOD CELL COUNT (BEAKER) 3.33 M/ L 4.63-6.08 L (test code = 761) HEMOGLOBIN (BEAKER) (test code = 10.2 GM/DL 13.7-17.5 L 410) HEMATOCRIT (BEAKER) (test code = 30.7 % 40.1-51.0 L 411) MEAN CORPUSCULAR VOLUME (BEAKER) 92.2 fL 79.0-92.2 (test code = 753) MEAN CORPUSCULAR HEMOGLOBIN 30.6 pg 25.7-32.2 (BEAKER) (test code = 751) MEAN CORPUSCULAR HEMOGLOBIN CONC 33.2 GM/DL 32.3-36.5 (BEAKER) (test code = 752) RED CELL DISTRIBUTION WIDTH 13.2 % 11.6-14.4 (BEAKER) (test code = 412) PLATELET COUNT (BEAKER) (test 211 K/CU MM 150-450 code = 756) MEAN PLATELET VOLUME (BEAKER) 10.1 fL 9.4-12.4 (test code = 754) NUCLEATED RED BLOOD CELLS 0 /100 WBC 0-0 (BEAKER) (test code = 413) NEUTROPHILS RELATIVE PERCENT 68 % (BEAKER) (test code = 429) LYMPHOCYTES RELATIVE PERCENT 11 % (BEAKER) (test code = 430) MONOCYTES RELATIVE PERCENT 13 % (BEAKER) (test code = 431) EOSINOPHILS RELATIVE PERCENT 6 % (BEAKER) (test code = 432) BASOPHILS RELATIVE PERCENT 1 % (BEAKER) (test code = 437) NEUTROPHILS ABSOLUTE COUNT 6.90 K/ L 1.78-5.38 H (BEAKER) (test code = 670) LYMPHOCYTES ABSOLUTE COUNT 1.12 K/ L 1.32-3.57 L (BEAKER) (test code = 414) MONOCYTES ABSOLUTE COUNT (BEAKER) 1.29 K/ L 0.30-0.82 H (test code = 415) EOSINOPHILS ABSOLUTE COUNT 0.63 K/ L 0.04-0.54 H (BEAKER) (test code = 416) BASOPHILS ABSOLUTE COUNT (BEAKER) 0.09 K/ L 0.01-0.08 H (test code = 417) IMMATURE GRANULOCYTES-RELATIVE 1 % 0-1 PERCENT (BEAKER) (test code = 2801) [id number] 08:33:00 Test Item Value Reference Range Interpretation Comments MAGNESIUM (BEAKER) (test code = 1.8 mg/dL 1.6-2.6 627) BASIC METABOLIC [id number] 08:33:00 Test Item Value Reference Range Interpretation Comments SODIUM (BEAKER) 129 meq/L 136-145 L (test code = 381) POTASSIUM (BEAKER) 4.1 meq/L 3.5-5.1 (test code = 379) CHLORIDE (BEAKER) 101 meq/L 98-107 (test code = 382) CO2 (BEAKER) (test 20 meq/L 22-29 L code = 355) BLOOD UREA NITROGEN 28 mg/dL 7-21 H (BEAKER) (test code = 354) CREATININE (BEAKER) 1.67 mg/dL 0.57-1.25 H (test code = 358) GLUCOSE RANDOM 103 mg/dL 70-105 (BEAKER) (test code = 652) CALCIUM (BEAKER) 8.5 mg/dL 8.4-10.2 (test code = 697) EGFR (BEAKER) (test 39 mL/min/1.73 ESTIMA MARVIN GFR IS code = 1092) sq m NOT ACCURATE CREATININE CLEARANCE IN PREDICTING GLOMERULAR FILTRATION RATE . ESTIMATED GFR I S NOT APPLICABLE FOR DIALYSIS PATIEN TS. CBC W/PLT COUNT & AUTO [id number] 05:30:00 Test Item Value Reference Range Interpretation Comments WHITE BLOOD CELL COUNT (BEAKER) 9.4 K/ L 3.5-10.5 (test code = 775) RED BLOOD CELL COUNT (BEAKER) 3.64 M/ L 4.63-6.08 L (test code = 761) HEMOGLOBIN (BEAKER) (test code = 11.4 GM/DL 13.7-17.5 L 410) HEMATOCRIT (BEAKER) (test code = 33.1 % 40.1-51.0 L 411) MEAN CORPUSCULAR VOLUME (BEAKER) 90.9 fL 79.0-92.2 (test code = 753) MEAN CORPUSCULAR HEMOGLOBIN 31.3 pg 25.7-32.2 (BEAKER) (test code = 751) MEAN CORPUSCULAR HEMOGLOBIN CONC 34.4 GM/DL 32.3-36.5 (BEAKER) (test code = 752) RED CELL DISTRIBUTION WIDTH 13.2 % 11.6-14.4 (BEAKER) (test code = 412) PLATELET COUNT (BEAKER) (test 208 K/CU MM 150-450 code = 756) MEAN PLATELET VOLUME (BEAKER) 10.5 fL 9.4-12.4 (test code = 754) NUCLEATED RED BLOOD CELLS 0 /100 WBC 0-0 (BEAKER) (test code = 413) NEUTROPHILS RELATIVE PERCENT 68 % (BEAKER) (test code = 429) LYMPHOCYTES RELATIVE PERCENT 12 % (BEAKER) (test code = 430) MONOCYTES RELATIVE PERCENT 13 % (BEAKER) (test code = 431) EOSINOPHILS RELATIVE PERCENT 6 % (BEAKER) (test code = 432) BASOPHILS RELATIVE PERCENT 1 % (BEAKER) (test code = 437) NEUTROPHILS ABSOLUTE COUNT 6.38 K/ L 1.78-5.38 H (BEAKER) (test code = 670) LYMPHOCYTES ABSOLUTE COUNT 1.13 K/ L 1.32-3.57 L (BEAKER) (test code = 414) MONOCYTES ABSOLUTE COUNT (BEAKER) 1.19 K/ L 0.30-0.82 H (test code = 415) EOSINOPHILS ABSOLUTE COUNT 0.58 K/ L 0.04-0.54 H (BEAKER) (test code = 416) BASOPHILS ABSOLUTE COUNT (BEAKER) 0.07 K/ L 0.01-0.08 (test code = 417) IMMATURE GRANULOCYTES-RELATIVE 0 % 0-1 PERCENT (BEAKER) (test code = 2801) POCT-GLUCOSE [id number] 21:27:00 Test Item Value Reference Range Interpretation Comments POC-GLUCOSE METER 124 mg/dL 70-110 H TESTED AT [place] [address] ([facility] (test code = [facility] 1538) [address] POCT-GLUCOSE [id number] 17:49:00 Test Item Value Reference Range Interpretation Comments POC-GLUCOSE METER 111 mg/dL 70-110 H TESTED AT [place] [address] ([facility]) (test code = [facility] 1538) [address] POCT-GLUCOSE [id number] 12:53:00 Test Item Value Reference Range Interpretation Comments POC-GLUCOSE METER 150 mg/dL 70-110 H TESTED AT [place] [address] ([facility]) (test code = [facility] 1538) [address] [id number] 09:38:00 Test Item Value Reference Range Interpretation Comments MAGNESIUM (BEAKER) (test code = 1.8 mg/dL 1.6-2.6 627) BASIC METABOLIC [id number] 09:38:00 Test Item Value Reference Range Interpretation Comments SODIUM (BEAKER) 127 meq/L 136-145 L (test code = 381) POTASSIUM (BEAKER) 4.1 meq/L 3.5-5.1 (test code = 379) CHLORIDE (BEAKER) 100 meq/L 98-107 (test code = 382) CO2 (BEAKER) (test 19 meq/L 22-29 L code = 355) BLOOD UREA NITROGEN 35 mg/dL 7-21 H (BEAKER) (test code = 354) CREATININE (BEAKER) 1.80 mg/dL 0.57-1.25 H (test code = 358) GLUCOSE RANDOM 115 mg/dL 70-105 H (BEAKER) (test code = 652) CALCIUM (BEAKER) 8.5 mg/dL 8.4-10.2 (test code = 697) EGFR (BEAKER) (test 36 mL/min/1.73 ESTIMA MARVIN GFR IS code = 1092) sq m NOT ACCURATE CREATININE CLEARANCE IN PREDICTING GLOMERULAR FILTRATION RATE . ESTIMATED GFR I S NOT APPLICABLE FOR DIALYSIS PATIEN TS. POCT-GLUCOSE [id number] 08:29:00 Test Item Value Reference Range Interpretation Comments POC-GLUCOSE METER 107 mg/dL 70-110 TESTED AT [facility] 67[facility] (BEAKER) (test code = [place] 1538) [address] CBC W/PLT COUNT & AUTO [id number] 04:36:00 Test Item Value Reference Range Interpretation Comments WHITE BLOOD CELL COUNT (BEAKER) 9.8 K/ L 3.5-10.5 (test code = 775) RED BLOOD CELL COUNT (BEAKER) 3.43 M/ L 4.63-6.08 L (test code = 761) HEMOGLOBIN (BEAKER) (test code = 10.6 GM/DL 13.7-17.5 L 410) HEMATOCRIT (BEAKER) (test code = 31.6 % 40.1-51.0 L 411) MEAN CORPUSCULAR VOLUME (BEAKER) 92.1 fL 79.0-92.2 (test code = 753) MEAN CORPUSCULAR HEMOGLOBIN 30.9 pg 25.7-32.2 (BEAKER) (test code = 751) MEAN CORPUSCULAR HEMOGLOBIN CONC 33.5 GM/DL 32.3-36.5 (BEAKER) (test code = 752) RED CELL DISTRIBUTION WIDTH 13.1 % 11.6-14.4 (BEAKER) (test code = 412) PLATELET COUNT (BEAKER) (test 176 K/CU MM 150-450 code = 756) MEAN PLATELET VOLUME (BEAKER) 10.8 fL 9.4-12.4 (test code = 754) NUCLEATED RED BLOOD CELLS 0 /100 WBC 0-0 (BEAKER) (test code = 413) NEUTROPHILS RELATIVE PERCENT 72 % (BEAKER) (test code = 429) LYMPHOCYTES RELATIVE PERCENT 10 % (BEAKER) (test code = 430) MONOCYTES RELATIVE PERCENT 12 % (BEAKER) (test code = 431) EOSINOPHILS RELATIVE PERCENT 6 % (BEAKER) (test code = 432) BASOPHILS RELATIVE PERCENT 1 % (BEAKER) (test code = 437) NEUTROPHILS ABSOLUTE COUNT 7.01 K/ L 1.78-5.38 H (BEAKER) (test code = 670) LYMPHOCYTES ABSOLUTE COUNT 0.95 K/ L 1.32-3.57 L (BEAKER) (test code = 414) MONOCYTES ABSOLUTE COUNT (BEAKER) 1.12 K/ L 0.30-0.82 H (test code = 415) EOSINOPHILS ABSOLUTE COUNT 0.59 K/ L 0.04-0.54 H (BEAKER) (test code = 416) BASOPHILS ABSOLUTE COUNT (BEAKER) 0.07 K/ L 0.01-0.08 (test code = 417) IMMATURE GRANULOCYTES-RELATIVE 0 % 0-1 PERCENT (BEAKER) (test code = 2801) RAD, CHEST, 2 [id number] 22:22:00Reason for exam:->sobShould this be performed at the bedside?->NoFINAL REPORT Examination: Two view Chest X-ray. CLINICAL HISTORY: Shortness of breath COMPARISON: 09/02/2018 The cardiac silhouette is within normal limits for size. There is atherosclerotic calcification of the aorta. Small bilateral pleural effusions are present, right greater than left. Subjacent opacity in the right lung may reflect atelectasis but pneumonitis should be excluded clinically. There is mild central pulmonary vascular engorgement without evidence of overt pulmonary edema. There is no pneumothorax or acute bony abnormality. Signed: Ricci Daniel Verified Date/Time: 09/03/2018 22:22:15 Reading Location: [address] Reading Room POCT-GLUCOSE [id number] 21:33:00 Test Item Value Reference Range Interpretation Comments POC-GLUCOSE METER 163 mg/dL 70-110 H TESTED AT [facility] ([facility]) (test code = [place] 1538) [address] POCT-GLUCOSE [id number] 18:08:00 Test Item Value Reference Range Interpretation Comments POC-GLUCOSE METER 202 mg/dL 70-110 H TESTED AT [facility] 67[facility] ([facility]) (test code = [place] 1538) [address] [id number] 17:40:00 Test Item Value Reference Range Interpretation Comments PROTIME (BEAKER) (test code = 13.9 seconds 11.7-14.7 759) INR (BEAKER) (test code = 370) 1.0 <=5.9 PARTIAL THROMBOPLASTIN TIME 25.4 seconds 22.5-36.0 (BEAKER) (test code = 760) RECOMMENDED COUMADIN/WARFARIN INR THERAPY RANGESSTANDARD DOSE: 2.0 - 3.0 Includes: PROPHYLAXIS forvenous thrombosis, systemic embolization; TREATMENT for venous thrombosis and/or pulmonary embolus.HIGH RISK: Target INR is 2.5-3.5 for patients with mechanical heart valves.PROTHROMBIN [id number] 17:39:00 Test Item Value Reference Range Interpretation Comments PROTIME (BEAKER) (test code = 13.9 seconds 11.7-14.7 759) INR (BEAKER) (test code = 370) 1.0 <=5.9 RECOMMENDED COUMADIN/WARFARIN INR THERAPY RANGESSTANDARD DOSE: 2.0 - 3.0 Includes: PROPHYLAXIS forvenous thrombosis, systemic embolization; TREATMENT for venous thrombosis and/or pulmonary embolus.HIGH RISK: Target INR is 2.5-3.5 for patients with mechanical heart valves.POCT-GLUCOSE [id number] 14:56:00 Test Item Value Reference Range Interpretation Comments POC-GLUCOSE METER 110 mg/dL 70-110 TESTED AT [place] [address] ([facility]) (test code = [facility] 1538) [address] POCT-GLUCOSE [id number] 07:48:00 Test Item Value Reference Range Interpretation Comments POC-GLUCOSE METER 100 mg/dL 70-110 TESTED AT [place] [address] ([facility]) (test code = MARLOJOSH Strange [facility] 1538) [address] [id number] 05:26:00 Test Item Value Reference Range Interpretation Comments MAGNESIUM (BEAKER) (test code = 1.9 mg/dL 1.6-2.6 627) BASIC METABOLIC [id number] 05:26:00 Test Item Value Reference Range Interpretation Comments SODIUM (BEAKER) 128 meq/L 136-145 L (test code = 381) POTASSIUM (BEAKER) 4.1 meq/L 3.5-5.1 (test code = 379) CHLORIDE (BEAKER) 101 meq/L 98-107 (test code = 382) CO2 (BEAKER) (test 20 meq/L 22-29 L code = 355) BLOOD UREA NITROGEN 37 mg/dL 7-21 H (BEAKER) (test code = 354) CREATININE (BEAKER) 1.87 mg/dL 0.57-1.25 H (test code = 358) GLUCOSE RANDOM 121 mg/dL 70-105 H (BEAKER) (test code = 652) CALCIUM (BEAKER) 8.5 mg/dL 8.4-10.2 (test code = 697) EGFR (BEAKER) (test 34 mL/min/1.73 ESTIMA MARVIN GFR IS code = 1092) sq m NOT ACCURATE CREATININE CLEARANCE IN PREDICTING GLOMERULAR FILTRATION RATE . ESTIMATED GFR I S NOT APPLICABLE FOR DIALYSIS PATIEN TS. [id number] 05:24:00 Test Item Value Reference Range Interpretation Comments CORTISOL, TOTAL (BEAKER) (test 19.5 ug/dL 3.7-19.4 H code = 0175) CBC W/PLT COUNT & AUTO [id number] 04:46:00 Test Item Value Reference Range Interpretation Comments WHITE BLOOD CELL COUNT (BEAKER) 7.7 K/ L 3.5-10.5 (test code = 775) RED BLOOD CELL COUNT (BEAKER) 3.40 M/ L 4.63-6.08 L (test code = 761) HEMOGLOBIN (BEAKER) (test code = 10.5 GM/DL 13.7-17.5 L 410) HEMATOCRIT (BEAKER) (test code = 31.0 % 40.1-51.0 L 411) MEAN CORPUSCULAR VOLUME (BEAKER) 91.2 fL 79.0-92.2 (test code = 753) MEAN CORPUSCULAR HEMOGLOBIN 30.9 pg 25.7-32.2 (BEAKER) (test code = 751) MEAN CORPUSCULAR HEMOGLOBIN CONC 33.9 GM/DL 32.3-36.5 (BEAKER) (test code = 752) RED CELL DISTRIBUTION WIDTH 12.9 % 11.6-14.4 (BEAKER) (test code = 412) PLATELET COUNT (BEAKER) (test 146 K/CU MM 150-450 L code = 756) MEAN PLATELET VOLUME (BEAKER) 10.7 fL 9.4-12.4 (test code = 754) NUCLEATED RED BLOOD CELLS 0 /100 WBC 0-0 (BEAKER) (test code = 413) NEUTROPHILS RELATIVE PERCENT 71 % (BEAKER) (test code = 429) LYMPHOCYTES RELATIVE PERCENT 10 % (BEAKER) (test code = 430) MONOCYTES RELATIVE PERCENT 13 % (BEAKER) (test code = 431) EOSINOPHILS RELATIVE PERCENT 5 % (BEAKER) (test code = 432) BASOPHILS RELATIVE PERCENT 1 % (BEAKER) (test code = 437) NEUTROPHILS ABSOLUTE COUNT 5.45 K/ L 1.78-5.38 H (BEAKER) (test code = 670) LYMPHOCYTES ABSOLUTE COUNT 0.79 K/ L 1.32-3.57 L (BEAKER) (test code = 414) MONOCYTES ABSOLUTE COUNT (BEAKER) 0.96 K/ L 0.30-0.82 H (test code = 415) EOSINOPHILS ABSOLUTE COUNT 0.40 K/ L 0.04-0.54 (BEAKER) (test code = 416) BASOPHILS ABSOLUTE COUNT (BEAKER) 0.06 K/ L 0.01-0.08 (test code = 417) IMMATURE GRANULOCYTES-RELATIVE 1 % 0-1 PERCENT (BEAKER) (test code = 2801) RAD, CHEST, PA OR AP, 1 [id number] 00:40:00Reason for exam:->r/o infiltratesFINAL REPORT History: Shortness of breath. Comparison: None. Findings: A single view of the chest is submitted. The cardiac silhouette is at the upper limits of normal for size.There is atherosclerotic calcification of the aorta. Hazy opacification of the right mid and lower lung suggests a layering effusion with subjacent atelectasis. Superimposed pneumonitis should be excluded clinically. There is no pneumothorax, evidence of overt pulmonary edema or acute bony abnormality. Signed: Ricci Daniel MDReport Verified Date/Time: 09/03/2018 00:40:23 Reading Location: [address] Reading Room POCT-GLUCOSE [id number] 23:13:00 Test Item Value Reference Range Interpretation Comments POC-GLUCOSE METER 124 mg/dL 70-110 H TESTED AT [facility] 67[facility] ([facility]) (test code = [place] 1538) [address] SODIUM, RANDOM [id number] 18:20:00 Test Item Value Reference Range Interpretation Comments SODIUM URINE (BEAKER) (test code = 23 meq/L 243) Reference Range: No NormalsBASIC METABOLIC [id number] 17:50:00 Test Item Value Reference Range Interpretation Comments SODIUM (BEAKER) 125 meq/L 136-145 L (test code = 381) POTASSIUM (BEAKER) 4.3 meq/L 3.5-5.1 (test code = 379) CHLORIDE (BEAKER) 97 meq/L 98-107 L (test code = 382) CO2 (BEAKER) (test 18 meq/L 22-29 L code = 355) BLOOD UREA NITROGEN 40 mg/dL 7-21 H (BEAKER) (test code = 354) CREATININE (BEAKER) 2.04 mg/dL 0.57-1.25 H (test code = 358) GLUCOSE RANDOM 110 mg/dL 70-105 H (BEAKER) (test code = 652) CALCIUM (BEAKER) 8.7 mg/dL 8.4-10.2 (test code = 697) EGFR (BEAKER) (test 31 mL/min/1.73 ESTIMA MARVIN GFR IS code = 1092) sq m NOT ACCURATE CREATININE CLEARANCE IN PREDICTING GLOMERULAR FILTRATION RATE . ESTIMATED GFR I S NOT APPLICABLE FOR DIALYSIS PATIEN TS. TISSUE [id number] 16:34:00Surgical Pathology Report Case: [id number] Authorizing Provider: Palomo Arguelles, Collected: 08/30/2018 0859 Ordering Location: [facility] Received: 08/30/2018 1024 [employer]OPER[employer] SERVICES Pathologist: Gibson Tinoco MD Specimen: Plaque, Left carotid artery plaque ARTERY, LEFT CAROTID, ENDARTERECTOMY:CALCIFIC ATHEROSCLEROTIC PLAQUE Signing Pathologist Direct Phone Line: [phone] signed by Gibson Tinoco MD on 09/02/2018 at 4:34 [id number]; [id number] stenosisleft sideLeft carotid artery plaqueThe specimen is received in a formalin-filled container and labeled with the patient's information labeled "left carotid artery plaque" and consists of a tubular-shaped segment of lincoln calcified tissue measuring 3 cm in length x 0.6 cm in diameter. It Support Specialist sections are submitted A1 for decalcification. CG/pl Performed TSH/FREE T4 IF [id number] 13:02:00 Test Item Value Reference Range Interpretation Comments THYROID STIMULATING HORMONE 4.43 uIU/mL 0.35-4.94 (BEAKER) (test code = 772) POCT-GLUCOSE [id number] 08:14:00 Test Item Value Reference Range Interpretation Comments POC-GLUCOSE METER 129 mg/dL 70-110 H TESTED AT [facility] 6720 (BEAKER) (test code = [place] 1538) [address] BASIC METABOLIC [id number] 05:21:00 Test Item Value Reference Range Interpretation Comments SODIUM (BEAKER) 122 meq/L 136-145 L (test code = 381) POTASSIUM (BEAKER) 4.4 meq/L 3.5-5.1 (test code = 379) CHLORIDE (BEAKER) 96 meq/L 98-107 L (test code = 382) CO2 (BEAKER) (test 18 meq/L 22-29 L code = 355) BLOOD UREA NITROGEN 40 mg/dL 7-21 H (BEAKER) (test code = 354) CREATININE (BEAKER) 2.20 mg/dL 0.57-1.25 H (test code = 358) GLUCOSE RANDOM 123 mg/dL 70-105 H (BEAKER) (test code = 652) CALCIUM (BEAKER) 8.5 mg/dL 8.4-10.2 (test code = 697) EGFR (BEAKER) (test 29 mL/min/1.73 ESTIMA MARVIN GFR IS code = 1092) sq m NOT ACCURATE CREATININE CLEARANCE IN PREDICTING GLOMERULAR FILTRATION RATE . ESTIMATED GFR I S NOT APPLICABLE FOR DIALYSIS PATIEN TS. [id number] 05:18:00 Test Item Value Reference Range Interpretation Comments MAGNESIUM (BEAKER) (test code = 1.8 mg/dL 1.6-2.6 627) CBC W/PLT COUNT & AUTO [id number] 04:58:00 Test Item Value Reference Range Interpretation Comments WHITE BLOOD CELL COUNT (BEAKER) 7.7 K/ L 3.5-10.5 (test code = 775) RED BLOOD CELL COUNT (BEAKER) 3.29 M/ L 4.63-6.08 L (test code = 761) HEMOGLOBIN (BEAKER) (test code = 10.3 GM/DL 13.7-17.5 L 410) HEMATOCRIT (BEAKER) (test code = 30.4 % 40.1-51.0 L 411) MEAN CORPUSCULAR VOLUME (BEAKER) 92.4 fL 79.0-92.2 H (test code = 753) MEAN CORPUSCULAR HEMOGLOBIN 31.3 pg 25.7-32.2 (BEAKER) (test code = 751) MEAN CORPUSCULAR HEMOGLOBIN CONC 33.9 GM/DL 32.3-36.5 (BEAKER) (test code = 752) RED CELL DISTRIBUTION WIDTH 13.0 % 11.6-14.4 (BEAKER) (test code = 412) PLATELET COUNT (BEAKER) (test 137 K/CU MM 150-450 L code = 756) MEAN PLATELET VOLUME (BEAKER) 10.8 fL 9.4-12.4 (test code = 754) NUCLEATED RED BLOOD CELLS 0 /100 WBC 0-0 (BEAKER) (test code = 413) NEUTROPHILS RELATIVE PERCENT 72 % (BEAKER) (test code = 429) LYMPHOCYTES RELATIVE PERCENT 11 % (BEAKER) (test code = 430) MONOCYTES RELATIVE PERCENT 12 % (BEAKER) (test code = 431) EOSINOPHILS RELATIVE PERCENT 4 % (BEAKER) (test code = 432) BASOPHILS RELATIVE PERCENT 1 % (BEAKER) (test code = 437) NEUTROPHILS ABSOLUTE COUNT 5.58 K/ L 1.78-5.38 H (BEAKER) (test code = 670) LYMPHOCYTES ABSOLUTE COUNT 0.86 K/ L 1.32-3.57 L (BEAKER) (test code = 414) MONOCYTES ABSOLUTE COUNT (BEAKER) 0.89 K/ L 0.30-0.82 H (test code = 415) EOSINOPHILS ABSOLUTE COUNT 0.33 K/ L 0.04-0.54 (BEAKER) (test code = 416) BASOPHILS ABSOLUTE COUNT (BEAKER) 0.04 K/ L 0.01-0.08 (test code = 417) IMMATURE GRANULOCYTES-RELATIVE 0 % 0-1 PERCENT (BEAKER) (test code = 2801) POCT-GLUCOSE [id number] 21:12:00 Test Item Value Reference Range Interpretation Comments POC-GLUCOSE METER 156 mg/dL 70-110 H TESTED AT [facility] 6720 (BEAKER) (test code = [facility] Alie [facility] 1538) [address] POCT-GLUCOSE [id number] 18:50:00 Test Item Value Reference Range Interpretation Comments POC-GLUCOSE METER 154 mg/dL 70-110 H TESTED AT [place] [address] ([facility]) (test code = [facility] 1538) [address] POCT-GLUCOSE [id number] 12:31:00 Test Item Value Reference Range Interpretation Comments POC-GLUCOSE METER 152 mg/dL 70-110 H TESTED AT [place] [address] ([facility] (test code = [facility] 1538) [address] CALCIUM, [id number] 06:47:00 Test Item Value Reference Range Interpretation Comments CALCIUM IONIZED (BEAKER) (test 1.04 mmol/L 1.12-1.27 L code = 698) PH, BLOOD (AKER) (test code = 7.33 1810) CBC W/PLT COUNT & AUTO [id number] 06:05:00 Test Item Value Reference Range Interpretation Comments WHITE BLOOD CELL COUNT (BEAKER) 9.7 K/ L 3.5-10.5 (test code = 775) RED BLOOD CELL COUNT (BEAKER) 3.34 M/ L 4.63-6.08 L (test code = 761) HEMOGLOBIN (BEAKER) (test code = 10.6 GM/DL 13.7-17.5 L 410) HEMATOCRIT (BEAKER) (test code = 31.1 % 40.1-51.0 L 411) MEAN CORPUSCULAR VOLUME (BEAKER) 93.1 fL 79.0-92.2 H (test code = 753) MEAN CORPUSCULAR HEMOGLOBIN 31.7 pg 25.7-32.2 (BEAKER) (test code = 751) MEAN CORPUSCULAR HEMOGLOBIN CONC 34.1 GM/DL 32.3-36.5 (BEAKER) (test code = 752) RED CELL DISTRIBUTION WIDTH 13.0 % 11.6-14.4 (BEAKER) (test code = 412) PLATELET COUNT (BEAKER) (test 148 K/CU MM 150-450 L code = 756) MEAN PLATELET VOLUME (BEAKER) 10.6 fL 9.4-12.4 (test code = 754) NUCLEATED RED BLOOD CELLS 0 /100 WBC 0-0 (BEAKER) (test code = 413) NEUTROPHILS RELATIVE PERCENT 87 % (BEAKER) (test code = 429) LYMPHOCYTES RELATIVE PERCENT 4 % (BEAKER) (test code = 430) MONOCYTES RELATIVE PERCENT 8 % (BEAKER) (test code = 431) EOSINOPHILS RELATIVE PERCENT 1 % (BEAKER) (test code = 432) BASOPHILS RELATIVE PERCENT 0 % (BEAKER) (test code = 437) NEUTROPHILS ABSOLUTE COUNT 8.48 K/ L 1.78-5.38 H (BEAKER) (test code = 670) LYMPHOCYTES ABSOLUTE COUNT 0.36 K/ L 1.32-3.57 L (BEAKER) (test code = 414) MONOCYTES ABSOLUTE COUNT (BEAKER) 0.73 K/ L 0.30-0.82 (test code = 415) EOSINOPHILS ABSOLUTE COUNT 0.08 K/ L 0.04-0.54 (BEAKER) (test code = 416) BASOPHILS ABSOLUTE COUNT (BEAKER) 0.03 K/ L 0.01-0.08 (test code = 417) IMMATURE GRANULOCYTES-RELATIVE 0 % 0-1 PERCENT (BEAKER) (test code = 2801) [id number] 06:03:00 Test Item Value Reference Range Interpretation Comments PHOSPHORUS (BEAKER) (test code = 4.0 mg/dL 2.3-4.7 604) [id number] 06:03:00 Test Item Value Reference Range Interpretation Comments MAGNESIUM (BEAKER) (test code = 2.0 mg/dL 1.6-2.6 627) BASIC METABOLIC [id number] 06:03:00 Test Item Value Reference Range Interpretation Comments SODIUM (BEAKER) 124 meq/L 136-145 L (test code = 381) POTASSIUM (BEAKER) 5.0 meq/L 3.5-5.1 (test code = 379) CHLORIDE (BEAKER) 98 meq/L 98-107 (test code = 382) CO2 (BEAKER) (test 19 meq/L 22-29 L code = 355) BLOOD UREA NITROGEN 35 mg/dL 7-21 H (BEAKER) (test code = 354) CREATININE (BEAKER) 2.19 mg/dL 0.57-1.25 H (test code = 358) GLUCOSE RANDOM 134 mg/dL 70-105 H (BEAKER) (test code = 652) CALCIUM (BEAKER) 8.5 mg/dL 8.4-10.2 (test code = 697) EGFR (BEAKER) (test 29 mL/min/1.73 ESTIMA MRAVIN GFR IS code = 1092) sq m NOT ACCURATE CREATININE CLEARANCE IN PREDICTING GLOMERULAR FILTRATION RATE . ESTIMATED GFR I S NOT APPLICABLE FOR DIALYSIS PATIEN TS. POCT-GLUCOSE [id number] 21:11:00 Test Item Value Reference Range Interpretation Comments POC-GLUCOSE METER 128 mg/dL 70-110 H TESTED AT [facility] 67 (BEAKER) (test code = [facility] 1538) [id number] POCT-GLUCOSE [id number] 20:59:00 Test Item Value Reference Range Interpretation Comments POC-GLUCOSE METER 135 mg/dL 70-110 H TESTED AT [place] [address] [facility] (test code = [facility] 1538) [id number] CALCIUM, [id number] 17:01:00 Test Item Value Reference Range Interpretation Comments CALCIUM IONIZED (BEAKER) (test 1.11 mmol/L 1.12-1.27 L code = 698) PH, BLOOD (BEAKER) (test code = 7.38 1810) [id number] 16:29:00 Test Item Value Reference Range Interpretation Comments MAGNESIUM (BEAKER) 2.6 mg/dL 1.6-2.6 Specimen markedly (test code = 627) hemolyzed [id number] 16:29:00 Test Item Value Reference Range Interpretation Comments POTASSIUM (BEAKER) 5.5 meq/L 3.5-5.1 H Specimen markedly (test code = 379) hemolyzed [id number] 16:29:00 Test Item Value Reference Range Interpretation Comments SODIUM (BEAKER) (test code = 381) 125 meq/L 136-145 L BASIC METABOLIC [id number] 14:09:00 Test Item Value Reference Range Interpretation Comments SODIUM (BEAKER) 123 meq/L 136-145 L (test code = 381) POTASSIUM (BEAKER) 4.9 meq/L 3.5-5.1 (test code = 379) CHLORIDE (BEAKER) 99 meq/L 98-107 (test code = 382) CO2 (BEAKER) (test 17 meq/L 22-29 L code = 355) BLOOD UREA NITROGEN 34 mg/dL 7-21 H (BEAKER) (test code = 354) CREATININE (BEAKER) 2.14 mg/dL 0.57-1.25 H (test code = 358) GLUCOSE RANDOM 145 mg/dL 70-105 H (BEAKER) (test code = 652) CALCIUM (BEAKER) 8.2 mg/dL 8.4-10.2 L (test code = 697) EGFR (BEAKER) (test 30 mL/min/1.73 ESTIMA MARVIN GFR IS code = 1092) sq m NOT ACCURATE CREATININE CLEARANCE IN PREDICTING GLOMERULAR FILTRATION RATE . ESTIMATED GFR I S NOT APPLICABLE FOR DIALYSIS PATIEN TS. POCT-GLUCOSE [id number] 10:58:00 Test Item Value Reference Range Interpretation Comments POC-GLUCOSE METER 144 mg/dL 70-110 H TESTED AT [facility] 6720 (BEAKER) (test code = [place] 1538) [id number] 04:23:00 Test Item Value Reference Range Interpretation Comments PHOSPHORUS (BEAKER) (test code = 4.5 mg/dL 2.3-4.7 604) [id number] 04:23:00 Test Item Value Reference Range Interpretation Comments MAGNESIUM (BEAKER) (test code = 1.8 mg/dL 1.6-2.6 627) BASIC METABOLIC [id number] 04:23:00 Test Item Value Reference Range Interpretation Comments SODIUM (BEAKER) 127 meq/L 136-145 L (test code = 381) POTASSIUM (BEAKER) 4.9 meq/L 3.5-5.1 (test code = 379) CHLORIDE (BEAKER) 101 meq/L 98-107 (test code = 382) CO2 (BEAKER) (test 16 meq/L 22-29 L code = 355) BLOOD UREA NITROGEN 30 mg/dL 7-21 H (BEAKER) (test code = 354) CREATININE (BEAKER) 2.12 mg/dL 0.57-1.25 H (test code = 358) GLUCOSE RANDOM 173 mg/dL 70-105 H (BEAKER) (test code = 652) CALCIUM (BEAKER) 8.5 mg/dL 8.4-10.2 (test code = 697) EGFR (BEAKER) (test 30 mL/min/1.73 ESTIMA MARVIN GFR IS code = 1092) sq m NOT ACCURATE CREATININE CLEARANCE IN PREDICTING GLOMERULAR FILTRATION RATE . ESTIMATED GFR I S NOT APPLICABLE FOR DIALYSIS PATIEN TS. CALCIUM, [id number] 04:22:00 Test Item Value Reference Range Interpretation Comments CALCIUM IONIZED (BEAKER) (test 1.06 mmol/L 1.12-1.27 L code = 698) PH, BLOOD (BEAKER) (test code = 7.39 1810) BLOOD GAS, [id number] 04:18:00 Test Item Value Reference Range Interpretation Comments PH ARTERIAL (BEAKER) (test code = 7.41 7.35-7.45 383) PCO2 ARTERIAL (BEAKER) (test code 30 mmHg 35-45 L = 384) PO2 ARTERIAL (BEAKER) (test code 85 mmHg 80-90 = 385) O2 SATURATION ARTERIAL (BEAKER) 97.0 % 96.0-97.0 (test code = 386) HCO3 ARTERIAL (BEAKER) (test code 18 mmol/L 21-29 L = 388) BASE EXCESS ARTERIAL (BEAKER) -5.6 mmol/L -2.0-3.0 L (test code = 387) PATIENT TEMPERATURE (BEAKER) 35.9 C (test code = 1818) FIO2 (BEAKER) (test code = 1819) 24.0 % SODIUM NA-STAT [id number] 04:18:00 Test Item Value Reference Range Interpretation Comments SODIUM (BEAKER) (test code = 381) 123 meq/L 135-148 L GLUCOSE-STAT [id number] 04:18:00 Test Item Value Reference Range Interpretation Comments GLUCOSE RANDOM (BEAKER) (test code 163 mg/dL 70-110 H = 652) HGB/HCT (H&H) - STAT [id number] 04:18:00 Test Item Value Reference Range Interpretation Comments HEMOGLOBIN (BEAKER) (test code = 10.9 g/dL 13.0-16.8 L 410) HEMATOCRIT (BEAKER) (test code = 32.0 % 40.0-50.0 L 411) POTASSIUM-STAT [id number] 04:12:00 Test Item Value Reference Range Interpretation Comments POTASSIUM (BEAKER) (test code = 4.7 meq/L 3.6-5.5 379) CBC W/PLT COUNT & AUTO [id number] 04:05:00 Test Item Value Reference Range Interpretation Comments WHITE BLOOD CELL COUNT (BEAKER) 11.0 K/ L 3.5-10.5 H (test code = 775) RED BLOOD CELL COUNT (BEAKER) 3.21 M/ L 4.63-6.08 L (test code = 761) HEMOGLOBIN (BEAKER) (test code = 10.1 GM/DL 13.7-17.5 L 410) HEMATOCRIT (BEAKER) (test code = 29.7 % 40.1-51.0 L 411) MEAN CORPUSCULAR VOLUME (BEAKER) 92.5 fL 79.0-92.2 H (test code = 753) MEAN CORPUSCULAR HEMOGLOBIN 31.5 pg 25.7-32.2 (BEAKER) (test code = 751) MEAN CORPUSCULAR HEMOGLOBIN CONC 34.0 GM/DL 32.3-36.5 (BEAKER) (test code = 752) RED CELL DISTRIBUTION WIDTH 13.0 % 11.6-14.4 (BEAKER) (test code = 412) PLATELET COUNT (BEAKER) (test 155 K/CU MM 150-450 code = 756) MEAN PLATELET VOLUME (BEAKER) 10.4 fL 9.4-12.4 (test code = 754) NUCLEATED RED BLOOD CELLS 0 /100 WBC 0-0 (BEAKER) (test code = 413) NEUTROPHILS RELATIVE PERCENT 89 % (BEAKER) (test code = 429) LYMPHOCYTES RELATIVE PERCENT 4 % (BEAKER) (test code = 430) MONOCYTES RELATIVE PERCENT 6 % (BEAKER) (test code = 431) EOSINOPHILS RELATIVE PERCENT 0 % (BEAKER) (test code = 432) BASOPHILS RELATIVE PERCENT 0 % (BEAKER) (test code = 437) NEUTROPHILS ABSOLUTE COUNT 9.84 K/ L 1.78-5.38 H (BEAKER) (test code = 670) LYMPHOCYTES ABSOLUTE COUNT 0.44 K/ L 1.32-3.57 L (BEAKER) (test code = 414) MONOCYTES ABSOLUTE COUNT (BEAKER) 0.67 K/ L 0.30-0.82 (test code = 415) EOSINOPHILS ABSOLUTE COUNT 0.00 K/ L 0.04-0.54 L (BEAKER) (test code = 416) BASOPHILS ABSOLUTE COUNT (BEAKER) 0.03 K/ L 0.01-0.08 (test code = 417) IMMATURE GRANULOCYTES-RELATIVE 1 % 0-1 PERCENT (BEAKER) (test code = 2802) BASIC METABOLIC [id number] 01:22:00 Test Item Value Reference Range Interpretation Comments SODIUM (BEAKER) 126 meq/L 136-145 L (test code = 381) POTASSIUM (BEAKER) 4.9 meq/L 3.5-5.1 (test code = 379) CHLORIDE (BEAKER) 100 meq/L 98-107 (test code = 382) CO2 (BEAKER) (test 17 meq/L 22-29 L code = 355) BLOOD UREA NITROGEN 29 mg/dL 7-21 H (BEAKER) (test code = 354) CREATININE (BEAKER) 2.08 mg/dL 0.57-1.25 H (test code = 358) GLUCOSE RANDOM 175 mg/dL 70-105 H (BEAKER) (test code = 652) CALCIUM (BEAKER) 8.3 mg/dL 8.4-10.2 L (test code = 697) EGFR (BEAKER) (test 31 mL/min/1.73 ESTIMA MARVIN GFR IS code = 1092) sq m NOT ACCURATE CREATININE CLEARANCE IN PREDICTING GLOMERULAR FILTRATION RATE . ESTIMATED GFR I S NOT APPLICABLE FOR DIALYSIS PATIEN TS. [id number] 11:02:00 Test Item Value Reference Range Interpretation Comments PARTIAL THROMBOPLASTIN TIME 32.6 seconds 22.5-36.0 (BEAKER) (test code = 760) PROTHROMBIN [id number] 11:01:00 Test Item Value Reference Range Interpretation Comments PROTIME (BEAKER) (test code = 16.3 seconds 11.7-14.7 H 759) INR (BEAKER) (test code = 370) 1.3 <=5.9 RECOMMENDED COUMADIN/WARFARIN INR THERAPY RANGESSTANDARD DOSE: 2.0 - 3.0 Includes: PROPHYLAXIS forvenous thrombosis, systemic embolization; TREATMENT for venous thrombosis and/or pulmonary embolus.HIGH RISK: Target INR is 2.5-3.5 for patients with mechanical heart valves.[id number] 10:54:00 Test Item Value Reference Range Interpretation Comments MAGNESIUM (BEAKER) (test code = 1.7 mg/dL 1.6-2.6 627) BASIC METABOLIC [id number] 10:54:00 Test Item Value Reference Range Interpretation Comments SODIUM (BEAKER) 131 meq/L 136-145 L (test code = 381) POTASSIUM (BEAKER) 4.6 meq/L 3.5-5.1 (test code = 379) CHLORIDE (BEAKER) 103 meq/L 98-107 (test code = 382) CO2 (BEAKER) (test 19 meq/L 22-29 L code = 355) BLOOD UREA NITROGEN 23 mg/dL 7-21 H (BEAKER) (test code = 354) CREATININE (BEAKER) 1.70 mg/dL 0.57-1.25 H (test code = 358) GLUCOSE RANDOM 103 mg/dL 70-105 (BEAKER) (test code = 652) CALCIUM (BEAKER) 8.7 mg/dL 8.4-10.2 (test code = 697) EGFR (BEAKER) (test 38 mL/min/1.73 ESTIMA MARVIN GFR IS code = 1092) sq m NOT ACCURATE CREATININE CLEARANCE IN PREDICTING GLOMERULAR FILTRATION RATE . ESTIMATED GFR I S NOT APPLICABLE FOR DIALYSIS PATIEN TS. CBC W/PLT COUNT & AUTO [id number] 10:35:00 Test Item Value Reference Range Interpretation Comments WHITE BLOOD CELL COUNT (BEAKER) 10.3 K/ L 3.5-10.5 (test code = 775) RED BLOOD CELL COUNT (BEAKER) 3.64 M/ L 4.63-6.08 L (test code = 761) HEMOGLOBIN (BEAKER) (test code = 11.5 GM/DL 13.7-17.5 L 410) HEMATOCRIT (BEAKER) (test code = 33.7 % 40.1-51.0 L 411) MEAN CORPUSCULAR VOLUME (BEAKER) 92.6 fL 79.0-92.2 H (test code = 753) MEAN CORPUSCULAR HEMOGLOBIN 31.6 pg 25.7-32.2 (BEAKER) (test code = 751) MEAN CORPUSCULAR HEMOGLOBIN CONC 34.1 GM/DL 32.3-36.5 (BEAKER) (test code = 752) RED CELL DISTRIBUTION WIDTH 12.8 % 11.6-14.4 (BEAKER) (test code = 412) PLATELET COUNT (BEAKER) (test 148 K/CU MM 150-450 L code = 756) MEAN PLATELET VOLUME (BEAKER) 10.2 fL 9.4-12.4 (test code = 754) NUCLEATED RED BLOOD CELLS 0 /100 WBC 0-0 (BEAKER) (test code = 413) NEUTROPHILS RELATIVE PERCENT 69 % (BEAKER) (test code = 429) LYMPHOCYTES RELATIVE PERCENT 14 % (BEAKER) (test code = 430) MONOCYTES RELATIVE PERCENT 11 % (BEAKER) (test code = 431) EOSINOPHILS RELATIVE PERCENT 4 % (BEAKER) (test code = 432) BASOPHILS RELATIVE PERCENT 1 % (BEAKER) (test code = 437) NEUTROPHILS ABSOLUTE COUNT 7.10 K/ L 1.78-5.38 H (BEAKER) (test code = 670) LYMPHOCYTES ABSOLUTE COUNT 1.48 K/ L 1.32-3.57 (BEAKER) (test code = 414) MONOCYTES ABSOLUTE COUNT (BEAKER) 1.10 K/ L 0.30-0.82 H (test code = 415) EOSINOPHILS ABSOLUTE COUNT 0.45 K/ L 0.04-0.54 (BEAKER) (test code = 416) BASOPHILS ABSOLUTE COUNT (BEAKER) 0.12 K/ L 0.01-0.08 H (test code = 417) IMMATURE GRANULOCYTES-RELATIVE 1 % 0-1 PERCENT (BEAKER) (test code = 2801) POCT-GLUCOSE [id number] 06:17:00 Test Item Value Reference Range Interpretation Comments POC-GLUCOSE METER 114 mg/dL 70-110 H TESTED AT [facility] 67[facility] (BEAKER) (test code = [address] [place] 1538) [address] HEMOGLOBIN [id number] 12:37:00 Test Item Value Reference Range Interpretation Comments HEMOGLOBIN A1C (BEAKER) (test code = 6.3 % 4.3-6.1 H 368) [id number] 12:05:00 Test Item Value Reference Range Interpretation Comments MAGNESIUM (BEAKER) (test code = 2.2 mg/dL 1.6-2.6 627) COMPREHENSIVE METABOLIC [id number] 12:05:00 Test Item Value Reference Range Interpretation Comments TOTAL PROTEIN 7.2 gm/dL 6.0-8.3 (BEAKER) (test code = 770) ALBUMIN (BEAKER) 4.0 g/dL 3.5-5.0 (test code = 1145) ALKALINE PHOSPHATASE 106 U/L 40-150 (BEAKER) (test code = 346) BILIRUBIN TOTAL 0.9 mg/dL 0.2-1.2 (BEAKER) (test code = 377) SODIUM (BEAKER) (test 130 meq/L 136-145 L code = 381) POTASSIUM (BEAKER) 5.0 meq/L 3.5-5.1 (test code = 379) CHLORIDE (BEAKER) 101 meq/L 98-107 (test code = 382) CO2 (BEAKER) (test 21 meq/L 22-29 L code = 355) BLOOD UREA NITROGEN 28 mg/dL 7-21 H (BEAKER) (test code = 354) CREATININE (BEAKER) 2.10 mg/dL 0.57-1.25 H (test code = 358) GLUCOSE RANDOM 102 mg/dL 70-105 (BEAKER) (test code = 652) CALCIUM (BEAKER) 9.4 mg/dL 8.4-10.2 (test code = 697) AST (SGOT) (BEAKER) 19 U/L 5-34 (test code = 353) ALT (SGPT) (BEAKER) 19 U/L 6-55 (test code = 347) EGFR (BEAKER) (test 30 mL/min/1.73 ESTIMA MARVIN GFR IS code = 1092) sq m NOT ACCURATE CREATININE CLEARANCE IN PREDICTING GLOMERULAR FILTRATION RATE . ESTIMATED GFR I S NOT APPLICABLE FOR DIALYSIS PATIEN TS. LIPID [id number] 12:05:00 Test Item Value Reference Range Interpretation Comments TRIGLYCERIDES (BEAKER) (test code = 55 mg/dL 540) CHOLESTEROL (BEAKER) (test code = 126 mg/dL 631) HDL CHOLESTEROL (BEAKER) (test code 57 mg/dL = 976) LDL CHOLESTEROL CALCULATED (BEAKER) 58 mg/dL (test code = 633) Triglyceride Reference Range: Low Risk <150 Borderline 150-199 High Risk 200-499 Very High Risk >=500Cholesterol Reference Range: Low Risk <200 Borderline 200-239 High Risk >240HDL Cholesterol Reference Range: Low Risk >=60 High Risk <40LDL Cholesterol Reference Range: Optimal <100 Near Optimal 100-129 Borderline 130-159 High 160-189 Very High >=190PROTHROMBIN [id number] 11:57:00 Test Item Value Reference Range Interpretation Comments PROTIME (BEAKER) (test code = 14.9 seconds 11.7-14.7 H 759) INR (BEAKER) (test code = 370) 1.2 <=5.9 RECOMMENDED COUMADIN/WARFARIN INR THERAPY RANGESSTANDARD DOSE: 2.0 - 3.0 Includes: PROPHYLAXIS forvenous thrombosis, systemic embolization; TREATMENT for venous thrombosis and/or pulmonary embolus.HIGH RISK: Target INR is 2.5-3.5 for patients with mechanical heart valves.[id number] 11:57:00 Test Item Value Reference Range Interpretation Comments PARTIAL THROMBOPLASTIN TIME 32.0 seconds 22.5-36.0 (BEAKER) (test code = 760) CBC W/PLT COUNT & AUTO [id number] 11:48:00 Test Item Value Reference Range Interpretation Comments WHITE BLOOD CELL COUNT (BEAKER) 9.7 K/ L 3.5-10.5 (test code = 775) RED BLOOD CELL COUNT (BEAKER) 4.29 M/ L 4.63-6.08 L (test code = 761) HEMOGLOBIN (BEAKER) (test code = 13.2 GM/DL 13.7-17.5 L 410) HEMATOCRIT (BEAKER) (test code = 40.3 % 40.1-51.0 411) MEAN CORPUSCULAR VOLUME (BEAKER) 93.9 fL 79.0-92.2 H (test code = 753) MEAN CORPUSCULAR HEMOGLOBIN 30.8 pg 25.7-32.2 (BEAKER) (test code = 751) MEAN CORPUSCULAR HEMOGLOBIN CONC 32.8 GM/DL 32.3-36.5 (BEAKER) (test code = 752) RED CELL DISTRIBUTION WIDTH 13.0 % 11.6-14.4 (BEAKER) (test code = 412) PLATELET COUNT (BEAKER) (test 207 K/CU MM 150-450 code = 756) MEAN PLATELET VOLUME (BEAKER) 10.6 fL 9.4-12.4 (test code = 754) NUCLEATED RED BLOOD CELLS 0 /100 WBC 0-0 (BEAKER) (test code = 413) NEUTROPHILS RELATIVE PERCENT 73 % (BEAKER) (test code = 429) LYMPHOCYTES RELATIVE PERCENT 12 % (BEAKER) (test code = 430) MONOCYTES RELATIVE PERCENT 10 % (BEAKER) (test code = 431) EOSINOPHILS RELATIVE PERCENT 4 % (BEAKER) (test code = 432) BASOPHILS RELATIVE PERCENT 1 % (BEAKER) (test code = 437) NEUTROPHILS ABSOLUTE COUNT 7.02 K/ L 1.78-5.38 H (BEAKER) (test code = 670) LYMPHOCYTES ABSOLUTE COUNT 1.17 K/ L 1.32-3.57 L (BEAKER) (test code = 414) MONOCYTES ABSOLUTE COUNT (BEAKER) 0.94 K/ L 0.30-0.82 H (test code = 415) EOSINOPHILS ABSOLUTE COUNT 0.38 K/ L 0.04-0.54 (BEAKER) (test code = 416) BASOPHILS ABSOLUTE COUNT (BEAKER) 0.12 K/ L 0.01-0.08 H (test code = 417) IMMATURE GRANULOCYTES-RELATIVE 0 % 0-1 PERCENT (BEAKER) (test code = 7236)
[2020-08-12 09:05] LABS: Protime INR 1.13
[2020-08-12] MEDS ORDERED: NA CHLORIDE 0.9% 1,000 ML ONE (09:06)
[2020-08-12 09:07] LABS: Absolute Lymphocytes (CBC) 1.5 K/uL (0.7-4.9); Basophils % 1.3 % (0-1.3); Hematocrit 41.5 % (39.6-49.0); Lymphocytes % 15.3 % (15.3-44.8); MPV 9.1 fL (7.6-11.3); RBC Red Blood Cell Count 4.44 M/uL (4.33-5.43)
[2020-08-12] MEDS ORDERED: Nicardipine/NS 25 MG/250 ML KIT IV ONE (09:10)
[2020-08-12 09:19] LABS: Albumin 3.9 g/dL (3.4-5.0); Bilirubin Direct 0.6 mg/dL (0-0.2); Bilirubin Total 1.4 mg/dL (0.2-1.0); Magnesium 2.1 mg/dL (1.8-2.4); Potassium 4.2 mmol/L (3.5-5.1); Protein, Total 8.5 g/dL (6.4-8.2); Troponin (Emerg Dept Use Only) 0.02 ng/mL (0.0-0.045)
--- NOTE | 2020-08-12 09:31 | RAD REPORT ---
EXAM DESCRIPTION: CT - Head C Spine Mpr Wo Con - 08/12/2020 9:15 am CLINICAL HISTORY: Head and neck injury status post fall. Head and neck pain COMPARISON: None. TECHNIQUE: Computed axial tomography of the head and cervical spine was obtained. Sagittal and coronal reconstruction was performed. All CT scans are performed using dose optimization technique as appropriate and may include automated exposure control or mA/KV adjustment according to patient size. FINDINGS: An intracranial bleed is not seen. Mild to moderate low-density areas within periventricul ar, deep and subcortical white matter likely ischemic changes secondary to small vessel disease. The ventricles are normal in caliber. An extra-axial fluid collection is not noted.Fluid within the v isualized sinuses and mastoids is not seen A cervical fracture is not visualized. No dislocation is noted. Spondylosis involves the cervical spi ne IMPRESSION: No acute intracranial abnormality is seen. A cervical fracture is not visualized.
--- NOTE | 2020-08-12 09:32 | RAD REPORT ---
EXAM DESCRIPTION: Kiya Single View3 9:10 am CLINICAL HISTORY: Chest pain COMPARISON: 2019 FINDINGS: Small to moderate right pleural effusion with basilar atelectasis Mild bilateral pulmonary opacities. Heart is mildly enlarged IMPRESSION: These findings may indicate mild CHF
--- NOTE | 2020-08-12 09:38 | ER ---
Nurse's Notes [facility] Name: John Cox Age: 85 yrs Sex: Male : 1935 Arrival Date: 08/12/2020 Time: 08:25 Bed 4 Private MD: Ankita Corbett H Diagnosis: Hypertensive encephalopathy Presentation: 08/12 08:26 Chief complaint: Patient's son or daughter states: "he's been very confused since aa5 yesterday just saying the same thing over and over again and not being able to do normal things like turning on the TV". Pt currently awake, confused, A\\T\\O x 0 and unable to follow commands. Steady gait was noted upon entering ER lob. Pt's son states "he did bump his head in a chicken coop". 08:26 Risk Assessment: Do you want to hurt yourself or someone else? Unable to obtain. Onset aa5 of symptoms was July 2020. 08:26 Acuity: JES 2 aa5 08:26 Method Of Arrival: Ambulatory aa5 09:26 Coronavirus screen: At this time, the client does not indicate any symptoms associated jd3 with coronavirus-19. Initial Sepsis Screen: Does the patient meet any 2 criteria? No. Patient's initial sepsis screen is negative. Does the patient have a suspected source of infection? No. Patient's initial sepsis screen is negative. 09:27 Ebola Screen: Patient negative for fever greater than or equal to 101.5 degrees jd3 Fahrenheit, and additional compatible Ebola Virus Disease symptoms. Historical: - PMHx: 08:26 Hypertension; aa5 - Immunization history:: Adult Immunizations unknown. - Social history:: Patient/guardian denies using alcohol, street drugs, Smoking status: unknown. - Family history:: pertinent for. Screenin:26 Abuse screen: Denies threats or abuse. Nutritional screening: No deficits noted. jd3 Tuberculosis screening: No symptoms or risk factors identified. Fall Risk Ambulatory Aid- None/Bed Rest/Nurse Assist (0 pts). Gait- Normal/Bed Rest/Wheelchair (0 pts) Mental Status- Oriented to own ability (0 pts). Total Castellon Fall Scale indicates No Risk (0-24 pts). Assessment: 08:45 General: Appears comfortable, Behavior is calm, cooperative. jd3 08:45 Pain: Denies pain. Neuro: Level of Consciousness is awake, alert, confused, Oriented to jd3 none Moves all extremities. Full function Speech is normal, Facial symmetry appears normal. Cardiovascular: Capillary refill < 3 seconds Patient's skin is warm and dry. Rhythm is regular. Respiratory: Airway is patent Respiratory effort is even, unlabored, Respiratory pattern is regular, symmetrical, Denies cough, shortness of breath. GI: Abdomen is round non-distended, Patient currently denies abdominal pain, Parent/caregiver reports the patient having nausea. : No signs and/or symptoms were reported regarding the genitourinary system. EENT: No signs and/or symptoms were reported regarding the EENT system. Derm: Skin is intact, Skin is dry, Skin is normal, Skin temperature is warm Wound noted head Wound is small abrasion noted to top of head that is healing and scabbed. Musculoskeletal: No signs and/or symptoms reported regarding the musculoskeletal system. 09:21 Reassessment: No changes from previously documented assessment. Patient and/or family jd3 updated on plan of care and expected duration. Pain level reassessed. Patient denies pain at this time. 09:42 Reassessment: No changes from previously documented assessment. Patient and/or family jd3 updated on plan of care and expected duration. Pain level reassessed. Patient denies pain at this time. 10:54 Reassessment: Patient appears in no apparent distress at this time. No changes from jd3 previously documented assessment. Patient and/or family updated on plan of care and expected duration. Pain level reassessed. Patient denies pain at this time. 11:09 Reassessment: Patient appears in no apparent distress at this time. No changes from jd3 previously documented assessment. Patient and/or family updated on plan of care and expected duration. Pain level reassessed. 11:38 Reassessment: Patient appears in no apparent distress at this time. No changes from jd3 previously documented assessment. Patient and/or family updated on plan of care and expected duration. Pain level reassessed. cheese pancake roller at bedside, awaiting admission. 12:30 Reassessment: Patient appears in no apparent distress at this time. No changes from jd3 previously documented assessment. Patient and/or family updated on plan of care and expected duration. Pain level reassessed. 13:30 Reassessment: Patient appears in no apparent distress at this time. No changes from jd3 previously documented assessment. Patient and/or family updated on plan of care and expected duration. Pain level reassessed. 14:30 Reassessment: Patient appears in no apparent distress at this time. No changes from jd3 previously documented assessment. Patient and/or family updated on plan of care and expected duration. Pain level reassessed. 15:30 Reassessment: Patient appears in no apparent distress at this time. No changes from jd3 previously documented assessment. Patient and/or family updated on plan of care and expected duration. Pain level reassessed. awaiting admission Patient denies pain at this time. 16:30 Reassessment: Patient appears in no apparent distress at this time. No changes from jd3 previously documented assessment. Patient and/or family updated on plan of care and expected duration. Pain level reassessed. 17:17 Reassessment: Patient appears in no apparent distress at this time. Patient and/or jd3 family updated on plan of care and expected duration. Pain level reassessed. report given to ER ICU. awaiting room to be cleaned before moving pt. Vital Signs: 08:30 BP 268 / 144; Pulse 98; Resp 18 S; Pulse Ox 100% on R/A; aa5 09:17 BP 213 / 98; Pulse 93; Resp 17 S; Temp 98.7(TE); Pulse Ox 100% on R/A; jd3 09:41 BP 168 / 75; Pulse 87; Resp 16 S; Pulse Ox 100% on R/A; jd3 10:54 BP 172 / 78; Pulse 94; Resp 18 S; Pulse Ox 100% on R/A; jd3 11:39 BP 172 / 77; Pulse 95; Resp 17 S; Pulse Ox 97% on R/A; jd3 12:30 BP 187 / 81; Pulse 90; Resp 16 S; Pulse Ox 96% on R/A; jd3 13:30 BP 175 / 105; Pulse 90; Resp 18 S; Pulse Ox 96% on R/A; jd3 14:27 BP 166 / 96; Pulse 91; Resp 18 S; Pulse Ox 95% on R/A; jd3 15:34 BP 167 / 96; Pulse 94; Resp 20 S; Pulse Ox 95% on R/A; jd3 17:17 BP 190 / 97; Pulse 83; Resp 16 S; Pulse Ox 96% on R/A; jd3 18:45 BP 164 / 83; Pulse 85; Resp 17 S; Pulse Ox 95% on R/A; jd3 19:40 Weight 76.25 kg; ea ED Course: 08:25 Patient arrived in ED. am2 08:25 Ankita Corbett DO is Private Physician. am2 08:26 Arm band placed on. aa5 08:27 Andre Alvarez MD is Attending Physician. ma2 08:32 Alhaji Ramos RN is Primary Nurse. jd3 08:40 Triage completed. aa5 08:45 Inserted saline lock: 20 gauge in right forearm, using aseptic technique. Blood jd3 collected. 08:48 EKG done, by ED staff, reviewed by Andre Alvarez MD. em1 09:12 XRAY Chest (1 view) In Process Unspecified. EDMS 09:15 CT Head C Spine In Process Unspecified. EDMS 09:26 Patient has correct armband on for positive identification. Placed in gown. Bed in low jd3 position. Call light in reach. Side rails up X2. Adult w/ patient. site monitor on. Pulse ox on. NIBP on. 09:37 Antolin Spears MD is Hospitalizing Provider. ma2 10:48 Warm blanket given. Verbal reassurance given. Linen changed. em1 12:57 COVID swab sent to lab. em1 14:44 No provider procedures requiring assistance completed. Patient admitted, IV remains in bp place. 20:21 Primary Nurse role handed off by Alhaji Ramos RN ea Administered Medications: 09:00 Drug: NS 0.9% 1000 ml Route: IV; Rate: 1 bolus; Site: right forearm; jd3 10:00 Follow up: Response: No adverse reaction; IV Status: Completed infusion; IV Intake: jd3 1000ml 09:00 Drug: niCARdipine (25mg/250ml) 5 mg/hr {Note: titrating to keep systolic BP between jd3 140-180 per verbal order's from provider..} Route: IV; Rate: calculated rate; Site: right forearm; 10:00 Follow up: Response: No adverse reaction; IV Status: Infusion continued upon admission jd3 19:50 Drug: Heparin (MA-Bolus No thrombolytic) - HEParin 60 units/kg {Co-Signature: em (Sergio Ordoñez RN).} Route: IVP; Site: right antecubital; Intake: 10:00 IV: 1000ml; Total: 1000ml. jd3 Outcome: 09:37 Decision to Hospitalize by Provider. ma2 17:18 Admitted to ICU accompanied by nurse, via stretcher, room ER ICU 10. jd3 17:18 Condition: stable 17:18 Instructed on the need for admit. 20:14 Patient left the ED. lp1 20:23 Patient left the ED. ea Signatures: Dispatcher [employer] Simone [place] em1 Connie Almanza, RN RN aa5 Rose Mary Mcnamara RN RN lp1 Deedee Heaton Elena RN Alhaji Hernadez ea, RN RN jd3 Rustam Condon RN Andre Alberto MD MD ma2 Sergio Ordoñez RN em Corrections: (The following items were deleted from the chart) 09:20 09:00 niCARdipine (25mg/250ml) 5 mg/hr IV at calculated rate in right forearm jd3 jd3 11:40 11:38 Reassessment: Patient appears in no apparent distress at this time. No changes jd3 from previously documented assessment. Patient and/or family updated on plan of care and expected duration. Pain level reassessed. cheese pancake roller at bedside jd3 15:34 14:27 Reassessment: Patient appears in no apparent distress at this time. No changes jd3 from previously documented assessment. Patient and/or family updated on plan of care and expected duration. Pain level reassessed. jd3 19:11 18:30 BP 164 / 83; Pulse 85bpm; Resp 17bpm; Spontaneous; Pulse Ox 95% RA; jd3 jd3
--- NOTE | 2020-08-12 09:38 | EDPHYS ---
Physician Documentation [facility] Name: John Cox Age: 85 yrs Sex: Male : 1935 Arrival Date: 08/12/2020 Time: 08:25 Bed 4 Private MD: Ankita Corbett H ED Physician Andre Alvarez HPI: 08/12 08:48 This 85 yrs old Male presents to ER via Ambulatory with complaints of High ma2 Blood Pressure, Nausea/Vomiting, Altered Mental Status. 08:48 The patient has elevated blood pressure and discovered this at home. Onset: The ma2 symptoms/episode began/occurred gradually, 1 week(s) ago. Associated signs and symptoms: Pertinent positives: confusion, Pertinent negatives: headache, lightheadedness. Severity of symptoms: At its worst the blood pressure was severe, in the emergency department the blood pressure is unchanged. The patient has experienced similar episodes in the past. Historical: - PMHx: 08:26 Hypertension; aa5 - Immunization history:: Adult Immunizations unknown. - Social history:: Patient/guardian denies using alcohol, street drugs, Smoking status: unknown. - Family history:: pertinent for. ROS: 08:48 Constitutional: Negative for fever, chills, and weight loss. ma2 08:48 Unable to obtain ROS due to altered mental status. Exam: 08:48 Constitutional: This is a well developed, well nourished patient who is awake, alert, ma2 and in no acute distress. Head/Face: Normocephalic, atraumatic. Eyes: Pupils equal round and reactive to light, extra-ocular motions intact. Lids and lashes normal. Conjunctiva and sclera are non-icteric and not injected. Cornea within normal limits. Periorbital areas with no swelling, redness, or edema. ENT: Nares patent. No nasal discharge, no septal abnormalities noted. Tympanic membranes are normal and external auditory canals are clear. Oropharynx with no redness, swelling, or masses, exudates, or evidence of obstruction, uvula midline. Mucous membranes moist. Neck: Trachea midline, no thyromegaly or masses palpated, and no cervical lymphadenopathy. Supple, full range of motion without nuchal rigidity, or vertebral point tenderness. No Meningismus. Chest/axilla: Normal chest wall appearance and motion. Nontender with no deformity. No lesions are appreciated. Cardiovascular: Regular rate and rhythm with a normal S1 and S2. No gallops, murmurs, or rubs. Normal PMI, no JVD. No pulse deficits. Respiratory: Lungs have equal breath sounds bilaterally, clear to auscultation and percussion. No rales, rhonchi or wheezes noted. No increased work of breathing, no retractions or nasal flaring. Abdomen/GI: Soft, non-tender, with normal bowel sounds. No distension or tympany. No guarding or rebound. No evidence of tenderness throughout. Skin: Warm, dry with normal turgor. Normal color with no rashes, no lesions, and no evidence of cellulitis. MS/ Extremity: Pulses equal, no cyanosis. Neurovascular intact. Full, normal range of motion. Neuro: Awake and alert, GCS 14, yet confused and not able to answer orientation questions, he moves all extremeties and walk with normal gait Vital Signs: 08:30 BP 268 / 144; Pulse 98; Resp 18 S; Pulse Ox 100% on R/A; aa5 09:17 BP 213 / 98; Pulse 93; Resp 17 S; Temp 98.7(TE); Pulse Ox 100% on R/A; jd3 09:41 BP 168 / 75; Pulse 87; Resp 16 S; Pulse Ox 100% on R/A; jd3 10:54 BP 172 / 78; Pulse 94; Resp 18 S; Pulse Ox 100% on R/A; jd3 11:39 BP 172 / 77; Pulse 95; Resp 17 S; Pulse Ox 97% on R/A; jd3 12:30 BP 187 / 81; Pulse 90; Resp 16 S; Pulse Ox 96% on R/A; jd3 13:30 BP 175 / 105; Pulse 90; Resp 18 S; Pulse Ox 96% on R/A; jd3 14:27 BP 166 / 96; Pulse 91; Resp 18 S; Pulse Ox 95% on R/A; jd3 15:34 BP 167 / 96; Pulse 94; Resp 20 S; Pulse Ox 95% on R/A; jd3 17:17 BP 190 / 97; Pulse 83; Resp 16 S; Pulse Ox 96% on R/A; jd3 18:45 BP 164 / 83; Pulse 85; Resp 17 S; Pulse Ox 95% on R/A; jd3 19:40 Weight 76.25 kg; ea MDM: 08:27 Patient medically screened. pa2 08:48 Differential diagnosis: hypertensive crisis, Malignant HTN, CVA, intracerebral ma2 hemorrhage. 08:53 Differential diagnosis: bp is 270/140 at this time, will get cth and lower Map by 30%, hina will start him on nicardipine drip, with goal sbp between 140 and 180 and wean to minimum required dose. [employer] order does not allow this goal bp spicifications. I communicated that with the nurse taking care of him. 09:35 Data reviewed: vital signs, nurses notes. Counseling: I had a detailed discussion with [facility] the patient and/or guardian regarding: the historical points, exam findings, and any diagnostic results supporting the discharge/admit diagnosis, the presence of at least one elevated blood pressure reading (>120/80) during this emergency department visit, the need for further work-up and treatment in the hospital. Response to treatment: the patient's symptoms have markedly improved after treatment. 08/12 08:28 Order name: Basic Metabolic Panel [facility] 08/12 08:28 Order name: CBC with Diff [facility] 08/12 08:28 Order name: LFT's [facility] 08/12 08:28 Order name: Magnesium [facility] 08/12 08:28 Order name: NT PRO-BNP [facility] 08/12 08:28 Order name: PT-INR; Complete Time: 09:33 [facility] 08/12 08:28 Order name: Troponin (emerg Dept Use Only); Complete Time: 09:33 [facility] 08/12 08:30 Order name: Basic Metabolic Panel; Complete Time: 09:33 [facility] 08/12 08:30 Order name: CBC with Automated Diff; Complete Time: 09:33 [facility] 08/12 08:30 Order name: Liver (Hepatic) Function; Complete Time: 09:33 [facility] 08/12 08:30 Order name: Magnesium; Complete Time: 09:33 [facility] 08/12 08:30 Order name: NT PRO-BNP; Complete Time: 09:33 [facility] 08/12 12:25 Order name: COVID-19 : Document "Date of Symptom Onset" if Symptomatic. eb 08/12 12:53 Order name: CORONAVIRUS [facility] 08/12 08:28 Order name: XRAY Chest (1 view); Complete Time: 09:33 ma2 08/12 08:28 Order name: EKG; Complete Time: 08:31 ma2 08/12 08:36 Order name: CT Head C Spine; Complete Time: 09:33 ma2 08/12 13:23 Order name: Troponin I; Complete Time: 18:53 EDMS 08/12 13:33 Order name: SARS-COV-2 RT PCR; Complete Time: 18:53 EDMS 08/12 19:13 Order name: Urine Dipstick--Ancillary (enter results) ds4 08/12 19:17 Order name: Urine Dipstick-Ancillary; Complete Time: 19:17 EDMS 08/12 19:17 Order name: Troponin I; Complete Time: 19:19 EDMS 08/12 19:28 Order name: UR SODIUM EDMS 08/12 19:30 Order name: Urinalysis W/Microscopic EDMS 08/12 19:41 Order name: Ur Protein EDPA 08/12 19:43 Order name: Osmolality, Urine EDMS 08/12 19:57 Order name: UR POTASSIUM EDMS 08/12 08:28 Order name: Cardiac monitoring; Complete Time: 08:37 ma2 08/12 08:28 Order name: EKG - Nurse/Tech; Complete Time: 08:46 ma2 08/12 08:28 Order name: IV Saline Lock; Complete Time: 08:46 ma2 08/12 08:28 Order name: Labs collected and sent; Complete Time: 08:46 pa2 08/12 08:28 Order name: O2 Per Protocol; Complete Time: 08:37 pa2 08/12 08:28 Order name: O2 Sat Monitoring; Complete Time: 08:37 ma2 08/12 08:36 Order name: Urine Dipstick-Ancillary (obtain specimen); Complete Time: 19:13 pa2 08/12 10:45 Order name: CONS Physician Consult EDPA Administered Medications: 09:00 Drug: NS 0.9% 1000 ml Route: IV; Rate: 1 bolus; Site: right forearm; jd3 10:00 Follow up: Response: No adverse reaction; IV Status: Completed infusion; IV Intake: jd3 1000ml 09:00 Drug: niCARdipine (25mg/250ml) 5 mg/hr {Note: titrating to keep systolic BP between jd3 140-180 per verbal order's from provider..} Route: IV; Rate: calculated rate; Site: right forearm; 10:00 Follow up: Response: No adverse reaction; IV Status: Infusion continued upon admission jd3 19:50 Drug: Heparin (OK-Bolus No thrombolytic) - HEParin 60 units/kg {Co-Signature: em (Sergio Ordoñez RN).} Route: IVP; Site: right antecubital; Disposition: 08/12/20 09:37 Hospitalization ordered by Antolin Spears for Inpatient Admission. Preliminary diagnosis is Hypertensive encephalopathy. - Bed requested for Intensive Care Unit. - Status is Inpatient Admission. ea - Condition is Guarded. - Problem is new. - Symptoms have improved. Signatures: Dispatcher [employer] EDRiri Sung, LEANDROC ERP TECHNICAL LEAD-Ckb Connie Almanza, RN ISI aa5 Rose Mary Mcnamara RN RN lp1 Samuel Moore FNP-C FNP-Cla1 Elizabeth Tony RN Alhaji Hernadez ea, RN RN jAndre Panchal MD MD ma2 Sergio celis Corrections: (The following items were deleted from the chart) 13:43 09:37 Hospitalization Ordered by Antolin Spears MD for Inpatient Admission. Preliminary aa5 diagnosis is Hypertensive encephalopathy. Bed requested for Intensive Care Unit. Status is Inpatient Admission. Condition is Guarded. Problem is new. Symptoms have improved. ma2 15:54 13:43 08/12/2020 09:37 Hospitalization Ordered by Antolin Spears MD for Inpatient aa5 Admission. Preliminary diagnosis is Hypertensive encephalopathy. Bed requested for Intensive Care Unit. Status is Inpatient Admission. Condition is Guarded. Problem is new. Symptoms have improved. aa5 20:14 15:54 08/12/2020 09:37 Hospitalization Ordered by Antolin Spears MD for Inpatient lp1 Admission. Preliminary diagnosis is Hypertensive encephalopathy. Bed requested for Intensive Care Unit. Status is Inpatient Admission. Condition is Guarded. Problem is new. Symptoms have improved. aa5 20:14 20:14 08/12/2020 09:37 Hospitalization Ordered by Antolin Spears MD for Inpatient lp1 Admission. Preliminary diagnosis is Hypertensive encephalopathy. Bed requested for Intensive Care Unit. Status is Inpatient Admission. Condition is Guarded. Problem is new. Symptoms have improved. lp1 20:23 20:14 08/12/2020 09:37 Hospitalization Ordered by Antolin Spears MD for Inpatient ea Admission. Preliminary diagnosis is Hypertensive encephalopathy. Bed requested for Intensive Care Unit. Status is Inpatient Admission. Condition is Guarded. Problem is new. Symptoms have improved. lp1
--- NOTE | 2020-08-12 10:54 | P.HP ---
Certification for Inpatient Patient admitted to: Inpatient With expected LOS: >2 Midnights Practitioner: I am a practitioner with admitting privileges, knowledge of patient current condition, hospital course, and medical plan of care. Services: Services provided to patient in accordance with Admission requirements found in Title 42 Section 412.3 of the Code of Federal Regulations Patient History Date of Service: 08/12/20 Reason for admission: Hypertensive emergency History of Present Illness: 85-year-old male, PMH: HTN, CKDIII, brought to ED due to altered mental status / confusion since yesterday. Patient is accompanied by his son. Son reports the patient reportedly bumped his head while walking under/through a doorway yesterday early afternoon. Son states later in the evening the patient was noted to be more confused, lethargic, and not making sense. The patient was sleeping and very difficult to arouse overnight. Son states the patient had a similar symptoms approximately 1 year ago when he had hypertensive emergency. Son states the patient has been taking his medications as prescribed except for yesterday evening. States patient took his medication this morning. He does report the patient's blood pressure typically runs high in the 170/90 area. He otherwise reports that the patient has not been complaining of anything else that was in his usual state of health yesterday morning. The patient has confusion and hard of hearing, he is misunderstanding what we are saying / not appropriately responding correctly. He reports he is feeling well. In the ED, CT head was negative for acute process, CXR: Small moderate right pleural effusion, mild bilateral pulmonary opacities. No leukocytosis, mild hyponatremia 131, creatinine: 1.94, glucose: 25, BNP: 6573. He was started on a Cardene drip, blood pressure came down to 170/90s. Patient still with confusion. Allergies No Known Allergies Allergy (Verified 08/23/18 11:18) Home Medications: Amlodipine [Norvasc*] 10 mg PO DAILY #30 tab 08/07/18 Aspirin [Aspirin EC 81 MG] 81 mg PO DAILY #30 tablet.dr 08/07/18 Atorvastatin Calcium [Lipitor] 80 mg PO BEDTIME #30 tab 08/07/18 Losartan Potassium [Cozaar*] 50 mg PO DAILY #30 tablet 08/07/18 Metoprolol Tartrate [Lopressor*] 50 mg PO BID #60 tab 08/07/18 cloNIDine HCL [Catapres] 0.1 mg PO Q8H PRN #30 tablet 08/07/18 - Past Medical/Surgical History Diabetic: No -: HTN -: Carotid artery stenosis s/p CEA -: CKDIII -: cataract surgery - Family History Father -: Hypertension Brother -: Cancer - Social History Smoking Status: Former smoker (>50yrs ago) Alcohol use: Yes CD- Drugs: No Caffeine use: Yes Place of Residence: Home Review of Systems is unable to be obtained Physical Examination - Studies Laboratory Data (last 24 hrs) 08/12/20 08:41: WBC 9.90, Hgb 13.7, Hct 41.5, Plt Count 207 08/12/20 08:41: Sodium 131 L, Potassium 4.2, BUN 25 H, Creatinine 1.94 H, Glucose 125 H, Magnesium 2.1, Total Bilirubin 1.4 H, AST 26, ALT 28, Alkaline Phosphatase 127 H 08/12/20 01:53: PT 13.0 H, INR 1.13 Assessment and Plan - Advance Directives Does patient have a Living Will: Yes Does patient have a Durable POA for Healthcare: Yes Physician Review Additional Text: Physical exam Gen: NAD, confused HEENT: small ~3cm superficial laceration on R scalp, no surroudning erythema, no active bleed, no drainage, mild TTP, PERRL CV: regular rate and rhythm Pulm: diminished bilaterally (R>L), crackles at R base, nonlabored on room air Abd: soft, NTND Ext: 1-2+ pitting edema bilaterally to knees Neuro: confused, AAOx1, responds inappropriately to some questions, hard of hearing, moves all extremities, no focal defecit Problem list HTN Emergency with encephalopathy Volume overload DEWEY on CKDIII, atrophic L kidney Carotid artery stenosis s/p CEA -admit to ICU, continue Cardene drip, lower BP slowly -altered mental status/acute encephalopathy likely secondary to hypertensive emergency -no focal neurologic findings on exam, however patient unable to understand/follow commands, seems his hearing is contributing to this -consider MRI tomorrow -cardiology consulted - reports recreational therapist is Dr. Bui and has been following with his BP over the years, son reports pt has "allergies to some BP meds" -nephrology consulted for DEWEY / CKD, resistant HTN, unclear if renal disease is contributing. awaiting UA -sone reports pt takes losartan and clonidine - unsure of dosage Code: full VTE: lovenox Dispo: anticipate dc home in ~48hrs pt lives at home alone - has caregiver that lives with him, but has been out of town for ~3 weeks son lives next door and checks on patient Time Spent Managing Pts Care (In Minutes): 60
--- NOTE | 2020-08-12 11:05 | P.CNS ---
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 Baseline SCr 1.6- 1.8 as of 07/2018. SCr today is 1.94. Had prior w/u for Htn including low serum renin & arpit & neg urinary metanephrines. Not behaving as primary or secondary hyperaldosteronism as no prior hx of hypoK & chronic bicarb elevation. Pt's son reports he has good adherence to home anti-Htn meds. Was on super high dose ARB via valsartan 360 mg po bid. Also taking clonidine at home. Has serum protein gap. Admitted for further eval & mngt. Allergies No Known Allergies Allergy (Verified 08/23/18 11:18) Home Medications: Apixaban [Eliquis] 2.5 mg PO BID 08/13/20 Valsartan 320 mg PO BID 08/13/20 cloNIDine HCL [Catapres] 0.2 mg PO BID 08/13/20 - Past Medical/Surgical History Diabetic: No -: HTN -: cataract surgery - Family History Father Medical History: Hypertension Brother Medical History: Cancer - Social History Smoking Status: Former smoker Alcohol use: Yes CD- Drugs: No Caffeine use: Yes Review of Systems General: Weakness Eyes: Unremarkable ENT: Unremarkable Respiratory: Unremarkable Cardiovascular: Unremarkable Gastrointestinal: Nausea, Vomiting Genitourinary: Unremarkable Musculoskeletal: Other (weakness) Integumentary: Unremarkable Neurological: Confusion Lymphatics: Unremarkable Physical Examination General: In no apparent distress HEENT: Atraumatic, Normocephalic Neck: Supple, Without JVD or thyroid abnormality Respiratory: Clear to auscultation bilaterally Cardiovascular: No murmurs Gastrointestinal: Soft and benign, Non-distended Musculoskeletal: No swelling Integumentary: Other (Normal temp) Neurological: Other (+confusion) Lymphatics: No axilla or inguinal lymphadenopathy Urinary: Other (No kim) External genitalia: Deferred Rectal: Deferred Laboratory Data (last 24 hrs) 08/12/20 08:41: WBC 9.90, Hgb 13.7, Hct 41.5, Plt Count 207 08/12/20 08:41: Sodium 131 L, Potassium 4.2, BUN 25 H, Creatinine 1.94 H, Glucose 125 H, Magnesium 2.1, Total Bilirubin 1.4 H, AST 26, ALT 28, Alkaline Phosphatase 127 H 08/12/20 01:53: PT 13.0 H, INR 1.13 Conclusions/Impression: # CKD3 Hx of congenital solitary functioning kidney per pt report, uncontrolled Htn, carotid artery stenosis s/p L carotid endarterectomy, & overt proteinuria but no hx of DM, who p/w N/V/high BP, initial BP 268/144, head CT neg, found to be Renal fxn stable at baseline Baseline SCr 1.6-1.8 as of 07/2018. SCr today is 1.94 today Mon[facility]ore renal panel # Htn emergency BP has been uncontrolled at home +acute HF +acute encephalopathy Head CT neg Hx of L carotid artery stenosis s/p endarterectomy Cardene gtt started Was on super high dose valsartan at home, plus clonidine Start irebesartan, carvedilol, amlodipine Had prior w/u for Htn including low serum renin & arpit & neg urinary metanephrines F/u renal doppler US to assess for renal artery stenosis. May still be a case of BLUE, but most common reason for resistant Htn is still CKD. 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
[2020-08-12] MEDS ORDERED: IRBESARTAN 150 MG TAB PO SCH (12:00)
[2020-08-12] MEDS ORDERED: AMLODIPINE 10 MG TAB PO SCH (12:00)
[2020-08-12] MEDS ORDERED: lisinopriL 20 MG TAB PO SCH (12:00)
[2020-08-12] MEDS ORDERED: carvediloL 6.25 MG TAB PO SCH (12:00)
[2020-08-12] MEDS ORDERED: Nicardipine in Saline, Iso-Osm 20 MG/200 ML IV.SOLN. IV PRN (12:01)
[2020-08-12] MEDS ORDERED: lisinopriL 20 MG TAB ONE (12:31)
[2020-08-12] MEDS ORDERED: carvediloL 6.25 MG TAB ONE ×2 (12:31→21:03)
[2020-08-12] MEDS ORDERED: IRBESARTAN 150 MG TAB PO ONE (13:00)
[2020-08-12] MEDS ORDERED: ENOXAPARIN 40 MG/0.4 ML SQ SCH (13:00)
[2020-08-12] MEDS ORDERED: ENOXAPARIN 40 MG/0.4 ML SQ ONE (16:19)
[2020-08-12 19:17] LABS: Urine Blood 1+ (NEG); Urine Glucose NEGATIVE (NEG); Urine Protein 3+ (NEG); Urine Specific Gravity 1.025 (1.005-1.030)
[2020-08-12 19:20] LABS: Urine Appearance CLEAR; Urine Bilirubin NEGATIVE (NEG); Urine Blood 1+ (NEG); Urine Color YELLOW; Urine Glucose TRACE (NEG); Urine Protein 3+ (NEG); Urine Specific Gravity 1.015 (1.005-1.030); Urine Urobilinogen 0.2 mg/dL (0.2-1.0)
--- NOTE | 2020-08-12 19:28 | P.PN ---
Date of Service: 08/12/20 Third troponin significantly elevated. case discussed with cardiology, will initiate heparin drip. BP currently under control, will use cardene PRN. Echo, further trending trop, NPO going forward. Pt still globally confused, no specific complaints noted. CT head negative for bleed/acute findings. Family at [facility], case discussed with son as well. Continue ICU care.
[2020-08-12] MEDS ORDERED: POLYETHYL GLY 3350 17 GM/DOSE PO ONE (19:35)
[2020-08-12] MEDS ORDERED: HEPARIN/D5W 25,000 UNIT/500 ML BAG IV ONE (19:40)
[2020-08-12] MEDS ORDERED: HEPARIN 5000 UNIT/ML 1 ML VIAL ONE (19:40)
[2020-08-12 19:41] LABS: Urine Protein/Creatinine Ratio 4.85 ratio (<0.15)
[2020-08-12 19:44] LABS: Urine Bacteria <20 /HPF (NONE SEEN); Urine RBC <5 /HPF (NONE SEEN)
[2020-08-12] MEDS ORDERED: HEPARIN/D5W 25,000 UNIT/500 ML BAG IV SCH (20:00)
[2020-08-12] MEDS: carvediloL 6.25 MG TAB PO SCH (21:17)
[2020-08-13 05:16] LABS: Absolute Lymphocytes (CBC) 0.7 K/uL (0.7-4.9); Basophils % 0.5 % (0-1.3); Hematocrit 36.7 % (39.6-49.0); Lymphocytes % 7.4 % (15.3-44.8); MPV 9.2 fL (7.6-11.3); RBC Red Blood Cell Count 3.98 M/uL (4.33-5.43)
[2020-08-13 05:49] LABS: Albumin 3.2 g/dL (3.4-5.0); Magnesium 2.2 mg/dL (1.8-2.4); Potassium 4.6 mmol/L (3.5-5.1); Protein, Total 7.2 g/dL (6.4-8.2)
[2020-08-13 05:52] LABS: Troponin I 24.4 ng/mL (0.0-0.045)
[2020-08-13] MEDS ORDERED: IRBESARTAN 150 MG TAB PO STA (06:58)
[2020-08-13] MEDS ORDERED: carvediloL 6.25 MG TAB ONE ×2 (07:45→19:05)
[2020-08-13] MEDS ORDERED: AMLODIPINE 10 MG TAB ONE (07:45)
[2020-08-13] MEDS: AMLODIPINE 10 MG TAB PO SCH (09:00)
[2020-08-13] MEDS ORDERED: IRBESARTAN 150 MG TAB PO SCH (09:00)
--- NOTE | 2020-08-13 09:10 | RAD REPORT ---
EXAM DESCRIPTION: MRI - Brain Wo Cont - 08/13/2020 8:36 am CLINICAL HISTORY: AMS Headache, drowsiness COMPARISON: Head Brain Wo Cont dated 08/05/2018 TECHNIQUE: Multi-sequence, multiplanar MR imaging of the brain was performed without contrast. FINDINGS: No intracranial hemorrhage, hydrocephalus or extra-axial fluid collections.Moderate conflu ent T2 and FLAIR hyperintensity is seen in the periventricular and deep white matter. Moderate genera lized brain atrophy. No edema or shift of midline structures. No findings to suspect brain mass. DWI is negative for acute CVA. Midline structures are normally formed. Mild mucosal thickening is present of the paranasal sinuses. IMPRESSION: Negative for acute CVA or other acute intracranial process.
[2020-08-13] MEDS: carvediloL 6.25 MG TAB PO SCH (09:23)
[2020-08-13] MEDS ORDERED: PNEUMOCOCCAL VACCINE 0.5 ML IMVAC ONE (10:00)
[2020-08-13] MEDS ORDERED: HEPARIN 5000 UNIT/ML 1 ML VIAL ONE ×2 (12:33→12:34)
[2020-08-13] MEDS ORDERED: ZIPRASIDONE MESYLA 20 MG/VIAL IM PRN (12:48)
[2020-08-13] MEDS ORDERED: WATER FOR INJ,STERILE 10 ML IM PRN (12:48)
--- NOTE | 2020-08-13 17:19 | P.PN ---
Subjective Date of Service: 08/13/20 Chief Complaint: Hypertensive emergency Subjective: No new changes (overnight, troponin increased significantly, started on hep drip, cardio contacted. continues with confusion, not answering appropriately, responds with similar sentence despite different questions, not following commands.) Review of Systems is unable to be obtained Physical Examination - Vital Signs Temperature: 97.8 F Blood Pressure: 177/99 Pulse: 75 Respirations: 21 Pulse Ox (%): 96 Assessment & Plan Physician Review Additional Text: Physical exam Gen: NAD, confused HEENT: small ~3cm superficial laceration on R scalp, no surroudning erythema, no active bleed, no drainage, mild TTP, PERRL CV: regular rate and rhythm Pulm: diminished bilaterally (R>L), crackles at R base, nonlabored on room air Abd: soft, NTND Ext: 1-2+ pitting edema bilaterally to knees Neuro: confused, AAOx1, responds inappropriately to questions, hard of hearing, moves all extremities, no focal defecit Repetitive responses, does not follow commands Problem list HTN Emergency with encephalopathy NSTEMI Volume overload DEWEY on CKDIII, atrophic L kidney Carotid artery stenosis s/p CEA -continue ICU level of care, continue hypertensive medications, lower blood pressure slowly -altered mental status/acute encephalopathy likely secondary to hypertensive emergency -CT and MRI done, no acute CVA noted -cardiology consulted - reports receptionist/telephone operator is Dr. Bui and has been following with his BP over the years, son reports pt has "allergies to some BP meds" -troponin increase significantly up to 20s, patient is NPO and placed on heparin drip overnight -nephrology consulted for DEWEY / CKD, resistant HTN, unclear if renal disease is contributing -son reports pt takes losartan and clonidine - unsure of dosage Code: full VTE: heparin Dispo: anticipate dc in ~48-72hrs, pt lives at home alone - has caregiver that lives with him, but has been out of town for ~3 weeks son lives next door and checks on patient Time Spent Managing Pts Care (In Minutes): 35
[2020-08-13] MEDS ORDERED: LABETALOL 20 MG/4ML SYRINGE IV PRN (18:28)
[2020-08-13] MEDS ORDERED: HYDRALAZINE HCL 20 MG/ML VIAL IV ONE (18:45)
[2020-08-13] MEDS: carvediloL 12.5 MG TAB PO SCH (18:50)
[2020-08-13] MEDS ORDERED: HYDRALAZINE HCL 20 MG/ML VIAL ONE (19:05)
--- NOTE | 2020-08-14 00:16 | CON ---
Date of Consultation: 08/12/2020 Reason For Consultation: Hypertensive emergency. History Of Present Illness: This is an 85-year-old male history of hypertension, chronic kidney dise ase. He has only 1 kidney congenitally, presented with altered mental status. The patient has been on multiple antihypertensive agents, however blood pressure shot up to very high level to 266 and bec michelle very confused and altered. Then presented to the emergency room. The patient is a poor historia n and could not get any further history from him. Past Medical History: As outlined above in the HPI. Medications: Refer to reconciliation sheet for detailed list. Allergies: NO KNOWN DRUG ALLERGIES. Family History: No premature coronary artery disease or cancer. Social History: Does not smoke or drink. Does not use any drugs. Review of Systems: All systems reviewed and they were negative except what mentioned in the HPI. Physical Examination: Vital Signs: Reviewed. His systolic blood pressures in the 170s range. Head and Neck: Pupils are equal, reactive to light. Intact eye movements. No JVD. No cervical lym phadenopathy. Neck: Supple. Thyroid is not enlarged. Lungs: Clear to auscultation bilaterally. No rhonchi, rales, or crackles. No accessory muscle use. Heart: Regular rate and rhythm. No extra sounds. Abdomen: Soft, nontender. Bowel sounds positive. No organomegaly. No masses or hernia. No rigidi ty or rebound. Extremities: There is no edema, clubbing, cyanosis. Intact pulses. Skin: No rash was noted. Neurologic: Alert, awake, but confused. No focal deficits appreciated. Lymph Nodes: No cervical or inguinal lymphadenopathy. Investigations: Creatinine is 1.94. Sodium 131, hemoglobin 13.7. Assessment And Plan: 1.Altered mental status, likely due to hypertension induced encephalopathy. The patient is not able to give any history. I will recommend to continue nicardipine drip with a goal of systolic blood pr essure between 160 and 180 and resume home medications and adjust further as needed. Also I will rec ommend to evaluate the aorta with MRA to look for any major arteries dissection if it is feasible to be done. Patient will not be able to get contrast due to the advanced kidney disease. Please trend troponins and obtain an echocardiogram. Further recommendations accordingly. /MODL Voice ID: [id number] Report ID: [id number]
--- NOTE | 2020-08-14 00:31 | PN ---
Date of Progress Note: 08/13/2020 Subjective: The patient was seen by bedside. He continues to be confused, unable to offer any sympt oms. His blood pressure systolic is around 170 still. No complaints. His troponin peaked at 20. Physical Examination: Vital Signs: Reviewed. Head and Neck: Pupils are equal, reactive to light. Intact eye movements. No JVD. No cervical lym phadenopathy. Neck: Supple. Thyroid is not enlarged. Lungs: Clear to auscultation bilaterally. No rhonchi, rales, or crackles. No accessory muscle use. Heart: Regular rate and rhythm. No extra sounds. Abdomen: Soft, nontender. Bowel sounds positive. No organomegaly. No masses or hernia. No rigidi ty or rebound. Extremities: There is no edema, clubbing, cyanosis. Intact pulses. Skin: No rash was noted. Neurologic: Alert, awake with confusion. No focal deficits appreciated. Assessment And Plan: Non-ST elevation myocardial infarction. Troponin peaked at 20. The patient wa s started on heparin drip and aspirin to continue that. I had a long discussion with the family and the medical power of collections attorney and recommended coronary angiogram. However, due to the poor quality o f life and deteriorating condition and the mental status, they elected for no further invasive measur es at this point, unless his mental status completely clears. I feel it is reasonable and we will co ntinue to monitor. Recommend to start beta noé, metoprolol 25 mg twice a day and aspirin 81 mg d aily and continue heparin and please obtain a MRA of the aorta to evaluate the large vessels and rule out any possibility of dissection before any further workup is to be conducted. We discussed with the primary hospitalist. /SALMA Voice ID: [id number] Report ID: [id number]
--- NOTE | 2020-08-14 00:52 | PN ---
Date of Progress Note: 08/13/2020 Chief Complaint: Abnormal renal function. Subjective: This is an 85-year-old man with congenital solitary functioning kidney. The patient cam e to the hospital with altered mental status and generalized weakness. He was found to have acute on chronic kidney injury. Previously, baseline creatinine level in July 2018 was ranging from 1.6 to 1.8. The patient is confused. Initially, he was found to have malignant hypertension. CT scan of t he head was negative for acute changes. He was found to have hypertensive emergency with acute decom pensated congestive heart failure. Serum creatinine level has not improved over last 48 hours. The patient is undergoing workup for hypertensive crisis. He has prior workup done for hypertension incl uding serum renin, aldosterone, negative urine metanephrine. Review of Systems: The patient remains confused. Physical Examination: Lungs: Clear to auscultation bilaterally. Heart: S1, S2. Abdomen: Soft, benign. Extremities: No edema. Impression And Plan: 1.Chronic kidney injury, congenital solitary functioning kidney, uncontrolled hypertension, carotid artery stenosis, status post left carotid endarterectomy. The patient has overt proteinuria. The pa tient may need renal biopsy when blood pressure is stable. 2.Hypertension, hypertensive emergency, acute congestive heart failure. Continue diuretic. He is o n Cardene drip. The patient was started on angiotensin receptor noé. He will continue amlodipin e and carvedilol. Renal artery Doppler is pending for evaluation of possible renal artery stenosis and nephrotic range proteinuria. The patient may need a kidney biopsy when stable. SUNSHINE/SALMA Voice ID: [id number] Report ID: [id number]
[2020-08-14 03:35] LABS: RPR (Rapid Plasma Reagin) NON-REACT (NON-REACT)
[2020-08-14 05:09] LABS: Hematocrit 34.7 % (39.6-49.0); RBC Red Blood Cell Count 3.78 M/uL (4.33-5.43)
[2020-08-14 05:10] LABS: Absolute Lymphocytes (CBC) 0.8 K/uL (0.7-4.9); Basophils % 0.4 % (0-1.3); MPV 9.3 fL (7.6-11.3)
[2020-08-14 05:21] LABS: Albumin 3.1 g/dL (3.4-5.0); Bilirubin Total 1.8 mg/dL (0.2-1.0); Magnesium 2.2 mg/dL (1.8-2.4); Potassium 4.1 mmol/L (3.5-5.1)
[2020-08-14] MEDS: carvediloL 12.5 MG TAB PO SCH (06:10)
[2020-08-14] MEDS ORDERED: carvediloL 6.25 MG TAB ONE ×2 (06:22→18:04)
[2020-08-14] MEDS ORDERED: HEPARIN/D5W 25,000 UNIT/500 ML BAG IV ONE (06:56)
[2020-08-14] MEDS: IRBESARTAN 150 MG TAB PO SCH (07:41)
[2020-08-14] MEDS: AMLODIPINE 10 MG TAB PO SCH (07:41)
[2020-08-14] MEDS ORDERED: AMLODIPINE 5 MG TAB ONE (07:47)
[2020-08-14] MEDS ORDERED: NICARDIPINE HCL 25 MG in NA CHLORIDE 0.9% 240 ML IV PRN (09:16)
--- NOTE | 2020-08-14 09:23 | PN ---
Subjective: Mr. Cox has been admitted with a hypertensive encephalopathy that continued to worsen and his blood pressure is better controlled. He had elevated troponin. He is on heparin . I think his troponin elevation was secondary to the hypertension, I think the heparin will be disc ontinued. I think he needs to have Neurology follow him. Aggressive blood pressure control, has had negative cardiac workup in the past. I would continue to follow him. I will discuss the case with the admitting physician. RAINE/SALMA Voice ID: [id number] Report ID: [id number]
[2020-08-14] MEDS: THIAMINE HCL 100 MG TABLET PO SCH (10:00)
[2020-08-14] MEDS ORDERED: cloNIDine HCL 0.1 MG TAB ONE ×2 (13:57→20:09)
[2020-08-14] MEDS: HYDRALAZINE HCL 25 MG TABLET PO SCH ×2 (14:28→20:37)
[2020-08-14] MEDS: cloNIDine HCL 0.1 MG TAB PO SCH ×2 (14:28→20:36)
--- NOTE | 2020-08-14 14:38 | RAD REPORT ---
EXAM DESCRIPTION: - CP - 08/14/2020 2:23 pm CLINICAL HISTORY: carotid artery stenosis Headache, drowsiness COMPARISON: Head C Spine Mpr Wo Con dated 08/12/2020; Carotid Artery Bilateral dated 08/05/2018 TECHNIQUE: Real-time sonographic evaluation of both carotid systems was performed. Doppler interroga tion was performed with waveform tracing bilaterally. FINDINGS: Normal high resistance waveforms are noted in both external carotid arteries. The common c arotid arteries and internal carotid arteries show normal low resistance waveforms. Heavy hard plaquing is seen in both carotid bulbs. There is turbulent flow through the areas of steno sis in both carotid bulbs bilaterally. Peak systolic velocity is elevated involving the proximal righ t ICA measuring 120 cm/second. No significant left-sided ICA velocity measurement. Based on NASCET cr iteria, stenosis estimated at 80% involving the right carotid bulb and 80-90% involving the left wolfe tid bulb. Antegrade flow seen in both vertebral arteries. IMPRESSION: Heavy hard plaquing is present in both carotid bulbs. Findings result in 80% to 80-90% stenosis of both carotid bulbs based on NASCET criteria. Consider fo llowup MRA of the neck vessels for further assessment.
--- NOTE | 2020-08-14 15:04 | PN ---
Date of Progress Note: 08/14/2020 Subjective: This is an 85-year-old gentleman with significant past medical history of solitary kidney secondary to congenital, hypertension, carotid artery stenosis. The patient came with CVA. The patient's baseline creatinine is around 1.8. Physical Examination: Vital Signs: Blood pressure 164/82, pulse of 61, afebrile. The patient had good urine output. Chest: Clear to auscultation. Heart: S1, S2. Regular. Abdomen: Soft, nontender. Extremities: No edema. Neurologic: Alert. Follows command. No focality. Laboratory Data: WBC 9.7, H and H 11.9/34.7, platelets 172. Sodium 134, potassium 4.1, bicarb 19, BUN 35, creatinine 1.7, GFR of 38, calcium 8.5, magnesium 2.2. Troponin 19. Vitamin D 28. Current Medications: The patient on includes; 1. Carvedilol. 2. Amlodipine. 3. Hydralazine 25, started today. 4. Irbesartan 300 mg. 5. Nicardipine. Assessment And Plan: 1. 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 I am going to continue to monitor. 2. Hypertension, not controlled. We will just add hydralazine. Continue irbesartan 300 and we will follow up the patient. 3. Cerebrovascular accident, non-ST elevation myocardial infarction as by Cardiology. 4. Acidosis. We will start the patient on oral sodium bicarb drip. 5. Non-ST elevation myocardial infarction/hypertension, not controlled to rule out dissection. The patient is okay to proceed with MRA with gadolinium given the current GFR. Please avoid CT with iodine contrast. time spent examined the patient face to face s discussed with the patient placed order discussing the case with other team supervisor including nurses , discussing with other specialist include a hospitalist 45 min BELA/SALMA Voice ID: [id number] Report ID: [id number] MTDD
--- NOTE | 2020-08-14 15:12 | P.PN ---
Subjective Date of Service: 08/14/20 Chief Complaint: Hypertensive emergency Patient woke up during my examination and was verbal but confused. Blood pressure was elevated this morning but has improved to the 160s. Patient is an declines any image with contrast including MRI/MRA. Physical Examination - Vital Signs Temperature: 98.0 F Blood Pressure: 184/93 Pulse: 75 Respirations: 20 Pulse Ox (%): 96 - Physical Exam General: In no apparent distress, Confused, Other (Awake) HEENT: PERRLA, Mucous membr. moist/pink Neck: JVD not distended Respiratory: Clear to auscultation bilaterally, Normal air movement Cardiovascular: No edema, Regular rate/rhythm, Normal S1 S2, No murmurs Gastrointestinal: Soft and benign, Non-distended Musculoskeletal: No swelling, No tenderness Integumentary: No rashes Neurological: Other (No focal motor deficit.) Assessment And Plan Physician Review: Patient Assessed, Agree with Above Assessment and Plan Physician Review Additional Text: Problem list HTN Emergency with encephalopathy NSTEMI Volume overload DEWEY on CKDIII, atrophic L kidney Carotid artery stenosis s/p CEA -continue ICU level of care, continue hypertensive medications. Titrate to a target of SBP<140. -altered mental status/acute encephalopathy probably secondary to hypertensive emergency. No acute CVA and no evidence of infection. -troponin increase significantly up to 20s, patient is NPO and placed on heparin drip for NSTEMI. -cardiology input appreciated. Dr. Medina Deedee cardiac catheterization but son declined and wants to pursue only medical treatment. -Dr. Medina also recommended MRA of the aorta to rule out dissection. Son declined and does not want any imaging with contrast which could make his kidney numbers worse. I explained to him MRI of contrast may not affect the kidney. Son still declined MRA. -nephrology consulted for DEWEY / CKD, resistant HTN, unclear if renal disease is contributing -nephrology input appreciated. Per nephrology need to rule out renal artery stenosis and nephrotic range proteinuria. -neurochecks. - Code: full VTE: heparin pt lives at home alone - has caregiver that lives with him, but has been out of town for ~3 weeks son lives next door and checks on patient
[2020-08-14] MEDS ORDERED: carvediloL 25 MG TAB PO SCH (18:00)
[2020-08-14] MEDS ORDERED: THIAMINE HCL 100 MG TABLET ONE (18:04)
[2020-08-14 18:44] VITALS: BMI 25.8
[2020-08-14] MEDS: carvediloL 25 MG TAB PO SCH (19:00)
[2020-08-14] MEDS: SODIUM BICARB 325 MG TAB PO SCH (20:37)
[2020-08-15] MEDS ORDERED: LABETALOL 20 MG/4ML SYRINGE IV ONE (04:28)
[2020-08-15 04:46] LABS: Hematocrit 37.1 % (39.6-49.0); RBC Red Blood Cell Count 4.01 M/uL (4.33-5.43)
[2020-08-15 04:47] LABS: Absolute Lymphocytes (CBC) 0.9 K/uL (0.7-4.9); Basophils % 0.3 % (0-1.3); Lymphocytes % 9.7 % (15.3-44.8); MPV 8.8 fL (7.6-11.3)
[2020-08-15] MEDS: carvediloL 25 MG TAB PO SCH (06:00)
[2020-08-15] MEDS ORDERED: cloNIDine HCL 0.1 MG TAB ONE (07:37)
[2020-08-15] MEDS ORDERED: AMLODIPINE 10 MG TAB ONE (07:37)
[2020-08-15] MEDS ORDERED: VITAMIN D 1000 UNIT TAB ONE (07:38)
[2020-08-15] MEDS ORDERED: THIAMINE HCL 100 MG TABLET ONE (07:38)
[2020-08-15 07:42] LABS: Magnesium 2.1 mg/dL (1.8-2.4); Phosphorus 2.7 mg/dL (2.5-4.9)
[2020-08-15] MEDS ORDERED: MAGNESIUM SULFATE 1 gm IVPB 1 GM/100 ML BAG IV ONE (08:00)
[2020-08-15] MEDS: cloNIDine HCL 0.1 MG TAB PO SCH (08:11)
[2020-08-15] MEDS: SODIUM BICARB 325 MG TAB PO SCH (08:15)
[2020-08-15] MEDS: IRBESARTAN 150 MG TAB PO SCH (08:15)
[2020-08-15] MEDS: HYDRALAZINE HCL 25 MG TABLET PO SCH (08:16)
[2020-08-15] MEDS: THIAMINE HCL 100 MG TABLET PO SCH (08:17)
[2020-08-15] MEDS: AMLODIPINE 10 MG TAB PO SCH (08:17)
[2020-08-15] MEDS ORDERED: VITAMIN D 5,000 UNIT CAP PO SCH (09:00)
[2020-08-15] MEDS ORDERED: cloNIDine HCL 0.1 MG TAB PO SCH (09:00)
[2020-08-15 12:23] VITALS: TEMP 98.1
[2020-08-15 12:25] VITALS: O2SAT 97
[2020-08-15] MEDS ORDERED: HYDRALAZINE HCL 25 MG TABLET PO SCH (14:00)
--- NOTE | 2020-08-15 14:17 | PN ---
Date of Progress Note: 08/15/2020 Subjective: The patient was admitted with acute kidney injury. The patient was doing better. Mental status back to baseline. Objective: Vital Signs: Blood pressure 158/89, pulse of 72. Had good urine output. Chest: Clear to auscultation. Heart: S1 and S2, regular. Abdomen: Soft, nontender. Extremities: No edema. Neuro: Alert. No focality. Laboratory Data: H and H 12.6/37.1. Sodium 132, potassium 4, bicarb 20, BUN 41, creatinine 1.7, calcium 8.1. Current Medications: The patient on its include: 1. Eliquis. 2. Heparin. 3. Amlodipine 10. 4. Carvedilol 25 b.i.d. 5. Hydralazine 25 t.i.d. 6. Irbesartan 300. 7. Sodium bicarb 650 b.i.d. 8. Magnesium oxide. Assessment/plan: 1. Chronic kidney disease, stage 3 secondary to solitary kidney. Hypertension nephrosclerosis, stable on baseline. We will continue current medication. 2. Hypertension, not controlled. I agree with adding clonidine. We will increase hydralazine to 50 t.i.d. We will follow up. 3. Cerebrovascular accident. As by cardiology . time spent examined the patient face to face s discussed with the patient placed order discussing the case with other count team clerk including nurses , discussing with other specialist include a hospitalist 45 min CIRO Voice ID: [id number] Report ID: [id number] JENNIFER
[2020-08-15 15:10] VITALS: BP 152/75
[2020-08-15] MEDS ORDERED: HYDRALAZINE HCL 10 MG TABLET ONE (15:20)
--- NOTE | 2020-08-15 16:22 | P.DS ---
Admission Date: 08/12/20 Discharge Date: 08/15/20 Disposition: DC HOME/HOME HEALTH CARE Discharge Condition: FAIR Reason for Admission: Hypertensive emergency Brief History of Present Illness: At 5-year-old gentleman with a history of hypertension, atrial fibrillation and Eliquis was brought to the emergency due to altered mental status. Patient blood pressure was noted to be severely high. Son states patient sister blood pressure is usually in the 170s and reported medication compliance. Patient was confused in the ED and could not provide any history. CT head was unremarkable. His initial troponin was negative. Patient was started on nicardipine drip and hospitalized for further management. Hospital Course: Patient admitted to the ICU on nicardipine drip. Troponin trended up to 24. He was diagnosed with an NSTEMI and Cardiology consulted to assist with management. Patient was treated with heparin drip. He was also put on multiple antihypertensives including clonidine, hydralazine, irbesartan and amlodipine to control his blood pressure. Stroke workup with MRI of the brain and carotid doppler which were unremarkable. Patient is also seen by nephrology who assisted with management of his hypertension. Patient's hypertension was considered refractory. Renal artery Doppler did not show any renal artery stenosis. His systolic blood pressure improved to 150 to 160s on the current antihypertensives. Patient was initially unresponsive but his mental status gradually improved. Today patient is still confused but interacting meaningfully and has memory issues. Cardiology recommended MRA of the aorta to rule out aortic dissection. Patient's son declined any imaging with contrast due to his concern for worsening renal function. He therefore declined MRA or CT dissection study. Patient was seen by PT and he was able to ambulate several feet with a walker. Patient has memory issues and other moments recommend 24 x 7 care at home. Son requested for patient to be discharged to home per his father's request. They have been informed that he will need a 24 x 7 care. He is discharged with the current antihypertensive regimen and advised to be compliant with his medication. He will need to follow with Nephrology as an outpatient within the next couple of weeks. Vital Signs/Physical Exam: Temp Pulse Resp BP Pulse Ox 98.1 F 70 20 152/75 H 96 08/15/20 12:00 08/15/20 14:00 08/15/20 14:00 08/15/20 14:00 08/15/20 14:00 General: In no apparent distress, Confused, Other (Awake) HEENT: PERRLA, Mucous membr. moist/pink, EOMI, Sclerae nonicteric Neck: Supple, JVD not distended Respiratory: Clear to auscultation bilaterally, Normal air movement Cardiovascular: No edema, Normal S1 S2, Irregular heart rate/rhythm Gastrointestinal: Soft and benign, Non-distended, No tenderness Musculoskeletal: No swelling, No tenderness Integumentary: No rashes, No erythema Neurological: Normal strength at 5/5 x4 extr, Cranial nerves 3-12 intact Laboratory Data at Discharge: WBC 9.60 K/uL (4.3-10.9) 08/15/20 04:34 Hgb 12.6 g/dL (13.6-17.9) L 08/15/20 04:34 Hct 37.1 % (39.6-49.0) L 08/15/20 04:34 Plt Count 192 K/uL (152-406) 08/15/20 04:34 PT 13.0 SECONDS (9.5-12.5) H 08/12/20 01:53 INR 1.13 08/12/20 01:53 APTT Cancelled 08/15/20 11:00 Sodium 132 mmol/L (136-145) L 08/15/20 04:34 Potassium 4.0 mmol/L (3.5-5.1) 08/15/20 04:34 BUN 41 mg/dL (7-18) H 08/15/20 04:34 Creatinine 1.70 mg/dL (0.55-1.3) H 08/15/20 04:34 Glucose 108 mg/dL (74-106) H 08/15/20 04:34 Phosphorus 2.7 mg/dL (2.5-4.9) 08/15/20 04:34 Magnesium 2.1 mg/dL (1.8-2.4) 08/15/20 04:34 Total Bilirubin 1.8 mg/dL (0.2-1.0) H 08/14/20 04:46 AST 97 U/L (15-37) H 08/14/20 04:46 ALT 30 U/L (12-78) 08/14/20 04:46 Alkaline Phosphatase 92 U/L (45-117) 08/14/20 04:46 Troponin I 19.70 ng/mL (0.0-0.045) H* 08/13/20 17:40 Triglycerides 42 mg/dL (<150) 08/13/20 07:56 Cholesterol 145 mg/dL (<200) 08/13/20 07:56 HDL Cholesterol 71 mg/dL (40-60) H 08/13/20 07:56 Cholesterol/HDL Ratio 2.04 08/13/20 07:56 Home Medications: Amlodipine [Norvasc*] 10 mg PO DAILY #30 tab 08/15/20 Apixaban [Eliquis] 2.5 mg PO BID #60 08/15/20 Cholecalciferol (Vitamin D3) [Vitamin D 5,000 IU Cap*] 5,000 unit PO DAILY #30 cap 08/15/20 Hydralazine HCl 50 mg PO TID #90 tablet 08/15/20 Na Bicarb Tab [Sodium Bicarb 325 MG Tab*] 650 mg PO BID #120 tab 08/15/20 Thiamine HCl [Vitamin B-1*] 100 mg PO DAILY #30 tablet 08/15/20 carvediloL [Coreg*] 25 mg PO BID 6AM 6PM #60 tab 08/15/20 cloNIDine HCL [Catapres*] 0.2 mg PO TID #180 tab 08/15/20 New Medications: cloNIDine HCL [Catapres*] 0.2 mg PO TID #180 tab carvediloL [Coreg*] 25 mg PO BID 6AM 6PM #60 tab Apixaban [Eliquis] 2.5 mg PO BID #60 Hydralazine HCl 50 mg PO TID #90 tablet Amlodipine [Norvasc*] 10 mg PO DAILY #30 tab Na Bicarb Tab [Sodium Bicarb 325 MG Tab*] 650 mg PO BID #120 tab Thiamine HCl [Vitamin B-1*] 100 mg PO DAILY #30 tablet Cholecalciferol (Vitamin D3) [Vitamin D 5,000 IU Cap*] 5,000 unit PO DAILY #30 cap Physician Discharge Instructions: PROBLEM: HTN GOAL: Clear understanding of disease process INSTRUCTIONS: Follow up with your primary doctor in 1 week. Take all medications as pr escribed. Come back to emergency room if symptoms persist or worsen. Call [phone] if you have any questions regarding your hospital stay. Okay to discharge home and DC IV. Your medications were [facility] into [facility]. Diet: AHA Activity: Fall precautions [employer] Services Needed: None Name of Company: Date or Referral: IMMUNIZATION Influenza Vaccine Indicated: No Influenza Vaccine Given: Date Given: Pneumonia Vaccine Indicated: Refused Pneumonia Vaccine Given: Date Given: Diet: AHA Activity: Fall precautions Followup: Rory Bui MD [ACTIVE - CAN ADMIT] - 08/20/20 1:00 pm (Call for appointment.) Ankita Corbett DO, DO [Primary Care Provider] - 1-2 Weeks (Call for appointment) Lyle Arroyo MD [ACTIVE - CAN ADMIT] - 1-2 Weeks Time spent managing pt's care (in minutes): 40
[2020-08-15] MEDS ORDERED: APIXABAN 2.5 MG TABLET PO SCH (21:00)
--- NOTE | 2020-08-16 10:55 | PN ---
Date of Progress Note: 08/15/2020 Subjective: Admitted, has been followed for hypertensive encephalopathy. Mr. Cox's encephalopath y has improved dramatically. He is ambulating. He is alert and oriented x3. Wants to go home. His blood pressure is much better controlled. He is in sinus rhythm. Case was discussed with primary c are physician, admitting physician. The patient can go home from my standpoint. He is on a signific ant amount of antihypertensive medication including amlodipine, hydralazine, clonidine, diuretics. I am comfortable with Mr. Cox to go home. I discussed the case with him and his son. He will see me in the office at 1 p.m. next week on Thursday and I will follow up on him as an outpatient on a regu lar basis. RAINE/SALMA Voice ID: [id number] Report ID: [id number]
[2020-08-16 12:53] LABS: HIV AG/AB 4TH GEN Non-reactive (Non-reactive)
[2020-08-16 20:57] LABS: Albumin, (SPE) 3.7 g/dL (3.8-4.8); Alpha-1-Globulins 0.3 g/dL (0.2-0.3); Alpha-2-Globulins 0.7 g/dL (0.5-0.9); INTERPRETATION REPORT
[2020-08-17 23:11] LABS: HBsAG Nonreactive (Nonreactive)
== END 2020-08-15 17:23 | disposition home or self-care (01) | DRG 281 ==
LOC: ER 08:24 → ERHOLD 10:44
PROVIDERS: ADMIT Hospitalist; ATTEND Internal Medicine
DX: I16.1 Hypertensive emergency (principal); I21.4 Non-ST elevation (NSTEMI) myocardial infarction; I67.4 Hypertensive encephalopathy; E87.1 Hypo-osmolality and hyponatremia; N17.9 Acute kidney failure, unspecified; E87.2 Acidosis; I12.9 Hypertensive chronic kidney disease with stage 1 through stage 4 chronic kidney disease, or unspecified chronic kidney disease; N18.32 Chronic kidney disease, stage 3b; E87.70 Fluid overload, unspecified; I48.91 Unspecified atrial fibrillation; I65.29 Occlusion and stenosis of unspecified carotid artery; Z79.82 Long term (current) use of aspirin; Z79.899 Other long term (current) drug therapy; Z87.891 Personal history of nicotine dependence; Z60.2 Problems related to living alone; Z79.01 Long term (current) use of anticoagulants; Z20.822 Contact with and (suspected) exposure to COVID-19
CPT/HCPCS: 36415; 70450; 70551; 71045; 72125; 80048; 80053; 80061; 80076; 81001; 81003; 82140; 82306; 82570; 82607; 83036; 83735; 83880; 83883; 83935; 84100; 84132; 84156; 84165; 84300; 84484; 85025; 85610; 85730; 86021; 86038; 86334; 86592; 86704; 86706; 86803; 87340; 87389; 93005; 93880; 94760; 96365; 96375; 97112; 97116; 97161; 99285; J0360; J1644; J1650; J3486; J7030; J7050; U0003

== ENCOUNTER 2021-06-26 12:38 | Inpatient (IN) | payer OTHER ==
--- OUTSIDE RECORDS SUMMARY | 2021-06-26 12:42 | XMS REPORT | Continuity of Care Document ---
:1935 Author Organization [facility] t Address [address] [place] [address] Care Team Providers Name Role Phone CHAPARRO HUGHES Attending Clinician Unavailable CHAPARRO HUGHES Admitting Clinician Unavailable Problems This patient has no known problems. Allergies, Adverse Reactions, Alerts Allergy Allergy Status Severity Reaction(s) Onset Inactive Treating Comm ents Source Name Type Date Date Clinician AMLODIPI Allergy Active High Hives [facility] Medications This patient has no known medications. Procedures This patient has no known procedures. Results Test Description Test Time Test Comments Results Result Comments Source BODY FLUID CULTURE + GRAM STAIN 2018-09-09 12:08:00 Test Item Value Reference Range Interpretation Comme nts CULTURE (BEAKER) (test code = 1095) No growth GRAM STAIN RESULT (BEAKER) (test code = 1123) No WBCs GRAM STAIN RESULT (BEAKER) (test code = 55485) No organisms seen RAD, CHEST, 1 VIEW, NON [id number] 12:42:00Reason for exam:->pleural effusionShould this be performed at the bedside?->YesFINAL REPORT INDICATION: pleural effusion COMPARISON:September 06 TECHNIQUE: Chest radiograph, single view, portable technique. FINDINGS / IMPRESSION: No pleural effusion is demonstrated. No consolidation, pneumothorax, or pulmonary edema. Heart shadow is prominent. Osseous structures unremarkable. Signed: Edgar Lee Verified Date/Time: 09/08/2018 12:42:40 Reading Location: [facility] C013W Consult Reading Room Electronically signed by: EDGAR LEE M.D. on09/08/2018 12:42 [id number] 05:01:00 Test Item Value Reference Range Interpretation Comments MAGNESIUM (BEAKER) (test code = 1.5 mg/dL 1.6-2.6 L 627) BASIC METABOLIC [id number] 05:01:00 Test Item Value Reference Range Interpretation [...] PATIEN TS. CBC W/PLT COUNT & AUTO [id number] 04:41:00 Test Item Value Reference Range Interpretation [...] 0-1 PERCENT (BEAKER) (test code = 2801) [id number] 15:48:00Medical Cytology Report Case: [id number] Authorizing Provider: Giancarlo Joseph MD Collected: 09/06/2018 1551 Ordering Location: [address] Received: 09/07/2018 1302 Service Pathologist: Ervin Crawford MD Specimen: Pleural, Right RIGHT PLEURAL FLUID (CYTOSPINS): - NEGATIVE FOR MALIGNANCY - Inflammation present Signing Pathologist Direct Phone Line: [phone] signed by Ervin Crawford MD on 09/07/2018 at 3:48 [id number] pleural effusion; HTN, HLD, afib, CKD 3/4 who presented on 08/30 for elective carotid endarterectomy for symptomatic left carotid stenosis 50-60%RIGHT PLEURAL FLUIDPrepared 4 cytospins from 1100 ml yellow fluidCollected: [id number]: [id number] [facility], Department of Pathology, [address] [place] [address], [facility], [facility] of [facility], [address] [place] [address], [facility], Department of Pathology, [address] [place] [address], ITJXZITOUK, [id number] 07:16:00 Test Item Value Reference Range Interpretation Comments OSMOLALITY, SERUM 271 mOsm/kg 275-295 L Performed at [facility] ([facility]) (test Laboratories code = 615) OSMOLALITY, [id number] 07:15:00 Test Item Value Reference Range Interpretation Comments OSMOLALITY URINE 221 mOsm/kg 40-1,400 Performed a t [facility] ([employer]) (test code Laborato mey = 614) [id number] 04:41:00 Test Item Value Reference Range Interpretation Comments MAGNESIUM (BEAKER) (test code = 1.7 mg/dL 1.6-2.6 627) BASIC METABOLIC [id number] 04:41:00 Test Item Value Reference Range Interpretation [...] PATIEN TS. CBC W/PLT COUNT & AUTO [id number] 04:10:00 Test Item Value Reference Range Interpretation [...] (test code = 2801) CT, CHEST, WITHOUT [id number] 21:27:00FINAL REPORT CT scan of the chest. [...] needed in a low-risk patient. Signed: Garret Montero MDReport Verified Date/Time: 09/06/2018 21:27:37 Reading Location: [address] Consult Reading Room U/S, RENAL WITH [id number] 21:10:00Reason for exam:->renal artery stenosisFINAL REPORT Renal [...] on the left side. Signed: Garret Montero Verified Date/Time: 09/06/2018 21:10:02 Reading Location: [facility] C013W Consult Reading Room U/S, THORACENTESIS 2018-09-06 17:31:00Laterality?->RightReason [...] 1% lidocaine anesthesia was administered. A 4 Malaysian catheter was advanced into the pleural cavity and 1500 mL of clear yellow fluid was removed. The catheter was removed without immediate complication. Samples were sent for analysis. IMPRESSION: Uncomplicated ultrasound-guidedright thoracentesis with 1500 mL of fluid removed. Signed: Parth Tanner Verified Date/Time: 09/06/2018 17:31:20 Reading Location: [address] Ultrasound Reading Room Electronically signedby: PARTH TANNER MD on 09/06/2018 05:31 PMRAD, CHEST, 1 VIEW, NON [id number] 17:27:00Reason for exam:->thoracentesisShould this be performed at [...] No acute bony abnormality. Signed: Parth Tanner MDReport Verified Date/Time: 09/06/2018 17:27:36 Reading Location: [address] Ultrasound Reading Room BODY FLUID CELL COUNT WITH [id number] 17:06:00 Test Item Value Reference Range Interpretation [...] code = 2873) LACTATE DEHYDROGENASE (LDH), BODY [id number] 16:51:00 Test Item Value Reference Range Interpretation Comments LACTATE DEHYDROGENASE FLUID < U/L Light's criteria (BEAKER) (test code = 634) identifies effusions if one or more are pre Absence of reference range indicates that normals have not been defined.Assay performance has not been validated for this type of specimen.PLeural fluidPleural fluidPleural fluidPROTEIN, BODY [id number] 16:51:00 Test Item Value Reference Range Interpretation Comments PROTEIN FLUID (BEAKER) 2.0 g/dL Light's criteria identifies (test code = 579) effusions if one or more are pre Absence of reference range indicates that normals have not been defined.Assay performance has not been validated for this type of specimen.PLeural fluidPleural fluidPleural fluidGLUCOSE, BODY [id number] 16:51:00 Test Item Value Reference Range Interpretation Comments GLUCOSE, BODY FLUID (BEAKER) (test 128 mg/dL 70-110 H code = 1528) Absence of reference range indicates that normals have not been defined.Assay performance has not been validated for this type of specimen.PLeural fluidPleural fluidPleural fluidPH, BODY [id number] 16:46:00 Test Item Value Reference Range Interpretation Comments PH, BODY FLUID (BEAKER) (test code = 7.72 1530) RAD, CHEST, 1 VIEW, NON [id number] 16:35:00Reason for exam:->Right thoracentesisShould this be performed [...] No acute bony abnormality. Signed: Parth Tanner MDReport Verified Date/Time: 09/06/2018 16:35:40 Reading Location: [facility] P006J Ultrasound Reading Room PROTHROMBIN [id number] 10:30:00 Test Item Value Reference Range Interpretation Comments PROTIME (BEAKER) (test code = 14.4 seconds 11.7-14.7 759) INR (BEAKER) (test code = 370) 1.1 <=5.9 RECOMMENDED COUMADIN/WARFARIN INR THERAPY RANGESSTANDARD DOSE: 2.0 - 3.0 Includes: PROPHYLAXIS forvenous thrombosis, systemic embolization; TREATMENT for venous thrombosis and/or pulmonary embolus.HIGH RISK: Target INR is 2.5-3.5 for patients with mechanical heart valves.[id number] 06:23:00 Test Item Value Reference Range Interpretation Comments MAGNESIUM (BEAKER) (test code = 1.7 mg/dL 1.6-2.6 627) BASIC METABOLIC [id number] 06:23:00 Test Item Value Reference Range Interpretation [...] PATIEN TS. CBC W/PLT COUNT & AUTO [id number] 05:01:00 Test Item Value Reference Range Interpretation [...] 0-1 PERCENT (BEAKER) (test code = 2801) [id number] 08:33:00 Test Item Value Reference Range Interpretation Comments MAGNESIUM (BEAKER) (test code = 1.8 mg/dL 1.6-2.6 627) BASIC METABOLIC [id number] 08:33:00 Test Item Value Reference Range Interpretation [...] PATIEN TS. CBC W/PLT COUNT & AUTO [id number] 05:30:00 Test Item Value Reference Range Interpretation [...] PERCENT (BEAKER) (test code = 2801) POCT-GLUCOSE [id number] 21:27:00 Test Item Value Reference Range Interpretation Comments POC-GLUCOSE METER 124 mg/dL 70-110 H TESTED AT [place] [address] [facility] (test code = [address] 1538) [address] POCT-GLUCOSE [id number] 17:49:00 Test Item Value Reference Range Interpretation Comments POC-GLUCOSE METER 111 mg/dL 70-110 H TESTED AT [place] [address] [facility] (test code = [address] 1538) [address] POCT-GLUCOSE [id number] 12:53:00 Test Item Value Reference Range Interpretation Comments POC-GLUCOSE METER 150 mg/dL 70-110 H TESTED AT [place] [address] (BEAKER) (test code = LOLI Strange [facility] 1538) [address] [id number] 09:38:00 Test Item Value Reference Range Interpretation Comments MAGNESIUM (BEAKER) (test code = 1.8 mg/dL 1.6-2.6 627) BASIC METABOLIC [id number] 09:38:00 Test Item Value Reference Range Interpretation [...] NOT APPLICABLE FOR DIALYSIS PATIEN TS. POCT-GLUCOSE [id number] 08:29:00 Test Item Value Reference Range Interpretation Comments POC-GLUCOSE METER 107 mg/dL 70-110 TESTED AT [facility] 6720 (BEAKER) (test code = [facility] Alie [facility] 1538) [address] CBC W/PLT COUNT & AUTO [id number] 04:36:00 Test Item Value Reference Range Interpretation [...] (test code = 2801) RAD, CHEST, 2 [id number] 22:22:00Reason for exam:->sobShould this be performed at [...] pneumothorax or acute bony abnormality. Signed: Ricci Conneport Verified Date/Time: 09/03/2018 22:22:15 Reading Location: [address] Reading Room POCT-GLUCOSE [id number] 21:33:00 Test Item Value Reference Range Interpretation Comments POC-GLUCOSE METER 163 mg/dL 70-110 H TESTED AT [facility] 67 ([facility]) (test code = [facility] 1538) [address] POCT-GLUCOSE [id number] 18:08:00 Test Item Value Reference Range Interpretation Comments POC-GLUCOSE METER 202 mg/dL 70-110 H TESTED AT [place] [address] ([facility]) (test code = [facility] 1538) [address] [id number] 17:40:00 Test Item Value Reference Range Interpretation [...] 2.5-3.5 for patients with mechanical heart valves.PROTHROMBIN [id number] 17:39:00 Test Item Value Reference Range Interpretation Comments PROTIME (BEAKER) (test code = 13.9 seconds 11.7-14.7 759) INR (BEAKER) (test code = 370) 1.0 <=5.9 RECOMMENDED COUMADIN/WARFARIN INR THERAPY RANGESSTANDARD DOSE: 2.0 - 3.0 Includes: PROPHYLAXIS forvenous thrombosis, systemic embolization; TREATMENT for venous thrombosis and/or pulmonary embolus.HIGH RISK: Target INR is 2.5-3.5 for patients with mechanical heart valves.POCT-GLUCOSE [id number] 14:56:00 Test Item Value Reference Range Interpretation Comments POC-GLUCOSE METER 110 mg/dL 70-110 TESTED AT [facility] 6720 (BEAKER) (test code = [facility] Alie [facility] 1538) [address] POCT-GLUCOSE [id number] 07:48:00 Test Item Value Reference Range Interpretation Comments POC-GLUCOSE METER 100 mg/dL 70-110 TESTED AT [facility] 6720 (BEAKER) (test code = [facility] 1538) [address] [id number] 05:26:00 Test Item Value Reference Range Interpretation Comments MAGNESIUM (BEAKER) (test code = 1.9 mg/dL 1.6-2.6 627) BASIC METABOLIC [id number] 05:26:00 Test Item Value Reference Range Interpretation [...] S NOT APPLICABLE FOR DIALYSIS PATIEN TS. [id number] 05:24:00 Test Item Value Reference Range Interpretation Comments CORTISOL, TOTAL (BEAKER) (test 19.5 ug/dL 3.7-19.4 H code = 2755) CBC W/PLT COUNT & AUTO [id number] 04:46:00 Test Item Value Reference Range Interpretation [...] 2801) RAD, CHEST, PA OR AP, 1 [id number] 00:40:00Reason for exam:->r/o infiltratesFINAL REPORT History: Shortness [...] edema or acute bony abnormality. Signed: Ricci Conn MDReport Verified Date/Time: 09/03/2018 00:40:23 Reading Location: [address] Reading Room POCT-GLUCOSE [id number] 23:13:00 Test Item Value Reference Range Interpretation Comments POC-GLUCOSE METER 124 mg/dL 70-110 H TESTED AT [facility] 67[address] (BEAKER) (test code = LOLI Strange [facility] 1538) [address] SODIUM, RANDOM [id number] 18:20:00 Test Item Value Reference Range Interpretation Comments SODIUM URINE (BEAKER) (test code = 23 meq/L 243) Reference Range: No NormalsBASIC METABOLIC [id number] 17:50:00 Test Item Value Reference Range Interpretation [...] NOT APPLICABLE FOR DIALYSIS PATIEN TS. TISSUE [id number] 16:34:00Surgical Pathology Report Case: [id number] Authorizing Provider: Palomo Hughes, Collected: 08/30/2018 0859 Ordering Location: [facility] Received: 08/30/2018 1024 PERIOPERATIVE SERVICES Pathologist: Gibson Tinoco MD Specimen: Plaque, Left carotid artery plaque ARTERY, LEFT CAROTID, ENDARTERECTOMY:CALCIFIC ATHEROSCLEROTIC PLAQUE Signing Pathologist Direct Phone Line: [phone]; [phone] stenosisleft sideLeft carotid artery plaqueThe specimen is received in a formalin-filled container and labeled with the patient's information labeled "left carotid artery plaque" and consists of a tubular-shaped segment of lincoln calcified tissue measuring 3 cm in length x 0.6 cm in diameter. Proof Technician Helper sections are submitted A1 for decalcification. CG/pl Performed TSH/FREE T4 IF [id number] 13:02:00 Test Item Value Reference Range Interpretation Comments THYROID STIMULATING HORMONE 4.43 uIU/mL 0.35-4.94 (BEAKER) (test code = 772) POCT-GLUCOSE [id number] 08:14:00 Test Item Value Reference Range Interpretation Comments POC-GLUCOSE METER 129 mg/dL 70-110 H TESTED AT [facility] 6720 ([facility]) (test code = [facility] 1538) [address] BASIC METABOLIC [id number] 05:21:00 Test Item Value Reference Range Interpretation [...] S NOT APPLICABLE FOR DIALYSIS PATIEN TS. [id number] 05:18:00 Test Item Value Reference Range Interpretation Comments MAGNESIUM (BEAKER) (test code = 1.8 mg/dL 1.6-2.6 627) CBC W/PLT COUNT & AUTO [id number] 04:58:00 Test Item Value Reference Range Interpretation [...] PERCENT (BEAKER) (test code = 2801) POCT-GLUCOSE [id number] 21:12:00 Test Item Value Reference Range Interpretation Comments POC-GLUCOSE METER 156 mg/dL 70-110 H TESTED AT [place] [address] ([facility]) (test code = [facility] 1538) [address] POCT-GLUCOSE [id number] 18:50:00 Test Item Value Reference Range Interpretation Comments POC-GLUCOSE METER 154 mg/dL 70-110 H TESTED AT [place] [address] ([facility]) (test code = [facility] 1538) [address] POCT-GLUCOSE [id number] 12:31:00 Test Item Value Reference Range Interpretation Comments POC-GLUCOSE METER 152 mg/dL 70-110 H TESTED AT [place] [address] ([facility]) (test code = [facility] 1538) [address] CALCIUM, [id number] 06:47:00 Test Item Value Reference Range Interpretation Comments CALCIUM IONIZED (BEAKER) (test 1.04 mmol/L 1.12-1.27 L code = 698) PH, BLOOD (BEAKER) (test code = 7.33 9810) CBC W/PLT COUNT & AUTO [id number] 06:05:00 Test Item Value Reference Range Interpretation [...] 0-1 PERCENT (BEAKER) (test code = 2801) [id number] 06:03:00 Test Item Value Reference Range Interpretation Comments PHOSPHORUS (BEAKER) (test code = 4.0 mg/dL 2.3-4.7 604) [id number] 06:03:00 Test Item Value Reference Range Interpretation Comments MAGNESIUM (BEAKER) (test code = 2.0 mg/dL 1.6-2.6 627) BASIC METABOLIC [id number] 06:03:00 Test Item Value Reference Range Interpretation [...] NOT APPLICABLE FOR DIALYSIS PATIEN TS. POCT-GLUCOSE [id number] 21:11:00 Test Item Value Reference Range Interpretation Comments POC-GLUCOSE METER 128 mg/dL 70-110 H TESTED AT [facility] 6720 (BEAKER) (test code = [facility] [place] 1538) [address] POCT-GLUCOSE [id number] 20:59:00 Test Item Value Reference Range Interpretation Comments POC-GLUCOSE METER 135 mg/dL 70-110 H TESTED AT [facility] 67[address] (BEAKER) (test code = [facility] [place] 1538) [address] CALCIUM, [id number] 17:01:00 Test Item Value Reference Range Interpretation Comments CALCIUM IONIZED (BEAKER) (test 1.11 mmol/L 1.12-1.27 L code = 698) PH, BLOOD (BEAKER) (test code = 7.38 1810) [id number] 16:29:00 Test Item Value Reference Range Interpretation Comments MAGNESIUM (BEAKER) 2.6 mg/dL 1.6-2.6 Specimen markedly (test code = 627) hemolyzed [id number] 16:29:00 Test Item Value Reference Range Interpretation Comments POTASSIUM (BEAKER) 5.5 meq/L 3.5-5.1 H Specimen markedly (test code = 379) hemolyzed [id number] 16:29:00 Test Item Value Reference Range Interpretation Comments SODIUM (BEAKER) (test code = 381) 125 meq/L 136-145 L BASIC METABOLIC [id number] 14:09:00 Test Item Value Reference Range Interpretation [...] NOT APPLICABLE FOR DIALYSIS PATIEN TS. POCT-GLUCOSE [id number] 10:58:00 Test Item Value Reference Range Interpretation Comments POC-GLUCOSE METER 144 mg/dL 70-110 H TESTED AT [facility] 6720 (BEAKER) (test code = [place] 1538) [address] [id number] 04:23:00 Test Item Value Reference Range Interpretation Comments PHOSPHORUS (BEAKER) (test code = 4.5 mg/dL 2.3-4.7 604) [id number] 04:23:00 Test Item Value Reference Range Interpretation Comments MAGNESIUM (BEAKER) (test code = 1.8 mg/dL 1.6-2.6 627) BASIC METABOLIC [id number] 04:23:00 Test Item Value Reference Range Interpretation [...] NOT APPLICABLE FOR DIALYSIS PATIEN TS. CALCIUM, [id number] 04:22:00 Test Item Value Reference Range Interpretation Comments CALCIUM IONIZED (BEAKER) (test 1.06 mmol/L 1.12-1.27 L code = 698) PH, BLOOD (BEAKER) (test code = 7.39 1810) BLOOD GAS, [id number] 04:18:00 Test Item Value Reference Range Interpretation [...] code = 1819) 24.0 % SODIUM NA-STAT [id number] 04:18:00 Test Item Value Reference Range Interpretation Comments SODIUM (BEAKER) (test code = 381) 123 meq/L 135-148 L GLUCOSE-STAT [id number] 04:18:00 Test Item Value Reference Range Interpretation Comments GLUCOSE RANDOM (BEAKER) (test code 163 mg/dL 70-110 H = 652) HGB/HCT (H&H) - STAT [id number] 04:18:00 Test Item Value Reference Range Interpretation Comments HEMOGLOBIN (BEAKER) (test code = 10.9 g/dL 13.0-16.8 L 410) HEMATOCRIT (BEAKER) (test code = 32.0 % 40.0-50.0 L 411) POTASSIUM-STAT [id number] 04:12:00 Test Item Value Reference Range Interpretation Comments POTASSIUM (BEAKER) (test code = 4.7 meq/L 3.6-5.5 379) CBC W/PLT COUNT & AUTO [id number] 04:05:00 Test Item Value Reference Range Interpretation [...] 0-1 PERCENT (BEAKER) (test code = 2801) BASIC METABOLIC [id number] 01:22:00 Test Item Value Reference Range Interpretation [...] S NOT APPLICABLE FOR DIALYSIS PATIEN TS. [id number] 11:02:00 Test Item Value Reference Range Interpretation Comments PARTIAL THROMBOPLASTIN TIME 32.6 seconds 22.5-36.0 (BEAKER) (test code = 760) PROTHROMBIN [id number] 11:01:00 Test Item Value Reference Range Interpretation Comments PROTIME (BEAKER) (test code = 16.3 seconds 11.7-14.7 H 759) INR (BEAKER) (test code = 370) 1.3 <=5.9 RECOMMENDED COUMADIN/WARFARIN INR THERAPY RANGESSTANDARD DOSE: 2.0 - 3.0 Includes: PROPHYLAXIS forvenous thrombosis, systemic embolization; TREATMENT for venous thrombosis and/or pulmonary embolus.HIGH RISK: Target INR is 2.5-3.5 for patients with mechanical heart valves.[id number] 10:54:00 Test Item Value Reference Range Interpretation Comments MAGNESIUM (BEAKER) (test code = 1.7 mg/dL 1.6-2.6 627) BASIC METABOLIC [id number] 10:54:00 Test Item Value Reference Range Interpretation [...] PATIEN TS. CBC W/PLT COUNT & AUTO [id number] 10:35:00 Test Item Value Reference Range Interpretation [...] PERCENT (BEAKER) (test code = 2801) POCT-GLUCOSE [id number] 06:17:00 Test Item Value Reference Range Interpretation Comments POC-GLUCOSE METER 114 mg/dL 70-110 H TESTED AT [facility] 6720 (BEAKER) (test code = [place] 1538) [address] HEMOGLOBIN [id number] 12:37:00 Test Item Value Reference Range Interpretation Comments HEMOGLOBIN A1C (BEAKER) (test code = 6.3 % 4.3-6.1 H 368) LIPID [id number] 12:05:00 Test Item Value Reference Range Interpretation [...] 100-129 Borderline 130-159 High 160-189 Very High [id number] 12:05:00 Test Item Value Reference Range Interpretation Comments MAGNESIUM (BEAKER) (test code = 2.2 mg/dL 1.6-2.6 627) COMPREHENSIVE METABOLIC [id number] 12:05:00 Test Item Value Reference Range Interpretation [...] S NOT APPLICABLE FOR DIALYSIS PATIEN TS. PROTHROMBIN [id number] 11:57:00 Test Item Value Reference Range Interpretation Comments PROTIME (BEAKER) (test code = 14.9 seconds 11.7-14.7 H 759) INR (BEAKER) (test code = 370) 1.2 <=5.9 RECOMMENDED COUMADIN/WARFARIN INR THERAPY RANGESSTANDARD DOSE: 2.0 - 3.0 Includes: PROPHYLAXIS forvenous thrombosis, systemic embolization; TREATMENT for venous thrombosis and/or pulmonary embolus.HIGH RISK: Target INR is 2.5-3.5 for patients with mechanical heart valves.[id number] 11:57:00 Test Item Value Reference Range Interpretation Comments PARTIAL THROMBOPLASTIN TIME 32.0 seconds 22.5-36.0 (BEAKER) (test code = 760) CBC W/PLT COUNT & AUTO [id number] 11:48:00 Test Item Value Reference Range Interpretation [...] % 0-1 PERCENT (BEAKER) (test code = 0155)
[2021-06-26] MEDS ORDERED: GABAPENTIN 400 MG CAP ONE (13:09)
[2021-06-26] MEDS ORDERED: NA CHLORIDE 0.9% 1,000 ML ONE (13:58)
[2021-06-26] MEDS ORDERED: ONDANSETRON 4 MG/2 ML VIAL ONE (13:58)
[2021-06-26 14:19] LABS: Absolute Lymphocytes (CBC) 1.3 K/uL (0.7-4.9); Hematocrit 34.3 % (39.6-49.0); Lymphocytes % 13.4 % (15.3-44.8); MPV 7.9 fL (7.6-11.3); RBC Red Blood Cell Count 3.67 M/uL (4.33-5.43)
[2021-06-26 14:22] LABS: Protime INR 1.3
[2021-06-26] MEDS ORDERED: CEFTRIAXONE 1000 MG/VIAL ONE (14:24)
[2021-06-26] MEDS ORDERED: MECLIZINE HCL 12.5 MG TAB ONE (14:24)
[2021-06-26 15:05] LABS: Albumin 3.9 g/dL (3.4-5.0); Bilirubin Direct 0.5 mg/dL (0-0.2); Bilirubin Total 0.9 mg/dL (0.2-1.0); Potassium 3.1 mmol/L (3.5-5.1); Protein, Total 8.9 g/dL (6.4-8.2); Troponin High Sensitivity 52.9 pg/mL (<58.9)
--- NOTE | 2021-06-26 15:10 | RAD REPORT ---
EXAM DESCRIPTION: RAD - Chest Single View - 06/26/2021 3:00 pm CLINICAL HISTORY: vomiting COMPARISON: Portable July 2020, two view chest May 2019 TECHNIQUE: AP portable chest image was obtained 06/26/2021 3:00 pm . FINDINGS: Moderate-sized right pleural effusion is present larger than on the preceding studies. Rig ht heart border and right hemidiaphragm are obscured by the pleural fluid. Atelectasis, infiltrate an d/or mass in the right base of the present along or in combination. Upper right lung field is clear. Left lung field is clear. No left-sided pleural effusion identifiable. Heart and vasculature are normal. No pneumothorax. No acute bony abnormality seen. No acute aortic f indings suspected. IMPRESSION: Moderate size right pleural effusion with infiltrate, atelectasis and/ or mass lesion in the right base all possible.
--- NOTE | 2021-06-26 15:45 | EDPHYS ---
Physician Documentation [facility] Name: John Cox Age: 86 yrs Sex: Male : 1935 Arrival Date: 06/26/2021 Time: 12:42 Bed 20 Private MD: ED Physician Andre Alvarez HPI: 06/26 14:23 This 86 yrs old Male presents to ER via Ambulatory with complaints of Nausea, Dizziness.ma2 14:23 The patient presents to the emergency department with nausea, vomiting. Onset: The ma2 symptoms/episode began/occurred gradually, 1 day(s) ago. Associated signs and symptoms: Pertinent negatives: belching, dysuria, flatulence, hematuria. Severity of symptoms: At their worst the symptoms were moderate in the emergency department the symptoms are unchanged. The patient has experienced similar episodes in the past. Historical: - Allergies: 12:55 No Known Allergies; jg9 - PMHx: 12:55 Hypertension; jg9 - Immunization history:: Client reports receiving the 2nd dose of the Covid vaccine, Pneumococcal vaccine is up to date, Flu vaccine is up to date. - Social history:: Smoking status: Patient/guardian denies using tobacco, the patient reports quitting approximately 50 years ago, Patient/guardian denies using alcohol, street drugs, The patient lives with family. - Family history:: not pertinent. ROS: 14:23 Constitutional: Negative for fever, chills, and weight loss. ma2 14:23 All other systems are negative. Exam: 14:23 Constitutional: This is a well developed, well nourished patient who is awake, alert, ma2 and in no acute distress. Head/Face: Normocephalic, atraumatic. Eyes: Pupils equal round and reactive to light, extra-ocular motions intact. Lids and lashes normal. Conjunctiva and sclera are non-icteric and not injected. Cornea within normal limits. Periorbital areas with no swelling, redness, or edema. ENT: Nares patent. No nasal discharge, no septal abnormalities noted. Tympanic membranes are normal and external auditory canals are clear. Oropharynx with no redness, swelling, or masses, exudates, or evidence of obstruction, uvula midline. Mucous membranes moist. Neck: Trachea midline, no thyromegaly or masses palpated, and no cervical lymphadenopathy. Supple, full range of motion without nuchal rigidity, or vertebral point tenderness. No Meningismus. Chest/axilla: Normal chest wall appearance and motion. Nontender with no deformity. No lesions are appreciated. Cardiovascular: Regular rate and rhythm with a normal S1 and S2. No gallops, murmurs, or rubs. Normal PMI, no JVD. No pulse deficits. Respiratory: Lungs have equal breath sounds bilaterally, clear to auscultation and percussion. No rales, rhonchi or wheezes noted. No increased work of breathing, no retractions or nasal flaring. Abdomen/GI: Soft, non-tender, with normal bowel sounds. No distension or tympany. No guarding or rebound. No evidence of tenderness throughout. Skin: Warm, dry with normal turgor. Normal color with no rashes, no lesions, and no evidence of cellulitis. MS/ Extremity: Pulses equal, no cyanosis. Neurovascular intact. Full, normal range of motion. Neuro: Awake and alert, GCS 15, oriented to person, place, time, and situation. Cranial nerves II-XII grossly intact. Motor strength 5/5 in all extremities. Sensory grossly intact. Cerebellar exam normal. Normal gait. Vital Signs: 12:52 BP 194 / 83; Pulse 89; Resp 18 S; Temp 97.9; Pulse Ox 92% on R/A; Weight 77.11 kg; jg9 Height 5 ft. 6 in. (167.64 cm); 14:15 Pulse 86; Resp 18; Pulse Ox 98% on R/A; ld1 20:02 BP 161 / 93; Pulse 82; Resp 20; Pulse Ox 93% ; sf1 20:23 BP 162 / 82; Pulse 78; sf1 12:52 Body Mass Index 27.44 (77.11 kg, 167.64 cm) jg9 MDM: 13:33 Patient medically screened. ma2 15:42 Differential diagnosis: Patient has vomiting pneumonia, acute renal failure, likely due ma2 to dehydration, given IV fluids, I discussed with Dr. Carcamo. Data reviewed: vital signs, nurses notes. Counseling: I had a detailed discussion with the patient and/or guardian regarding: the historical points, exam findings, and any diagnostic results supporting the discharge/admit diagnosis, the presence of at least one elevated blood pressure reading (>120/80) during this emergency department visit, the need for further work-up and treatment in the hospital. Response to treatment: the patient's symptoms have markedly improved after treatment. 06/26 13:51 Order name: Basic Metabolic Panel [facility] 06/26 13:51 Order name: CBC with Diff; Complete Time: 15:28 [facility] 06/26 13:51 Order name: LFT's [facility] 06/26 13:51 Order name: Magnesium [facility] 06/26 13:51 Order name: NT PRO-BNP [facility] 06/26 13:51 Order name: PT-INR; Complete Time: 15:28 [facility] 06/26 13:51 Order name: Troponin HS [facility] 06/26 13:51 Order name: Lipase [facility] 06/26 16:25 Order name: COVID-19 SARS RT PCR (Document "Date of Onset" if Symptomatic) 06/26 20:00 Order name: Comprehensive Metabolic Panel [facility] 06/26 20:00 Order name: Comprehensive Metabolic Panel [facility] 06/26 20:00 Order name: Comprehensive Metabolic Panel [facility] 06/26 20:00 Order name: Comprehensive Metabolic Panel [facility] 06/26 20:00 Order name: CBC with Automated Diff [facility] 06/26 13:51 Order name: XRAY Chest (1 view); Complete Time: 15:28 [facility] 06/26 13:51 Order name: EKG; Complete Time: 13:52 [facility] 06/26 13:51 Order name: CT Head Brain wo Cont [facility] 06/26 15:19 Order name: Abdomen [facility] 06/26 20:00 Order name: CONS Physician Consult [facility] 06/26 20:00 Order name: Physical Therapy Consult [facility] 06/26 20:00 Order name: CBC with Automated Diff [facility] 06/26 20:00 Order name: CBC with Automated Diff [facility] 06/26 20:00 Order name: CBC with Automated Diff [facility] 06/26 20:01 Order name: Heart Healthy [facility] 06/26 13:51 Order name: Cardiac monitoring; Complete Time: 16:05 [facility] 06/26 13:51 Order name: EKG - Nurse/Tech; Complete Time: 14:13 [facility] 06/26 13:51 Order name: IV Saline Lock; Complete Time: 14:13 [facility] 06/26 13:51 Order name: Labs collected and sent; Complete Time: 14:13 [facility] 06/26 13:51 Order name: O2 Per Protocol; Complete Time: 14:13 mo2 06/26 13:51 Order name: O2 Sat Monitoring; Complete Time: 14:13 mo2 Administered Medications: 14:12 Drug: NS 0.9% 500 ml Route: IV; Rate: 1 bolus; Site: right forearm; ww 14:12 Drug: Zofran (Ondansetron) 4 mg Route: IVP; Site: right forearm; ww 14:27 Drug: Rocephin (cefTRIAXone) 1 grams Route: IV; Rate: calculated rate; Site: right ld1 forearm; 14:28 Drug: Meclizine 25 mg Route: PO; ld1 17:24 Drug: AZITHromycin 500 mg Route: IVPB; Infused Over: 1 hrs; Site: right forearm; ld1 Disposition Summary: 06/26/21 15:44 Hospitalization Ordered Hospitalization Status: Inpatient Admission [facility] Provider: Gio Carcamo [facility] Location: Telemetry/MedSurg (Inpatient) ma2 Condition: Stable ma Problem: new [facility] Symptoms: are unchanged [facility] Bed/Room Type: Standard [facility] Room Assignment: 216(06/26/21 20:16) eb1 Diagnosis - Acute kidney failure, unspecified ma2 - Bronchopneumonia, unspecified organism ma2 - Dehydration ma2 - Vomiting ma2 Forms: - Medication Reconciliation Form ma2 - SBAR form mo2 Signatures: Dispatcher [employer] EDMS Andre Alvarez MD MD ma2 Amy Glynn RN RN eb1 Beryl Cabezas RN RN ld1 Tarsha Everett RN RN jg9 Nelly Aragon RN RN ww Corrections: (The following items were deleted from the chart) 15:19 13:52 Abdomen Pelvis W Con+CT.RAD.BRZ ordered. EDMS EDMS 20:16 15:44 ma2 eb1
--- NOTE | 2021-06-26 15:45 | ER ---
Nurse's Notes [facility] Name: John Cox Age: 86 yrs Sex: Male : 1935 Arrival Date: 06/26/2021 Time: 12:42 Bed 20 Private MD: Diagnosis: Acute kidney failure, unspecified;Bronchopneumonia, unspecified organism;Dehydration;Vomiting Presentation: 06/26 12:52 Chief complaint: Patient's son or daughter states: This morning the patient total jg9 hearing loss of the left side followed by dizziness and nausea. Coronavirus screen: Vaccine status: Patient reports receiving the 2nd dose of the covid vaccine. Ebola Screen: Patient negative for fever greater than or equal to 101.5 degrees Fahrenheit, and additional compatible Ebola Virus Disease symptoms Patient denies exposure to infectious person. Patient denies travel to an Ebola-affected area in the 21 days before illness onset. Initial Sepsis Screen: Does the patient meet any 2 criteria? No. Patient's initial sepsis screen is negative. Does the patient have a suspected source of infection? No. Patient's initial sepsis screen is negative. Risk Assessment: Do you want to hurt yourself or someone else? Patient reports no desire to harm self or others. Onset of symptoms is unknown. 12:52 Method Of Arrival: Ambulatory 9 12:52 Acuity: JES 3 jg9 Triage Assessment: 12:55 General: Appears in no apparent distress. Behavior is calm. Pain: Denies pain. GI: jg9 Reports nausea. Historical: - Allergies: 12:55 No Known Allergies; jg9 - PMHx: 12:55 Hypertension; jg9 - Immunization history:: Client reports receiving the 2nd dose of the Covid vaccine, Pneumococcal vaccine is up to date, Flu vaccine is up to date. - Social history:: Smoking status: Patient/guardian denies using tobacco, the patient reports quitting approximately 50 years ago, Patient/guardian denies using alcohol, street drugs, The patient lives with family. - Family history:: not pertinent. Screenin:56 Abuse screen: Denies threats or abuse. Denies injuries from another. Nutritional jg9 screening: No deficits noted. Tuberculosis screening: No symptoms or risk factors identified. Fall Risk None identified. Assessment: 14:15 General: Appears in no apparent distress. uncomfortable, Behavior is calm, cooperative, ld1 appropriate for age. 14:15 Pain: Denies pain. Neuro: Level of Consciousness is awake, alert, obeys commands, ld1 Oriented to person, place, time, situation. Cardiovascular: Capillary refill < 3 seconds Patient's skin is warm and dry. Respiratory: Airway is patent Respiratory effort is even, unlabored. GI: Abdomen is flat, non-distended, Reports nausea. : No signs and/or symptoms were reported regarding the genitourinary system. EENT: No signs and/or symptoms were reported regarding the EENT system. Vital Signs: 12:52 BP 194 / 83; Pulse 89; Resp 18 S; Temp 97.9; Pulse Ox 92% on R/A; Weight 77.11 kg; jg9 Height 5 ft. 6 in. (167.64 cm); 14:15 Pulse 86; Resp 18; Pulse Ox 98% on R/A; ld1 20:02 BP 161 / 93; Pulse 82; Resp 20; Pulse Ox 93% ; sf1 20:23 BP 162 / 82; Pulse 78; sf1 12:52 Body Mass Index 27.44 (77.11 kg, 167.64 cm) jg9 ED Course: 12:42 Patient arrived in ED. ds1 12:54 Triage completed. jg9 12:55 Arm band placed on right wrist. jg9 13:33 Andre Alvarez MD is Attending Physician. ma2 14:15 Patient has correct armband on for positive identification. ld1 14:15 No provider procedures requiring assistance completed. Inserted saline lock: 20 gauge ld1 in right forearm, using aseptic technique. Blood collected. 14:47 Beryl Cabezas, ISI is Primary Nurse. ld1 15:00 XRAY Chest (1 view) In Process Unspecified. EDMS 15:44 Gio Carcamo MD is Hospitalizing Provider. ma2 16:00 CT Head Brain wo Cont In Process Unspecified. EDMS 16:03 Abdomen In Process Unspecified. EDMS 17:24 COVID-19 SARS RT PCR (Document "Date of Onset" if Symptomatic) Sent. ld1 21:10 Patient admitted, IV remains in place. ld1 Administered Medications: 14:12 Drug: NS 0.9% 500 ml Route: IV; Rate: 1 bolus; Site: right forearm; ww 14:12 Drug: Zofran (Ondansetron) 4 mg Route: IVP; Site: right forearm; ww 14:27 Drug: Rocephin (cefTRIAXone) 1 grams Route: IV; Rate: calculated rate; Site: right ld1 forearm; 14:28 Drug: Meclizine 25 mg Route: PO; ld1 17:24 Drug: AZITHromycin 500 mg Route: IVPB; Infused Over: 1 hrs; Site: right forearm; ld1 Outcome: 15:44 Decision to Hospitalize by Provider. maGiovana 21:09 Admitted to Med/surg accompanied by nurse, via wheelchair, room 216, with chart, Report ld1 called to ISI Johnson 21:09 Condition: stable 21:09 Instructed on the need for admit. 21:43 Patient left the ED. ld1 Signatures: Dispatcher [employer] Caron Worley dsAndre Tiwari MD MD ma2 Beryl Cabezas RN RN ld1 Tarsha Everett RN RN jg9 Nelly Aragon RN RN ww Mya Castillo RN RN sf1
--- NOTE | 2021-06-26 16:10 | RAD REPORT ---
EXAM DESCRIPTION: CT - Head Brain Wo Cont - 06/26/2021 4:00 pm CLINICAL HISTORY: SWELLINGRittger pain, hearing loss COMPARISON: Head Brain Wo Cont dated 08/05/2018 TECHNIQUE: Axial 5 mm thick images of the head were obtained without IV contrast. All CT scans are performed using dose optimization technique as appropriate and may include automated exposure control or mA/KV adjustment according to patient size. FINDINGS: No intracranial hemorrhage, mass, edema or shift of mid-line structures. No acute cortical based infarction seen. Moderate severity atrophy present with moderate chronic ischemic change. Vent ricles are in proportion to volume loss. Chronic ischemic pattern appears stable. Atrophy may be frac tionally progressive. No abnormal extra-axial fluid collections. Ventricles are normal. Bilateral mastoid air cells and middle ears are fully aerated. No external auditory canal abnormality seen. No acute paranasal sinus finding peer No acute bony findings. Patient has very dense arterial tree calcifications. IMPRESSION: Negative non-contrast CT head examination for acute intracranial finding. Chronic ische anika pattern is stable with the atrophy stable to fractionally progressive from 2019. Bilateral mastoid air cells and middle ears are fully aerated. No acute paranasal sinus finding.
--- NOTE | 2021-06-26 16:19 | RAD REPORT ---
EXAM DESCRIPTION: CT - Abdomen Pelvis Wo Contrast - 06/26/2021 4:03 pm CLINICAL HISTORY: ABD PAIN COMPARISON: <Comparisons> TECHNIQUE: Axial [address] imaging of the abdomen and pelvis was performed without IV contrast. No IV contrast was given because of allergy, abnormal renal function, patient refusal or physician re quest. No oral contrast administered peer All CT scans are performed using dose optimization technique as appropriate and may include automated exposure control or mA/KV adjustment according to patient size. FINDINGS: Large right pleural effusion is present at the right base with near complete atelectasis o f the right lower lobe. There is right middle lobe partial atelectasis. No endobronchial lesion is id entifiable. Sensitivity is decreased some blood in the abscess of contrast ; however, no underlying m ass lesions seen. No consolidated parenchyma identified. Left lung base is clear. Nodular capsule contour noted. Approximately 4.5 x 2.7 centimeter area of more prominent tissue is se en near the liver capsule posterior right lobe (series 201, image 32). No similar finding seen on the far remote 2008 comparison. No other area of possible liver lesion. No splenomegaly or focal splenic finding. No pancreatic or peripancreatic abnormality seen. No hydronephrosis or suspicious mass of t he right kidney. No obstructing or nonobstructing calculi. Dense right renal artery calcifications are present. Atrophic left kidney is present with no acute fi nding identifiable. No hydronephrosis or suspicious renal mass. No significant adrenal finding. Isodense renal masses an d pyelonephritis cannot be excluded in the absence of IV contrast. The urinary bladder is without sig nificant finding. No dilated bowel loops or bowel wall thickening. No appendicitis findings. Diverticulosis is rare. No active GI process identified. No free air, free fluid or inflammatory stranding. No hernia, mass or bulky lymphadenopathy. Disc and bone degenerative changes are present. No acute or pathologic bone process identifiable. Vas cular calcifications are present. IMPRESSION: Large right pleural effusion with near complete atelectasis of the right lower lobe. No underlying mass or infiltrate identifiable. Nodular liver capsule suggesting cirrhosis or diffuse hepatic parenchymal disease. There is a focal 4.5 x 2.7 centimeter area of more prominent liver tissue isodense to slightly hyperd ense to the liver parenchyma posterior capsule margin of the right lobe. The liver mass cannot be exc luded on a noncontrast study. Follow-up hepatic sonography or follow-up contrast CT imaging can be pe rformed as warranted. No ascites. No emergent abdominal or pelvic finding.
[2021-06-26] MEDS ORDERED: AZITHROMYCIN 500 MG INJ IVPB ONE (16:42)
[2021-06-26] MEDS ORDERED: NA CHLORIDE 0.9% 250 ML ONE (16:43)
--- NOTE | 2021-06-26 20:08 | P.HP ---
Certification for Inpatient Patient admitted to: Inpatient With expected LOS: >2 Midnights Patient will require the following post-hospital care: None Practitioner: I am a practitioner with admitting privileges, knowledge of patient current condition, hospital course, and medical plan of care. Services: Services provided to patient in accordance with Admission requirements found in Title 42 Section 412.3 of the Code of Federal Regulations Patient History Date of Service: 06/26/21 Primary Care Provider: Rodney Reason for admission: right pleural effusion History of Present Illness: Patient is a pleasant gentleman with a history of htn, cad and mild cognitive impairment. He woke up this morning and complained of some left ear pain. He then started acting confused and his family brought him to the ER. The patient had a negative CT scan of the head. However cxr and ct of the abdomen showed a right sided pleural effusion his creatine is also elevated from the baseline 1.7 to 3.8. the patient will be admitted he is resting comfortable. Allergies No Known Allergies Allergy (Verified 08/23/18 11:18) Home Medications: Amlodipine [Norvasc*] 10 mg PO DAILY #30 tab 08/15/20 Apixaban [Eliquis] 2.5 mg PO BID #60 08/15/20 Cholecalciferol (Vitamin D3) [Vitamin D 5,000 IU Cap*] 5,000 unit PO DAILY #30 cap 08/15/20 Hydralazine HCl 50 mg PO TID #90 tablet 08/15/20 Na Bicarb Tab [Sodium Bicarb 325 MG Tab*] 650 mg PO BID #120 tab 08/15/20 Thiamine HCl [Vitamin B-1*] 100 mg PO DAILY #30 tablet 08/15/20 carvediloL [Coreg*] 25 mg PO BID 6AM 6PM #60 tab 08/15/20 cloNIDine HCL [Catapres*] 0.2 mg PO TID #180 tab 08/15/20 - Past Medical/Surgical History Diabetic: No -: HTN -: Carotid artery stenosis s/p CEA -: CKDIII -: cataract surgery - Family History Father -: Hypertension Brother -: Cancer - Social History Alcohol use: Yes CD- Drugs: No Caffeine use: Yes Review of Systems 10-point ROS is otherwise unremarkable ENT: Ear Pain (left side) Physical Examination - Physical Exam General: Alert, In no apparent distress HEENT: Atraumatic, PERRLA, Mucous membr. moist/pink, Other (mild cerumen in the right ear. Impacted and occlusion of cerumen in the left side. ), EOMI, Sclerae nonicteric Neck: Supple, 2+ carotid pulse no bruit, No LAD, Without JVD or thyroid abnormality Respiratory: Clear to auscultation bilaterally, Normal air movement Cardiovascular: Regular rate/rhythm, Normal S1 S2 Gastrointestinal: Normal bowel sounds, No tenderness Musculoskeletal: No tenderness Integumentary: No rashes Neurological: Normal gait, Normal speech, Normal strength at 5/5 x4 extr, Normal tone, Normal affect Lymphatics: No axilla or inguinal lymphadenopathy - Studies Laboratory Data (last 24 hrs) 06/26/21 14:10: PT 15.0 H, INR 1.30 06/26/21 14:10: WBC 9.90, Hgb 11.6 L, Hct 34.3 L, Plt Count 217 06/26/21 14:09: Sodium 132 L, Potassium 3.1 L, BUN 60 H, Creatinine 3.80 H, Glucose 136 H, Total Bilirubin 0.9, AST 26, ALT 22, Alkaline Phosphatase 107, Lipase 345 Assessment and Plan - Problems (Diagnosis) (1) Pleural effusion, right Current Visit: Yes Status: Acute Plan: will start him on levaquin. Consult to Dr. Hines. (2) HTN (hypertension) Current Visit: Yes Status: Acute Plan: continue his home medication of hydralazine. Will switch him to a clonodine tts for ease of administration. Qualifiers: Hypertension type: primary hypertension Qualified Code(s): I10 - Essential (primary) hypertension (3) Cerumen impaction Current Visit: Yes Status: Acute Plan: debrox to the right ear. he can follow up with his pcp for flushing of the ear. Qualifiers: Laterality: left Qualified Code(s): H61.22 - Impacted cerumen, left ear (4) Acute kidney injury Current Visit: No Status: Acute Plan: Consult to nephrology. 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 Will start him on d5 1/2 N saline. Discharge Plan: Home Plan to discharge in: 24 Hours - Advance Directives Does patient have a Living Will: No Does patient have a Durable POA for Healthcare: Yes - Code Status/Comfort Care Code Status Assessed: No Code Status: Full Code Physician Review: Patient Assessed, Agree with Above Assessment and Plan Critical Care: No Time Spent Managing Pts Care (In Minutes): 70
[2021-06-26] MEDS ORDERED: APIXABAN 2.5 MG TABLET PO SCH (21:00)
[2021-06-26] MEDS ORDERED: HYDRALAZINE HCL 25 MG TABLET PO SCH (21:00)
[2021-06-26] MEDS ORDERED: Levofloxacin 250mg IV 250 MG/50 ML BAG IV SCH (21:00)
[2021-06-26] MEDS ORDERED: LEVOFLOXACIN 750MG/D5W 150 ML IV ONE (21:00)
[2021-06-26] MEDS: CARBAMIDE PEROXIDE EAR DROPS (15 mL) LEFT EAR SCH (21:00)
[2021-06-26 21:45] VITALS: BMI 25.7
[2021-06-26 22:13] LABS: Magnesium 2.1
[2021-06-26] MEDS: SODIUM BICARB 325 MG TAB PO SCH (22:35)
[2021-06-26] MEDS: D5 0.45 NS 1,000 ML IV SCH (22:35)
[2021-06-26] MEDS: HYDRALAZINE HCL 20 MG/ML VIAL IV PRN (22:36)
[2021-06-27 00:17] LABS: Urine Appearance CLEAR (Clear); Urine Bilirubin NEGATIVE (Negative); Urine Blood NEGATIVE (Negative); Urine Color YELLOW (Yellow); Urine Glucose NEGATIVE (Negative); Urine Protein 2+ (Negative); Urine Urobilinogen 0.2 mg/dL (0.2-1.0)
[2021-06-27 00:18] LABS: Urine Microscopic Reflex ORDER UMIC
[2021-06-27 00:56] LABS: Urine Bacteria <20 /HPF (NONE SEEN); Urine RBC <5 /HPF (NONE SEEN); Urine Urothelial Cells <5 /HPF (NONE SEEN)
[2021-06-27] MEDS: HYDRALAZINE HCL 20 MG/ML VIAL IV PRN ×4 (04:17→23:53)
[2021-06-27 06:21] LABS: Absolute Lymphocytes (CBC) 0.7 K/uL (0.7-4.9); Hematocrit 31.5 % (39.6-49.0); Lymphocytes % 11.5 % (15.3-44.8); MPV 8.4 fL (7.6-11.3); RBC Red Blood Cell Count 3.39 M/uL (4.33-5.43)
[2021-06-27 06:32] LABS: Albumin 3.1 g/dL (3.4-5.0); Bilirubin Total 0.7 mg/dL (0.2-1.0); Potassium 4.1 mmol/L (3.5-5.1); Protein, Total 7.6 g/dL (6.4-8.2)
[2021-06-27] MEDS: CARBAMIDE PEROXIDE EAR DROPS (15 mL) LEFT EAR SCH (09:00)
[2021-06-27] MEDS ORDERED: CLONIDINE 0.2 MG/PATCH TD SCH (09:00)
[2021-06-27] MEDS ORDERED: FUROSEMIDE 40 MG TABLET PO SCH (09:00)
--- NOTE | 2021-06-27 09:00 | RAD REPORT ---
EXAM DESCRIPTION: RAD - Chest Lateral Decubitus - 06/27/2021 8:54 am CLINICAL HISTORY: Pleural effusion IMPRESSION: Moderate mostly layering right pleural effusion.
[2021-06-27] MEDS: D5 0.45 NS 1,000 ML IV SCH (09:20)
[2021-06-27] MEDS: SODIUM BICARB 325 MG TAB PO SCH ×2 (10:13→20:32)
--- NOTE | 2021-06-27 11:51 | P.CNS ---
Date of Consult: 06/27/21 Reason for Consult: Pleural effusion Primary Care Provider: Rodney Chief Complaint: right pleural effusion History of Present Illness: Patient is patient is 86 years of age with hypertension coronary artery disease admitted with left ear pain complaining of feeling little nauseated came here to the emergency room was found to have a right-sided pleural effusion he still feels weak renal function had gotten worse son at the bedside in fact only has 1 kidney he does drink alcohol and was found to have possible cirrhosis of the liver Allergies No Known Allergies Allergy (Verified 08/23/18 11:18) Home Medications: Apixaban [Eliquis] 2.5 mg PO BID #60 08/15/20 Hydralazine HCl 50 mg PO TID #90 tablet 08/15/20 Na Bicarb Tab [Sodium Bicarb 325 MG Tab*] 650 mg PO BID #120 tab 08/15/20 cloNIDine HCL [Catapres*] 0.2 mg PO TID #180 tab 08/15/20 - Past Medical/Surgical History Diabetic: No -: HTN -: Carotid artery stenosis s/p CEA -: CKDIII -: cataract surgery - Family History Father Medical History: Heart disease, Hypertension Brother Medical History: Cancer - Social History Smoking Status: Former smoker Alcohol use: Yes CD- Drugs: No Caffeine use: Yes Place of Residence: Home Review of Systems 10-point ROS is otherwise unremarkable General: Weakness Gastrointestinal: Nausea Physical Examination Temp Pulse Resp BP Pulse Ox 97.3 F 81 20 226/116 H 94 06/27/21 08:00 06/27/21 09:00 06/27/21 08:00 06/27/21 09:00 06/27/21 08:00 General: Alert, In no apparent distress, Oriented x3 Neck: Supple Respiratory: Clear to auscultation bilaterally, Diminished (Right base) Cardiovascular: No edema, Normal pulses Gastrointestinal: Normal bowel sounds, Soft and benign Laboratory Data (last 24 hrs) 06/26/21 14:10: PT 15.0 H, INR 1.30 06/26/21 14:10: WBC 9.90, Hgb 11.6 L, Hct 34.3 L, Plt Count 217 06/26/21 14:09: Sodium 132 L, Potassium 3.1 L, BUN 60 H, Creatinine 3.80 H, Glucose 136 H, Magnesium 2.1, Total Bilirubin 0.9, AST 26, ALT 22, Alkaline Phosphatase 107, Lipase 345 - Problems (1) Pleural effusion, right Current Visit: Yes Status: Acute Plan: Patient is 86 years old patient is 86 years of age evaluated by me for a right- sided pleural effusion he denies any chest pain fever or chills patient does have some nodularity of the liver possible cirrhosis renal function renal function is improving he has anemia of chronic disease continue with IV fluids patient may have a mass in the patient may have a mass on the liver/possible discharge home possible discharge tomorrow continue to monitor the pleural effusion patient may had a chest x-ray done approximately a year ago blood pressure is very well blood pressure is very elevated/follow-up with me will continue to monitor as an outpatient possible thoracentesis most likely this is from cirrhosis of the liver
[2021-06-27] MEDS ORDERED: CLONIDINE 0.3 MG/PATCH TD SCH (12:00)
--- NOTE | 2021-06-27 12:02 | P.PN ---
Subjective Date of Service: 06/27/21 Primary Care Provider: Rodney Chief Complaint: right pleural effusion Subjective: Improving Review of Systems 10-point ROS is otherwise unremarkable Musculoskeletal: Arm Pain (bilateral) Physical Examination - Vital Signs Temperature: 97.3 F Blood Pressure: 226/116 Pulse: 81 Respirations: 20 Pulse Ox (%): 94 - Physical Exam General: Alert, In no apparent distress HEENT: Atraumatic, PERRLA, EOMI Neck: Supple, JVD not distended Respiratory: Clear to auscultation bilaterally, Normal air movement Cardiovascular: Regular rate/rhythm, Normal S1 S2 Gastrointestinal: Normal bowel sounds, No tenderness Musculoskeletal: No tenderness Integumentary: No rashes Neurological: Normal speech, Normal tone, Normal affect Lymphatics: No axilla or inguinal lymphadenopathy - Studies Laboratory Data (last 24 hrs) 06/26/21 14:10: PT 15.0 H, INR 1.30 06/26/21 14:10: WBC 9.90, Hgb 11.6 L, Hct 34.3 L, Plt Count 217 06/26/21 14:09: Sodium 132 L, Potassium 3.1 L, BUN 60 H, Creatinine 3.80 H, Glucose 136 H, Magnesium 2.1, Total Bilirubin 0.9, AST 26, ALT 22, Alkaline Phosphatase 107, Lipase 345 Assessment And Plan - Current Problems (Diagnosis) (1) Pleural effusion, right Current Visit: Yes Status: Acute Plan: will start him on levaquin. Consult to Dr. Hines. no plans for thoracentesis (2) HTN (hypertension) Current Visit: Yes Status: Acute Plan: continue his home medication of hydralazine. Will switch him to a clonodine tts for ease of administration. Qualifiers: Hypertension type: primary hypertension Qualified Code(s): I10 - Essential (primary) hypertension (3) Cerumen impaction Current Visit: Yes Status: Acute Plan: debrox to the right ear. he can follow up with his pcp for flushing of the ear. Qualifiers: Laterality: left Qualified Code(s): H61.22 - Impacted cerumen, left ear (4) Acute kidney injury Current Visit: No Status: Acute Plan: Consult to nephrology. 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 Will start him on d5 1/2 N saline. improving with fluids (5) Liver nodule Current Visit: Yes Status: Acute Plan: Patient drinks 1-3 beers daily. His pleural fluid may be from liver failure. Discharge Plan: Home Plan to discharge in: 48 Hours - Code Status/Comfort Care Code Status Assessed: No Code Status: Full Code Physician Review: Patient Assessed, Agree with Above Assessment and Plan Critical Care: No Time Spent Managing PTS Care (In Minutes): 25
--- NOTE | 2021-06-27 12:15 | CON ---
Date of Consultation: 06/27/2021 Reason For Consultation: Elevated BUN and creatinine, fluid management. History Of Present Illness: This is a pleasant 86-year-old gentleman. All the information has been obtained from the son by bedside as the patient is mentally challenged. This is an 86-year-old gentl eman with significant past medical history of hypertension, chronic kidney disease, solitary kidney s econdary to hypertension nephrosclerosis/renal vascular disease, baseline creatinine 1.6-1.8, CVA, me ntally challenged, carotid stenosis status post endarterectomy 2 years back, the patient was in his r ular state of health, started complaining from ear pain, then started having nausea and vomiting, f or that reason brought to the hospital. Upon arrival to the hospital, found to have elevation in BUN and creatinine and cerumen impaction. For that reason, the patient was admitted and we have been co nsulted. The patient admits that he has been taking his Lasix. No change in his medication. No non steroidal intake. No recent hospitalization. No contrast exposure. Past Medical History: Includes; 1.Hypertension. 2.Chronic kidney disease, solitary kidney secondary to hypertension nephrosclerosis, renal vascular disease. 3.Hyperlipidemia. 4.Carotid stenosis, status post endarterectomy. Past Surgical History: Includes; 1.Cataract. 2.Antrectomy. Family History: Positive for hypertension and cancer. Social History: Ex-smoker. Denied alcohol. Denied drug abuse. Lives with the son. Review of Systems: Head and Neck: Had headache. No red eye. No ear pain. GI: Has nausea, vomiting. : No polyuria. No dysuria. No hematuria. Data Services Developer: Not applicable. Respiratory: No shortness of breath. Cardiovascular: Has leg swelling. Endocrine: No polydipsia. Skin: No rash. Neuro: Mentally challenged. No weakness. Musculoskeletal: No joint pain. Physical Examination: Vital Signs: When I saw the patient; blood pressure 185/96, pulse of 77, afebrile. Chest: Clear to auscultation. Heart: S1, S2. Systolic murmur. Abdomen: Soft, nontender. Extremity: Plus edema. Neurologic: Alert. No focality. Laboratory Data: Chest x-ray; no cardiomegaly, has right pleural effusion. WBC 6.1, H and H 10.5/31 .5. Sodium 131, potassium 4.1, bicarb 21, BUN 61, creatinine 3.5, GFR 16, calcium 8.9. Back in [place] h 2020, creatinine 1.7. GFR of 38. BNP 5667. Urinalysis was negative for infection. Current Medications: The patient on include clonidine patch, Levaquin, hydralazine, sodium bicarb, a nd normal saline D5 half-normal at 75 per hour. Assessment And Plan: 1.Acute kidney injury on chronic kidney disease, chronic component secondary to solitary kidney, aisha al vascular disease, hypertension nephrosclerosis, acute kidney injury secondary to prerenal, superim posed with diuresis. No hyperkalemia. No significant over volume. I am going to go ahead and disco ntinue Lasix. Agree with IV fluid. CT done did not show any obstructive uropathy. We will send for PTH and CK and uric acid and we will follow up. 2.Hypertension, not controlled. The patient on the CT showing calcification on the renal artery, po ssibly the patient had renal artery stenosis. Unfortunately, the patient had solitary kidney. It is going to be too hard to do with his age any angioplasty for the time being. I agree with holding th e diuresis. I am going to increase clonidine to 0.3. We will add beta-noé and calcium channel b locker for better blood pressure control and we will follow up response. 3.Edema for the lower extremity. Again, chest x-ray did not show any significant cardiomegaly. I a m going to go ahead and send for protein creatinine, send for TSH, and we will follow up. Hold on th e diuresis for the time being. 4.Pleural effusion as by primary. Continue antibiotic. 5.Hyponatremia secondary to depletional. The patient was started on IV fluid. We will change IV fl uid to normal saline. Thank you Dr. Carcamo for allowing us to participate in the care of your patient. BELA/SALMA Voice ID: [id number] Report ID: [id number]
[2021-06-27] MEDS: NA CHLORIDE 0.9% 1,000 ML IV SCH (13:19)
--- NOTE | 2021-06-27 14:49 | RAD REPORT ---
EXAM DESCRIPTION: US - Liver Only - 06/27/2021 2:30 pm CLINICAL HISTORY: Liver ultrasound Abdominal pain COMPARISON: Abdomen Pelvis Wo Contrast dated 06/26/2021 FINDINGS: The liver has a heterogenous echotexture and a nodular contour compatible with mild cirrho sis.A discrete liver mass is not identifiable.Mild free fluid is seen along the liver and splenic edg e.Phasic flow is seen throughout the portal vein. IMPRESSION: Mild diffuse liver cirrhosis pattern is present. A discrete liver mass is not identifie d.
[2021-06-27] MEDS: carvediloL 6.25 MG TAB PO SCH (20:33)
[2021-06-28] MEDS: NA CHLORIDE 0.9% 1,000 ML IV SCH ×2 (01:20→03:18)
[2021-06-28] MEDS ORDERED: GUAIFENESIN/DM 5 ML UCUP PO PRN (04:38)
[2021-06-28] MEDS: PHENOL 1.4% ORAL SPRAY 180ML MM PRN ×3 (05:13→21:13)
[2021-06-28] MEDS: HYDRALAZINE HCL 20 MG/ML VIAL IV PRN ×3 (05:13→17:28)
[2021-06-28] MEDS: ACETAMINOPHEN 500 MG TAB PO SCH ×4 (05:13→21:13)
--- NOTE | 2021-06-28 05:44 | P.PN ---
Subjective Date of Service: 06/28/21 Primary Care Provider: Rodney Chief Complaint: right pleural effusion Subjective: Other (He reports feeling very weak.) Physical Examination - Vital Signs Temperature: 97 F Blood Pressure: 208/99 Pulse: 69 Respirations: 18 Pulse Ox (%): 94 - Physical Exam General: Other (appears chronically ill) HEENT: Atraumatic, Normocephalic Neck: Supple, JVD not distended Respiratory: Other (symmetric chest expansion) Cardiovascular: No rubs, No murmurs Gastrointestinal: Soft and benign, No guarding Musculoskeletal: No clubbing Integumentary: No warmth Neurological: Normal tone Urinary: Other (no bladder distention) External genitalia: Deferred Rectal: Deferred Assessment And Plan - Plan # DEWEY 2/2 accelerated Htn +/- prerenal/ATN & diuretic use Serum creatinine 3.8 on admission, today at 3.6 Urinalysis showed 2+ proteinuria but no hematuria or pyuria CPK 68, within normal limits, no rhabdo BNP sig elevated Hold furosemide Dc IV fluid d/t uncontrolled Htn [place] po fluid intake Monitor renal panel # 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 if there is urine protein, will send workup for paraprotein disease # Htn BP above goal Renal Doppler ultrasound showed no renal artery stenosis as above Prior workup for pheochromocytoma was negative with normal urine metanephrines Dc IV fluid Resume hydralazine 50 mg by mouth 3 times a day Resume clonidine po home dosing Increase hydralazine 10 mg IV from q6h to q4h prn for SBP > 160 mmHg Hold furosemide # BLE edema, large R pleural effusion +nodular liver Improved Hold furosemide # Hyponatremia 2/2 high ADH state Serum Na 132 Do NOT restrict po fluid intake unless serum Na drops < 130 # Acute respi alkalosis ABG on 06/28 showed primary acute respi alklalosis w/ NAGMA Likely 2/2 anxiety # NAGMA Continue sodium bicarbonate 650 mg po bid # Anemia Monitor H/H No indication for MICHAEL # Hyperuricemia Serum uric acid elevated at 10.2 Start allopurinol 100 mg by mouth every weekly, renally dosed # Secondary hyperparathyroidism PTH elevated at 161 Follow-up 25-hydroxy vitamin D level # ? Depression Per primary team # Dispo Dc when BP controlled Physician Review: Patient Assessed, Agree with Above Assessment and Plan
[2021-06-28 07:07] LABS: Absolute Lymphocytes (CBC) 0.8 K/uL (0.7-4.9); Hematocrit 32.5 % (39.6-49.0); Lymphocytes % 10.4 % (15.3-44.8); MPV 8.4 fL (7.6-11.3); Protime INR 1.66; RBC Red Blood Cell Count 3.46 M/uL (4.33-5.43)
[2021-06-28 07:18] LABS: Albumin 3.2 g/dL (3.4-5.0); Bilirubin Total 0.7 mg/dL (0.2-1.0); Potassium 3.7 mmol/L (3.5-5.1); Protein, Total 7.6 g/dL (6.4-8.2)
[2021-06-28 07:31] LABS: Albumin 3.2 g/dL (3.4-5.0); Phosphorus 3.3 mg/dL (2.5-4.9); Potassium 3.7 mmol/L (3.5-5.1); Uric Acid 10.2 mg/dL (3.5-7.2)
[2021-06-28 07:36] LABS: Thyroid Stimulating Hormone 14.2 uIU/mL (0.360-3.740)
[2021-06-28] MEDS: carvediloL 6.25 MG TAB PO SCH ×2 (08:26→21:13)
[2021-06-28] MEDS: SODIUM BICARB 325 MG TAB PO SCH ×2 (08:27→21:13)
[2021-06-28] MEDS ORDERED: NIFEDIPINE XL 30 MG TABLET PO SCH (10:30)
[2021-06-28 11:03] LABS: Arterial Blood Carboxyhemoglob 1.1 % (0-1.5); Blood Gas Oxyhemoglobin 94.9 % (94-97); Blood O2 Saturation 97.3 % (92-98.5)
--- NOTE | 2021-06-28 11:35 | P.PN ---
Subjective Date of Service: 06/28/21 Primary Care Provider: Stevens Chief Complaint: right pleural effusion Review of Systems 10-point ROS is otherwise unremarkable Physical Examination - Vital Signs Temperature: 97.3 F Blood Pressure: 220/123 Pulse: 68 Respirations: 23 Pulse Ox (%): 97 - Physical Exam General: Alert, In no apparent distress HEENT: Atraumatic, PERRLA, EOMI Neck: Supple, JVD not distended Respiratory: Clear to auscultation bilaterally, Normal air movement Cardiovascular: Regular rate/rhythm, Normal S1 S2 Gastrointestinal: Normal bowel sounds, No tenderness Musculoskeletal: No tenderness Integumentary: No rashes Neurological: Normal speech, Normal tone, Normal affect Lymphatics: No axilla or inguinal lymphadenopathy Assessment And Plan - Current Problems (Diagnosis) (1) Pleural effusion, right Current Visit: Yes Status: Acute Plan: will start him on levaquin. Consult to Dr. Hines. No plans for thoracentesis. follow up with Dr. Hines. (2) HTN (hypertension) Current Visit: Yes Status: Acute Plan: continue his home medication of hydralazine. Will switch him to a clonodine tts for ease of administration. Qualifiers: Hypertension type: primary hypertension Qualified Code(s): I10 - Essential (primary) hypertension (3) Cerumen impaction Current Visit: Yes Status: Acute Plan: debrox to the right ear. he can follow up with his pcp for flushing of the ear. Qualifiers: Laterality: left Qualified Code(s): H61.22 - Impacted cerumen, left ear (4) Acute kidney injury Current Visit: No Status: Acute Plan: Consult to nephrology. 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 Will start him on d5 1/2 N saline. improving with fluids (5) Liver nodule Current Visit: Yes Status: Acute Plan: Patient drinks 1-3 beers daily. His pleural fluid may be from liver failure. Discharge Plan: Home Plan to discharge in: 24 Hours - Code Status/Comfort Care Code Status Assessed: No Physician Review: Patient Assessed, Agree with Above Assessment and Plan Critical Care: No Time Spent Managing PTS Care (In Minutes): 20
[2021-06-28] MEDS: HYDRALAZINE HCL 25 MG TABLET PO SCH ×2 (12:39→21:13)
--- NOTE | 2021-06-28 19:06 | RAD REPORT ---
EXAM DESCRIPTION: US - Abdomen Pelvis Scan US - 06/28/2021 5:29 pm CLINICAL HISTORY: High blood pressure Assess for right renal artery stenosis via doppler COMPARISON: Abdomen Pelvis Scan US dated 04/09/2021 FINDINGS: The right kidney measures 9.3 x 4.4 cm and has an echogenic appearance. The left kidney is atrophic measuring 5.5 x 3.7 cm. Aortic velocity: 127 cm/second Right proximal renal artery: 62 cm/second Right mid renal artery: 40 cm/second Right distal renal artery: 38 cm/second Right renal arcuate artery resistive index: 0.8 The left renal artery was suboptimally visualized. IMPRESSION: No sonographic finding to indicate right-sided renal artery stenosis. The right kidney is echogenic suggesting underlying medical renal disease. The left kidney is atrophic in suboptimally visualized. Left renal artery was not well seen or evalua anthony.
[2021-06-28] MEDS ORDERED: Levofloxacin500mg IV 500 MG/100 ML BAG IV SCH (21:00)
[2021-06-28 22:44] VITALS: O2SAT 96
[2021-06-29 05:19] LABS: UR PROTEIN 227.1 mg/dL (<11.9); Urine Protein/Creatinine Ratio 2.1 ratio (<0.15)
--- NOTE | 2021-06-29 05:35 | P.PN ---
Subjective Date of Service: 06/29/21 Primary Care Provider: Rodney Chief Complaint: right pleural effusion Subjective: No new changes Physical Examination - Vital Signs Temperature: 98.1 F Blood Pressure: 170/88 Pulse: 69 Respirations: 16 Pulse Ox (%): 94 - Physical Exam General: Alert, Other (appears as his stated age) HEENT: Atraumatic, Normocephalic Neck: Supple, JVD not distended Respiratory: Normal air movement Cardiovascular: No rubs, No murmurs Gastrointestinal: Soft and benign, No guarding Musculoskeletal: No clubbing Neurological: Normal speech, Normal tone, Other (hard of hearing) Urinary: Other (no bladder distention) External genitalia: Deferred Rectal: Deferred Assessment And Plan - Plan # DEWEY 2/2 accelerated Htn +/- prerenal/ATN & diuretic use Serum creatinine 3.8 on admission, improved to 3.3 today Urinalysis showed 2+ proteinuria but no hematuria or pyuria CPK 68, within normal limits, no rhabdo BNP sig elevated Hold furosemide Repeat urine chem on 06/28/21 showed he is no longer prerenal [place] po fluid intake at least 2L/d Monitor renal panel # 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 Prieto Baseline SCr 1.7-1.9 (equivalent GFR of 33-38 mL/min) as of July 2020 Per patient's son, his baseline GFR more recently is around 17 mL/min CT imaging showed dense right renal artery calcifications, atrophic left kidney Renal Doppler ultrasound done on 06/28/21 showed no renal artery stenosis # Serum protein gap No urine protein gap. Hold off on paraprotein disease workup # Htn BP above goal Renal Doppler ultrasound showed no renal artery stenosis as above Prior workup for pheochromocytoma was negative with normal urine metanephrines Increase hydralazine to 100 mg by mouth 3 times a day Cont clonidine patch Carvedilol dose already optimized Hold furosemide # BLE edema, large R pleural effusion +nodular liver Improved Hold furosemide # Hyponatremia 2/2 high ADH state Serum Na improved to 135 Do NOT restrict po fluid intake unless serum Na drops < 130, to avoid/minimize DEWEY # Acute respi alkalosis ABG on 06/28 showed primary acute respi alklalosis w/ NAGMA Likely 2/2 anxiety # NAGMA Continue sodium bicarbonate 650 mg po bid # Anemia Monitor H/H No indication for MICHAEL # Hyperuricemia Serum uric acid elevated at 10.2 Started on allopurinol 100 mg by mouth every weekly # Secondary hyperparathyroidism PTH elevated at 161 25-hydroxy vitamin D level wnl Hold off on calcitriol # ? Depression +Anxiety disorder Per primary team Physician Review: Patient Assessed, Agree with Above Assessment and Plan
[2021-06-29] MEDS: HYDRALAZINE HCL 20 MG/ML VIAL IV PRN (06:20)
[2021-06-29 06:43] LABS: Absolute Lymphocytes (CBC) 0.6 K/uL (0.7-4.9); Hematocrit 33.8 % (39.6-49.0); Lymphocytes % 8.7 % (15.3-44.8); RBC Red Blood Cell Count 3.62 M/uL (4.33-5.43)
[2021-06-29 07:10] LABS: Albumin 3.1 g/dL (3.4-5.0); Bilirubin Total 0.6 mg/dL (0.2-1.0); Potassium 3.6 mmol/L (3.5-5.1); Protein, Total 7.4 g/dL (6.4-8.2)
[2021-06-29 07:11] LABS: Phosphorus 3.4 mg/dL (2.5-4.9)
[2021-06-29] MEDS: SODIUM BICARB 325 MG TAB PO SCH (08:51)
[2021-06-29] MEDS: HYDRALAZINE HCL 25 MG TABLET PO SCH (08:52)
[2021-06-29] MEDS: carvediloL 6.25 MG TAB PO SCH (08:52)
[2021-06-29] MEDS: ACETAMINOPHEN 500 MG TAB PO SCH (08:53)
[2021-06-29] MEDS ORDERED: allopurinoL 100 MG TAB PO SCH (09:00)
--- NOTE | 2021-06-29 09:49 | P.DS ---
Admission Date: 06/26/21 Discharge Date: 06/29/21 Primary Care Provider: Rodney Disposition: ROUTINE DISCHARGE Discharge Condition: GOOD Reason for Admission: right pleural effusion - Problems (1) Pleural effusion, right Current Visit: Yes Status: Acute (2) HTN (hypertension) Current Visit: Yes Status: Acute Qualifiers: Hypertension type: primary hypertension Qualified Code(s): I10 - Essential (primary) hypertension (3) Cerumen impaction Current Visit: Yes Status: Acute Qualifiers: Laterality: left Qualified Code(s): H61.22 - Impacted cerumen, left ear (4) Acute kidney injury Current Visit: No Status: Acute (5) Liver nodule Current Visit: Yes Status: Acute Brief History of Present Illness: Patient is a pleasant gentleman with a history of htn, cad and mild cognitive impairment. He woke up this morning and complained of some left ear pain. He then started acting confused and his family brought him to the ER. The patient had a negative CT scan of the head. However cxr and ct of the abdomen showed a right sided pleural effusion his creatine is also elevated from the baseline 1.7 to 3.8. the patient will be admitted he is resting comfortable. Hospital Course: Patient was admitted for pleural effusion. CKD stage 4. He was seen by Dr. Hines. No role for thoracentesis. His kidney function is at his baseline. Blood pressure was difficult to control. However this is a chronic problem for this patient. He is agitated this morning about being in the hospital and would like to go home. Will have him seen by Dr. Bui. His family, the patient and I feel that going home will be the best thing for his blood pressure. All his other medical problems are stable. Will let him be seen by Dr. Bui. If he has no complaints will discharge him home. Vital Signs/Physical Exam: Temp Pulse Resp BP Pulse Ox 96.9 F 68 20 226/101 H 99 06/29/21 08:00 06/29/21 08:52 06/29/21 08:00 06/29/21 08:52 06/29/21 08:00 General: Alert, In no apparent distress HEENT: Atraumatic, PERRLA, EOMI Neck: Supple, JVD not distended Respiratory: Clear to auscultation bilaterally, Normal air movement Cardiovascular: Regular rate/rhythm, Normal S1 S2 Gastrointestinal: Normal bowel sounds, No tenderness Musculoskeletal: No tenderness Integumentary: No rashes Neurological: Normal speech, Normal tone, Normal affect Lymphatics: No axilla or inguinal lymphadenopathy Laboratory Data at Discharge: WBC 6.90 K/uL (4.3-10.9) 06/29/21 06:08 Hgb 11.2 g/dL (13.6-17.9) L 06/29/21 06:08 Hct 33.8 % (39.6-49.0) L 06/29/21 06:08 Plt Count 192 K/uL (152-406) 06/29/21 06:08 PT 19.2 SECONDS (9.5-12.5) H 06/28/21 06:30 INR 1.66 06/28/21 06:30 Sodium 135 mmol/L (136-145) L 06/29/21 06:08 Potassium 3.6 mmol/L (3.5-5.1) 06/29/21 06:08 BUN 54 mg/dL (7-18) H 06/29/21 06:08 Creatinine 3.32 mg/dL (0.55-1.3) H 06/29/21 06:08 Glucose 129 mg/dL (74-106) H 06/29/21 06:08 Uric Acid 10.2 mg/dL (3.5-7.2) H 06/28/21 06:30 Phosphorus 3.4 mg/dL (2.5-4.9) 06/29/21 06:08 Magnesium 2.1 06/26/21 14:09 Total Bilirubin 0.6 mg/dL (0.2-1.0) 06/29/21 06:08 AST 30 U/L (15-37) 06/29/21 06:08 ALT 23 U/L (12-78) 06/29/21 06:08 Alkaline Phosphatase 83 U/L (45-117) 06/29/21 06:08 Lipase 345 U/L (73-393) 06/26/21 14:09 Home Medications: Apixaban [Eliquis] 2.5 mg PO BID #60 08/15/20 Hydralazine HCl 50 mg PO TID #90 tablet 08/15/20 Na Bicarb Tab [Sodium Bicarb 325 MG Tab*] 650 mg PO BID #120 tab 08/15/20 cloNIDine HCL [Catapres*] 0.2 mg PO TID #180 tab 08/15/20 Clonidine [Catapres-Tts 2] 0.2 mg TD WMP #10 patch.tdwk 06/29/21 New Medications: Clonidine [Catapres-Tts 2] 0.2 mg TD WMP #10 patch.tdwk Followup: Laura Quick MD [COURTESY - CAN ADMIT] - 1 Week Radha Seth FNP [Primary Care Provider] - 1-2 Weeks Brad Copeland MD [ACTIVE - CAN ADMIT] - 1-2 Weeks Time spent managing pt's care (in minutes): 35
[2021-06-29 10:14] VITALS: BP 170/88; TEMP 98.1
[2021-06-29] MEDS ORDERED: HYDRALAZINE HCL 25 MG TABLET PO SCH (14:00)
[2021-06-29 14:12] LABS: Magnesium 2.1
--- NOTE | 2021-06-29 20:46 | CON ---
Date of Consultation: 06/29/[address] Carcamo on 06/26/2021. I saw him on 06/29/2021. Reason For Consultation: Hypertension and pleural effusion. History Of Present Illness: Mr. Cox, I believe, is 86 years old, has a history of severe hyperten neda and carotid endarterectomy, chronic renal disease, coronary artery disease that is mild, severe hypertension, very difficult to control. Has had normal renal Doppler in the past. Came in with hank rtness of breath, pleural effusion and severe hypertension. He was seen by Dr. Copeland who wants to watch the effusion and consider thoracentesis down the road if his symptoms increase. Patient with a creatinine of 3.32. Blood pressure was 226/101, when he came in. He does have paroxysmal atrial f ibrillation at home, for which he takes Eliquis. He is asymptomatic now. Blood pressure is still po ashwin controlled. Past Medical History: As stated above. Allergies: NONE. Review of Systems: Negative. Social History: Negative. Family History: Noncontributory. Medications: At home, include Eliquis, hydralazine, and clonidine. Physical Examination: General: He was asymptomatic. Vital Signs: Still hypertensive, sinus rhythm. HEENT: Negative. Neck: Supple. No bruit. Chest: Clear. Cardiac: Exam revealed a regular rhythm and rate with an S4 gallop. No murmurs or rubs. Abdomen: Benign. Extremities: Revealed no clubbing, cyanosis, or edema. Diagnostic Data: As stated earlier. Impression And Plan: Hypertensive crisis. He has had a negative pheochromocytoma workup, negative r enal Doppler. Has carotid disease, status post endarterectomy, mild coronary artery disease, severe renal insufficiency, which may be exacerbating his blood pressure. He is not a candidate for BINTA inh ibitors or ARB. I think we can treat him with calcium noé, but I think he needs to be on hydrala zine 100 mg t.i.d., clonidine patch, and we should consider adding Procardia or Norvasc to his regime n. He was on Coreg, but that was discontinued because of interaction with clonidine. He can go home . Continue his hydralazine 100 three times a day, clonidine patch and clonidine p.r.n. plus Eliquis, and I will see him in the office in the very near future. The case was discussed with Dr. Carcamo. O f note, that he has cirrhosis, which is new finding. He also has a pleural effusion that Dr. Catie burt will follow. RAINE/SALMA Voice ID: [id number] Report ID: [id number]
--- NOTE | 2021-06-30 14:45 | EKG ---
Test Date: 2021-06-28 Test Time: 22:31:11 Library Director: SREG MEASUREMENT RESULTS: Intervals: Rate: 68 [place]: QRSD: 152 QT: 498 QTc: 529 [place]: P: AK: QRS: 100 T: 77 INTERPRETIVE STATEMENTS: Atrial fibrillation Right bundle branch block Septal infarct, age undetermined T wave abnormality, consider lateral ischemia or digitalis effect Abnormal ECG Compared to ECG 06/26/2021 13:59:28 Ventricular premature complex(es) no longer present Myocardial infarct finding still present T-wave abnormality still present Possible ischemia still present Electronically Signed On 06-30-21 14:43:55 RESOURCE MANAGER by Rory Bui
[2021-07-03] MEDS ORDERED: CLONIDINE 0.1 MG/PATCH TD SCH (09:00)
== END 2021-06-29 11:45 | disposition home health service (06) | DRG 187 ==
LOC: ER 12:38 → ERHOLD 19:54 → 2ND 21:10
PROVIDERS: ADMIT Internal Medicine; ATTEND Internal Medicine
DX: J90 Pleural effusion, not elsewhere classified (principal); N17.9 Acute kidney failure, unspecified; E87.1 Hypo-osmolality and hyponatremia; E87.3 Alkalosis; N18.4 Chronic kidney disease, stage 4 (severe); N25.81 Secondary hyperparathyroidism of renal origin; E87.2 Acidosis; I16.9 Hypertensive crisis, unspecified; I12.9 Hypertensive chronic kidney disease with stage 1 through stage 4 chronic kidney disease, or unspecified chronic kidney disease; I48.0 Paroxysmal atrial fibrillation; E86.0 Dehydration; D63.8 Anemia in other chronic diseases classified elsewhere; H61.22 Impacted cerumen, left ear; I25.10 Atherosclerotic heart disease of native coronary artery without angina pectoris; Z79.01 Long term (current) use of anticoagulants; Z87.891 Personal history of nicotine dependence; Z79.899 Other long term (current) drug therapy; Z20.822 Contact with and (suspected) exposure to COVID-19
CPT/HCPCS: 36415; 70450; 71045; 71046; 74176; 76705; 80048; 80053; 80069; 80076; 81003; 81015; 82306; 82550; 82570; 82805; 83690; 83735; 83880; 83935; 83970; 84100; 84132; 84156; 84300; 84439; 84443; 84484; 84550; 85025; 85610; 93005; 93975; 96374; 96375; 97110; 97116; 97161; 99285; J0360; J0456; J2405; J7030; J7050; J7799; J8597; U0003

== ENCOUNTER 2021-07-29 11:06 | Inpatient (IN) | payer OTHER ==
--- OUTSIDE RECORDS SUMMARY | 2021-07-29 11:11 | XMS REPORT | Continuity of Care Document ---
:1935 Author Organization [facility] t Address [address] [place] [address] Care Team Providers Name Role Phone CHAPARRO HUGHES Attending Clinician Unavailable CHAPARRO HUGHES Admitting Clinician Unavailable Problems This patient has no known problems. Allergies, Adverse Reactions, Alerts Allergy Allergy Status Severity Reaction(s) Onset Inactive Treating Comm ents Source Name Type Date Date Clinician AMLODIPI Allergy Active High Hives [facility] Medications This patient has no [...] GRAM STAIN RESULT (BEAKER) (test code = 45683) No organisms seen RAD, CHEST, 1 VIEW, NON [id number] 12:42:00Reason for exam:->pleural effusionShould this be performed at the bedside?->YesFINAL REPORT INDICATION: pleural effusion COMPARISON:September 06 TECHNIQUE: Chest radiograph, single view, portable technique. FINDINGS / IMPRESSION: No pleural effusion is demonstrated. No consolidation, pneumothorax, or pulmonary edema. Heart shadow is prominent. Osseous structures unremarkable. Signed: Edgar Lee MDReport Verified Date/Time: 09/08/2018 12:42:40 Reading Location: [facility] B1 C013W Consult Reading Room Electronically signed by: EDGAR LEE M.D. on09/08/2018 12:42 [id number] 05:01:00 Test Item Value Reference Range Interpretation Comments MAGNESIUM (BEAKER) (test code = 1.5 mg/dL 1.6-2.6 L 627) BASIC METABOLIC [id number] 05:01:00 Test Item Value Reference Range Interpretation [...] PATIEN TS. CBC W/PLT COUNT & AUTO [id number] 04:41:00 Test Item Value Reference Range Interpretation [...] 0-1 PERCENT (BEAKER) (test code = 2801) [id number] 15:48:00Medical Cytology Report Case: [id number] Authorizing Provider: Giancarlo Joseph MD Collected: 09/06/2018 1551 Ordering Location: [address] Received: 09/07/2018 1302 Service Pathologist: Ervin Crawford MD Specimen: Pleural, Right RIGHT PLEURAL FLUID (CYTOSPINS): - NEGATIVE FOR MALIGNANCY - Inflammation present Signing Pathologist Direct Phone Line: [phone] signed by Ervin Crawford MD on 09/07/2018 at 3:48 [id number] pleural effusion; HTN, HLD, afib, CKD 3/4 who presented on 08/30 for elective carotid endarterectomy for symptomatic left carotid stenosis 50-60%RIGHT PLEURAL FLUIDPrepared 4 cytospins from 1100 ml yellow fluidCollected: [id number]: [id number] [facility], Department of Pathology, [address] [place] [address], [facility], [facility] of Pathology, [address] [place] [address], [facility]ouwjLos [facility], Department of Pathology, [address] [place] [address], ETHORXVWXC, [id number] 07:16:00 Test Item Value Reference Range Interpretation Comments OSMOLALITY, SERUM 271 mOsm/kg 275-295 L Performed at [facility] ([email or web address]) (test Laboratories code = 615) OSMOLALITY, [id number] 07:15:00 Test Item Value Reference Range Interpretation Comments OSMOLALITY URINE 221 mOsm/kg 40-1,400 Performed a t [facility] ([email or web address]) (test code Laborato mey = 614) [id number] 04:41:00 Test Item Value Reference Range Interpretation Comments MAGNESIUM (BEAKER) (test code = 1.7 mg/dL 1.6-2.6 627) BASIC METABOLIC [id number] 04:41:00 Test Item Value Reference Range Interpretation [...] PATIEN TS. CBC W/PLT COUNT & AUTO [id number] 04:10:00 Test Item Value Reference Range Interpretation [...] (test code = 2801) CT, CHEST, WITHOUT [id number] 21:27:00FINAL REPORT CT scan of the chest. [...] MDReport Verified Date/Time: 09/06/2018 21:27:37 Reading Location: [address] Consult Reading Room U/S, RENAL WITH [id number] 21:10:00Reason for exam:->renal artery stenosisFINAL REPORT Renal [...] Montero Verified Date/Time: 09/06/2018 21:10:02 Reading Location: [address] Consult Reading Room U/S, THORACENTESIS 2018-09-06 17:31:00Laterality?->RightReason [...] 1% lidocaine anesthesia was administered. A 4 Fijian catheter was advanced into the pleural cavity and 1500 mL of clear yellow fluid was removed. The catheter was removed without immediate complication. Samples were sent for analysis. IMPRESSION: Uncomplicated ultrasound-guidedright thoracentesis with 1500 mL of fluid removed. Signed: Parth Tanner Verified Date/Time: 09/06/2018 17:31:20 Reading Location: [address] Ultrasound Reading Room Electronically signedby: PARTH TANNER MD on 09/06/2018 05:31 PMRAD, CHEST, 1 VIEW, NON [id number] 17:27:00Reason for exam:->thoracentesisShould this be performed at [...] MDReport Verified Date/Time: 09/06/2018 17:27:36 Reading Location: [address] Ultrasound Reading Room BODY FLUID CELL COUNT WITH [id number] 17:06:00 Test Item Value Reference Range Interpretation [...] code = 2873) LACTATE DEHYDROGENASE (LDH), BODY [id number] 16:51:00 Test Item Value Reference Range Interpretation Comments LACTATE DEHYDROGENASE FLUID < U/L Light's criteria (BEAKER) (test code = 634) identifies effusions if one or more are pre Absence of reference range indicates that normals have not been defined.Assay performance has not been validated for this type of specimen.PLeural fluidPleural fluidPleural fluidPROTEIN, BODY [id number] 16:51:00 Test Item Value Reference Range Interpretation Comments PROTEIN FLUID (BEAKER) 2.0 g/dL Light's criteria identifies (test code = 579) effusions if one or more are pre Absence of reference range indicates that normals have not been defined.Assay performance has not been validated for this type of specimen.PLeural fluidPleural fluidPleural fluidGLUCOSE, BODY [id number] 16:51:00 Test Item Value Reference Range Interpretation Comments GLUCOSE, BODY FLUID (BEAKER) (test 128 mg/dL 70-110 H code = 1528) Absence of reference range indicates that normals have not been defined.Assay performance has not been validated for this type of specimen.PLeural fluidPleural fluidPleural fluidPH, BODY [id number] 16:46:00 Test Item Value Reference Range Interpretation Comments PH, BODY FLUID (BEAKER) (test code = 7.72 1530) RAD, CHEST, 1 VIEW, NON [id number] 16:35:00Reason for exam:->Right thoracentesisShould this be performed [...] MDReport Verified Date/Time: 09/06/2018 16:35:40 Reading Location: [place] [id number] Ultrasound Reading Room PROTHROMBIN [id number] 10:30:00 Test Item Value Reference Range Interpretation Comments PROTIME (BEAKER) (test code = 14.4 seconds 11.7-14.7 759) INR (BEAKER) (test code = 370) 1.1 <=5.9 RECOMMENDED COUMADIN/WARFARIN INR THERAPY RANGESSTANDARD DOSE: 2.0 - 3.0 Includes: PROPHYLAXIS forvenous thrombosis, systemic embolization; TREATMENT for venous thrombosis and/or pulmonary embolus.HIGH RISK: Target INR is 2.5-3.5 for patients with mechanical heart valves.[id number] 06:23:00 Test Item Value Reference Range Interpretation Comments MAGNESIUM (BEAKER) (test code = 1.7 mg/dL 1.6-2.6 627) BASIC METABOLIC [id number] 06:23:00 Test Item Value Reference Range Interpretation [...] PATIEN TS. CBC W/PLT COUNT & AUTO [id number] 05:01:00 Test Item Value Reference Range Interpretation [...] 0-1 PERCENT (BEAKER) (test code = 2801) [id number] 08:33:00 Test Item Value Reference Range Interpretation Comments MAGNESIUM (BEAKER) (test code = 1.8 mg/dL 1.6-2.6 627) BASIC METABOLIC [id number] 08:33:00 Test Item Value Reference Range Interpretation [...] PATIEN TS. CBC W/PLT COUNT & AUTO [id number] 05:30:00 Test Item Value Reference Range Interpretation [...] PERCENT (BEAKER) (test code = 2801) POCT-GLUCOSE [id number] 21:27:00 Test Item Value Reference Range Interpretation Comments POC-GLUCOSE METER 124 mg/dL 70-110 H TESTED AT [place] [address] (BEAKER) (test code = LOLI Strange [facility] 1538) [address] POCT-GLUCOSE [id number] 17:49:00 Test Item Value Reference Range Interpretation Comments POC-GLUCOSE METER 111 mg/dL 70-110 H TESTED AT [place] [address] (BEAKER) (test code = LOLI Strange [place] 1538) [address] POCT-GLUCOSE [id number] 12:53:00 Test Item Value Reference Range Interpretation Comments POC-GLUCOSE METER 150 mg/dL 70-110 H TESTED AT [place] [address] ([facility]) (test code = LOLI Strange [place] 1538) [address] [id number] 09:38:00 Test Item Value Reference Range Interpretation Comments MAGNESIUM (BEAKER) (test code = 1.8 mg/dL 1.6-2.6 627) BASIC METABOLIC [id number] 09:38:00 Test Item Value Reference Range Interpretation [...] NOT APPLICABLE FOR DIALYSIS PATIEN TS. POCT-GLUCOSE [id number] 08:29:00 Test Item Value Reference Range Interpretation Comments POC-GLUCOSE METER 107 mg/dL 70-110 TESTED AT [place] [address] ([facility]) (test code = LOLI Strange [facility] 1538) [address] CBC W/PLT COUNT & AUTO [id number] 04:36:00 Test Item Value Reference Range Interpretation [...] (test code = 2801) RAD, CHEST, 2 [id number] 22:22:00Reason for exam:->sobShould this be performed at [...] pneumothorax or acute bony abnormality. Signed: Ricci Conn MDReport Verified Date/Time: 09/03/2018 22:22:15 Reading Location: [address] Reading Room POCT-GLUCOSE [id number] 21:33:00 Test Item Value Reference Range Interpretation Comments POC-GLUCOSE METER 163 mg/dL 70-110 H TESTED AT [place] [address] ([facility]) (test code = [facility] 1538) [address] POCT-GLUCOSE [id number] 18:08:00 Test Item Value Reference Range Interpretation Comments POC-GLUCOSE METER 202 mg/dL 70-110 H TESTED AT [place] [address] ([facility]) (test code = [facility] 1538) [address] [id number] 17:40:00 Test Item Value Reference Range Interpretation Comments PROTIME ([email or web address]) (test code = 13.9 seconds 11.7-14.7 759) INR ([facility]) (test code = 370) 1.0 <=5.9 PARTIAL THROMBOPLASTIN TIME 25.4 seconds 22.5-36.0 ([facility]) (test code = 760) RECOMMENDED COUMADIN/WARFARIN INR THERAPY RANGESSTANDARD DOSE: 2.0 - 3.0 Includes: PROPHYLAXIS forvenous thrombosis, systemic embolization; TREATMENT for venous thrombosis and/or pulmonary embolus.HIGH RISK: Target INR is 2.5-3.5 for patients with mechanical heart valves.PROTHROMBIN [id number] 17:39:00 Test Item Value Reference Range Interpretation Comments PROTIME (BEAKER) (test code = 13.9 seconds 11.7-14.7 759) INR (BEAKER) (test code = 370) 1.0 <=5.9 RECOMMENDED COUMADIN/WARFARIN INR THERAPY RANGESSTANDARD DOSE: 2.0 - 3.0 Includes: PROPHYLAXIS forvenous thrombosis, systemic embolization; TREATMENT for venous thrombosis and/or pulmonary embolus.HIGH RISK: Target INR is 2.5-3.5 for patients with mechanical heart valves.POCT-GLUCOSE [id number] 14:56:00 Test Item Value Reference Range Interpretation Comments POC-GLUCOSE METER 110 mg/dL 70-[address] [facility] 6720 (BEAKER) (test code = [facility] Alie [facility] 1538) [address] POCT-GLUCOSE [id number] 07:48:00 Test Item Value Reference Range Interpretation Comments POC-GLUCOSE METER 100 mg/dL 70-[address] [facility] 6720 (BEAKER) (test code = [facility] 1538) [address] [id number] 05:26:00 Test Item Value Reference Range Interpretation Comments MAGNESIUM (BEAKER) (test code = 1.9 mg/dL 1.6-2.6 627) BASIC METABOLIC [id number] 05:26:00 Test Item Value Reference Range Interpretation [...] S NOT APPLICABLE FOR DIALYSIS PATIEN TS. [id number] 05:24:00 Test Item Value Reference Range Interpretation Comments CORTISOL, TOTAL (BEAKER) (test 19.5 ug/dL 3.7-19.4 H code = 3375) CBC W/PLT COUNT & AUTO [id number] 04:46:00 Test Item Value Reference Range Interpretation [...] 2801) RAD, CHEST, PA OR AP, 1 [id number] 00:40:00Reason for exam:->r/o infiltratesFINAL REPORT History: Shortness [...] MDReport Verified Date/Time: 09/03/2018 00:40:23 Reading Location: [address] Reading Room POCT-GLUCOSE [id number] 23:13:00 Test Item Value Reference Range Interpretation Comments POC-GLUCOSE METER 124 mg/dL 70-[address] [facility] 6720 (BEAKER) (test code = LOLI Strange [facility] 1538) [address] SODIUM, RANDOM [id number] 18:20:00 Test Item Value Reference Range Interpretation Comments SODIUM URINE (BEAKER) (test code = 23 meq/L 243) Reference Range: No NormalsBASIC METABOLIC [id number] 17:50:00 Test Item Value Reference Range Interpretation [...] NOT APPLICABLE FOR DIALYSIS PATIEN TS. TISSUE [id number] 16:34:00Surgical Pathology Report Case: [id number] Authorizing Provider: Palomo Hughes, Collected: 08/30/2018 0859 Ordering Location: [facility] Received: 08/30/2018 1024 PERIOPERATIVE SERVICES Pathologist: Gibson Tinoco MD Specimen: Plaque, Left carotid artery plaque ARTERY, LEFT CAROTID, ENDARTERECTOMY:CALCIFIC ATHEROSCLEROTIC PLAQUE Signing Pathologist Direct Phone Line: [phone]; [phone] stenosisleft sideLeft carotid artery plaqueThe specimen is received in a formalin-filled container and labeled with the patient's information labeled "left carotid artery plaque" and consists of a tubular-shaped segment of lincoln calcified tissue measuring 3 cm in length x 0.6 cm in diameter. Chip Machine Operator sections are submitted A1 for decalcification. CG/pl Performed TSH/FREE T4 IF [id number] 13:02:00 Test Item Value Reference Range Interpretation Comments THYROID STIMULATING HORMONE 4.43 uIU/mL 0.35-4.94 (BEAKER) (test code = 772) POCT-GLUCOSE [id number] 08:14:00 Test Item Value Reference Range Interpretation Comments POC-GLUCOSE METER 129 mg/dL 70-[address] [facility] 6720 [facility] (test code = [facility] 1538) [address] BASIC METABOLIC [id number] 05:21:00 Test Item Value Reference Range Interpretation [...] S NOT APPLICABLE FOR DIALYSIS PATIEN TS. [id number] 05:18:00 Test Item Value Reference Range Interpretation Comments MAGNESIUM (BEAKER) (test code = 1.8 mg/dL 1.6-2.6 627) CBC W/PLT COUNT & AUTO [id number] 04:58:00 Test Item Value Reference Range Interpretation [...] PERCENT (BEAKER) (test code = 2801) POCT-GLUCOSE [id number] 21:12:00 Test Item Value Reference Range Interpretation Comments POC-GLUCOSE METER 156 mg/dL 70-[address] [facility] 6720 [facility] (test code = [facility] 1538) [address] POCT-GLUCOSE [id number] 18:50:00 Test Item Value Reference Range Interpretation Comments POC-GLUCOSE METER 154 mg/dL 70-[address] [facility] 67 ([facility] (test code = [facility] 1538) [address] POCT-GLUCOSE [id number] 12:31:00 Test Item Value Reference Range Interpretation Comments POC-GLUCOSE METER 152 mg/dL 70-110 H TESTED AT [place] [address] (BEAKER) (test code = [facility] 1538) [address] CALCIUM, [id number] 06:47:00 Test Item Value Reference Range Interpretation Comments CALCIUM IONIZED (BEAKER) (test 1.04 mmol/L 1.12-1.27 L code = 698) PH, BLOOD (BEAKER) (test code = 7.33 1810) CBC W/PLT COUNT & AUTO [id number] 06:05:00 Test Item Value Reference Range Interpretation [...] 0-1 PERCENT (BEAKER) (test code = 2801) [id number] 06:03:00 Test Item Value Reference Range Interpretation Comments PHOSPHORUS (BEAKER) (test code = 4.0 mg/dL 2.3-4.7 604) [id number] 06:03:00 Test Item Value Reference Range Interpretation Comments MAGNESIUM (BEAKER) (test code = 2.0 mg/dL 1.6-2.6 627) BASIC METABOLIC [id number] 06:03:00 Test Item Value Reference Range Interpretation [...] NOT APPLICABLE FOR DIALYSIS PATIEN TS. POCT-GLUCOSE [id number] 21:11:00 Test Item Value Reference Range Interpretation Comments POC-GLUCOSE METER 128 mg/dL 70-[address] [facility] 6720 (BEAKER) (test code = LOLI Strange [place] 1538) [address] POCT-GLUCOSE [id number] 20:59:00 Test Item Value Reference Range Interpretation Comments POC-GLUCOSE METER 135 mg/dL 70-[address] [facility] 6720 (BEAKER) (test code = LOLI Strange [place] 1538) [address] CALCIUM, [id number] 17:01:00 Test Item Value Reference Range Interpretation Comments CALCIUM IONIZED (BEAKER) (test 1.11 mmol/L 1.12-1.27 L code = 698) PH, BLOOD (BEAKER) (test code = 7.38 1810) [id number] 16:29:00 Test Item Value Reference Range Interpretation Comments MAGNESIUM (BEAKER) 2.6 mg/dL 1.6-2.6 Specimen markedly (test code = 627) hemolyzed [id number] 16:29:00 Test Item Value Reference Range Interpretation Comments POTASSIUM (BEAKER) 5.5 meq/L 3.5-5.1 H Specimen markedly (test code = 379) hemolyzed [id number] 16:29:00 Test Item Value Reference Range Interpretation Comments SODIUM (BEAKER) (test code = 381) 125 meq/L 136-145 L BASIC METABOLIC [id number] 14:09:00 Test Item Value Reference Range Interpretation [...] NOT APPLICABLE FOR DIALYSIS PATIEN TS. POCT-GLUCOSE [id number] 10:58:00 Test Item Value Reference Range Interpretation Comments POC-GLUCOSE METER 144 mg/dL 70-[address] [facility] 6720 (BEAKER) (test code = LOLI Strange [place] 1538) [address] [id number] 04:23:00 Test Item Value Reference Range Interpretation Comments PHOSPHORUS (BEAKER) (test code = 4.5 mg/dL 2.3-4.7 604) [id number] 04:23:00 Test Item Value Reference Range Interpretation Comments MAGNESIUM (BEAKER) (test code = 1.8 mg/dL 1.6-2.6 627) BASIC METABOLIC [id number] 04:23:00 Test Item Value Reference Range Interpretation [...] NOT APPLICABLE FOR DIALYSIS PATIEN TS. CALCIUM, [id number] 04:22:00 Test Item Value Reference Range Interpretation Comments CALCIUM IONIZED (BEAKER) (test 1.06 mmol/L 1.12-1.27 L code = 698) PH, BLOOD (BEAKER) (test code = 7.39 1810) BLOOD GAS, [id number] 04:18:00 Test Item Value Reference Range Interpretation [...] code = 1819) 24.0 % SODIUM NA-STAT [id number] 04:18:00 Test Item Value Reference Range Interpretation Comments SODIUM (BEAKER) (test code = 381) 123 meq/L 135-148 L GLUCOSE-STAT [id number] 04:18:00 Test Item Value Reference Range Interpretation Comments GLUCOSE RANDOM (BEAKER) (test code 163 mg/dL 70-110 H = 652) HGB/HCT (H&H) - STAT [id number] 04:18:00 Test Item Value Reference Range Interpretation Comments HEMOGLOBIN (BEAKER) (test code = 10.9 g/dL 13.0-16.8 L 410) HEMATOCRIT (BEAKER) (test code = 32.0 % 40.0-50.0 L 411) POTASSIUM-STAT [id number] 04:12:00 Test Item Value Reference Range Interpretation Comments POTASSIUM (BEAKER) (test code = 4.7 meq/L 3.6-5.5 379) CBC W/PLT COUNT & AUTO [id number] 04:05:00 Test Item Value Reference Range Interpretation [...] (BEAKER) (test code = 2801) BASIC METABOLIC [id number] 01:22:00 Test Item Value Reference Range Interpretation [...] I S NOT APPLICABLE FOR DIALYSIS PATIEN [id number] 11:02:00 Test Item Value Reference Range Interpretation Comments PARTIAL THROMBOPLASTIN TIME 32.6 seconds 22.5-36.0 (BEAKER) (test code = 760) PROTHROMBIN [id number] 11:01:00 Test Item Value Reference Range Interpretation Comments PROTIME (BEAKER) (test code = 16.3 seconds 11.7-14.7 H 759) INR (BEAKER) (test code = 370) 1.3 <=5.9 RECOMMENDED COUMADIN/WARFARIN INR THERAPY RANGESSTANDARD DOSE: 2.0 - 3.0 Includes: PROPHYLAXIS forvenous thrombosis, systemic embolization; TREATMENT for venous thrombosis and/or pulmonary embolus.HIGH RISK: Target INR is 2.5-3.5 for patients with mechanical heart valves.[id number] 10:54:00 Test Item Value Reference Range Interpretation Comments MAGNESIUM (BEAKER) (test code = 1.7 mg/dL 1.6-2.6 627) BASIC METABOLIC [id number] 10:54:00 Test Item Value Reference Range Interpretation [...] PATIEN TS. CBC W/PLT COUNT & AUTO [id number] 10:35:00 Test Item Value Reference Range Interpretation [...] PERCENT (BEAKER) (test code = 2801) POCT-GLUCOSE [id number] 06:17:00 Test Item Value Reference Range Interpretation Comments POC-GLUCOSE METER 114 mg/dL 70-[address] [facility] 6720 (BEAKER) (test code = LOLI Strange [facility] 1538) [address] HEMOGLOBIN [id number] 12:37:00 Test Item Value Reference Range Interpretation Comments HEMOGLOBIN A1C (BEAKER) (test code = 6.3 % 4.3-6.1 H 368) LIPID [id number] 12:05:00 Test Item Value Reference Range Interpretation [...] 100-129 Borderline 130-159 High 160-189 Very High >=[id number] 12:05:00 Test Item Value Reference Range Interpretation Comments MAGNESIUM (BEAKER) (test code = 2.2 mg/dL 1.6-2.6 627) COMPREHENSIVE METABOLIC [id number] 12:05:00 Test Item Value Reference Range Interpretation [...] NOT APPLICABLE FOR DIALYSIS PATIEN TS. PROTHROMBIN [id number] 11:57:00 Test Item Value Reference Range Interpretation Comments PROTIME (BEAKER) (test code = 14.9 seconds 11.7-14.7 H 759) INR (BEAKER) (test code = 370) 1.2 <=5.9 RECOMMENDED COUMADIN/WARFARIN INR THERAPY RANGESSTANDARD DOSE: 2.0 - 3.0 Includes: PROPHYLAXIS forvenous thrombosis, systemic embolization; TREATMENT for venous thrombosis and/or pulmonary embolus.HIGH RISK: Target INR is 2.5-3.5 for patients with mechanical heart valves.[id number] 11:57:00 Test Item Value Reference Range Interpretation Comments PARTIAL THROMBOPLASTIN TIME 32.0 seconds 22.5-36.0 (BEAKER) (test code = 760) CBC W/PLT COUNT & AUTO [id number] 11:48:00 Test Item Value Reference Range Interpretation [...] % 0-1 PERCENT (BEAKER) (test code = 1341)
[2021-07-29 12:34] LABS: RBC Red Blood Cell Count 3.59 M/uL (4.33-5.43)
[2021-07-29 12:35] LABS: Lymphocytes % 18.6 % (15.3-44.8); MPV 8.6 fL (7.6-11.3)
[2021-07-29 12:36] LABS: Protime INR 1.49
[2021-07-29 12:57] LABS: Bilirubin Direct 0.4 mg/dL (0-0.2); Protein, Total 7.5 g/dL (6.4-8.2)
[2021-07-29 13:01] LABS: Magnesium 2.3 mg/dL (1.8-2.4)
[2021-07-29 13:51] LABS: Albumin 3.7 g/dL (3.4-5.0)
--- NOTE | 2021-07-29 14:24 | RAD REPORT ---
EXAM DESCRIPTION: RAD - Chest Single View - 07/29/2021 2:06 pm CLINICAL HISTORY: DYSPNEA Chest pain. COMPARISON: Chest Pa And Lat (2 Views) dated 07/18/2021; Chest Single View dated 06/26/2021; Chest Sing le View dated 08/12/2020; Chest Pa And Lat (2 Views) dated 06/14/2019 FINDINGS: Portable technique limits examination quality. Moderate to large right pleural effusion is again seen. The left lung is grossly clear. The heart is mildly enlarged in size. No displaced fractures.
[2021-07-29 15:15] LABS: Troponin High Sensitivity 51.7 pg/mL (<58.9)
--- NOTE | 2021-07-29 15:40 | ER ---
Nurse's Notes [facility] Name: John Cox Age: 86 yrs Sex: Male : 1935 Arrival Date: 07/29/2021 Time: 11:08 Bed 2 Private MD: Diagnosis: Congestive heart failure, acute on chronic renal failure, peripheral edema Presentation: 07/29 11:15 Chief complaint: Patient's son or daughter states: "His home health nurse freaked out ab2 when she saw his legs this morning so she called Dr. Bui and he told us to come in." Pt c/o SOB and swollen legs. Coronavirus screen: Vaccine status: Patient reports receiving the 2nd dose of the covid vaccine. Client denies travel out of the [place] in the last 14 days. At this time, the client does not indicate any symptoms associated with coronavirus-19. Ebola Screen: Patient negative for fever greater than or equal to 101.5 degrees Fahrenheit, and additional compatible Ebola Virus Disease symptoms Patient denies exposure to infectious person. Patient denies travel to an Ebola-affected area in the 21 days before illness onset. No symptoms or risks identified at this time. Initial Sepsis Screen: Does the patient meet any 2 criteria? No. Patient's initial sepsis screen is negative. Does the patient have a suspected source of infection? No. Patient's initial sepsis screen is negative. Risk Assessment: Do you want to hurt yourself or someone else? Patient reports no desire to harm self or others. Onset of symptoms is unknown. 11:15 Method Of Arrival: Wheelchair ab2 11:15 Acuity: JES 3 ab2 Triage Assessment: 11:21 General: Appears in no apparent distress. comfortable, Behavior is calm, cooperative, ab2 appropriate for age. Pain: Denies pain. Historical: - Allergies: 11:19 No Known Allergies; ab2 - Home Meds: 11:19 Hydralazine Oral [Active]; Clonidine Oral [Active]; ab2 - PMHx: 11:19 Hypertension; Cirrhosis of liver; ab2 - PSHx: 11:19 None; ab2 - Immunization history:: Adult Immunizations up to date, Client reports receiving the 2nd dose of the Covid vaccine, Pneumococcal vaccine is up to date, Flu vaccine is not up to date. - Social history:: Smoking status: Patient denies any tobacco usage or history of. Screenin:57 Abuse screen: Denies threats or abuse. Nutritional screening: No deficits noted. ag7 Tuberculosis screening: No symptoms or risk factors identified. Fall Risk Secondary diagnosis (15 points) impaired mobility, IV access (20 points). Gait- Weak (10 pts.). Mental Status- Oriented to own ability (0 pts). Assessment: 12:48 General: Appears in no apparent distress. Behavior is cooperative, agitated. Pain: ag7 Denies pain. 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 Cardiovascular: Heart tones present irregular, murmur auscultated tricuspid. Capillary refill < 3 seconds is brisk Patient's skin is warm and dry. Pulses are all present. Edema is 2+ to left midcalf, left ankle, right midcalf and right ankle pitting to left midcalf, left ankle, right midcalf and right ankle Rhythm is atrial fibrillation Chest pain is denied. Respiratory: Airway is patent Respiratory effort is even, unlabored, Respiratory pattern is regular, symmetrical, Breath sounds are diminished bilaterally. GI: No deficits noted. : No deficits noted. EENT: Reports hard of hearing. Derm: Skin is intact, is fragile, is thin, Skin is dry, Skin is dusky, Skin temperature is warm. Musculoskeletal: Range of motion: limited in all extremities. 13:48 Reassessment: No changes from previously documented assessment. ag7 14:48 Reassessment: No changes from previously documented assessment. ag7 15:18 Reassessment: No changes from previously documented assessment. KIARA Hernandez informed ag7 regarding patient elevated b/p. no new orders received. 16:37 Reassessment: SON AT PATIENT BEDSIDE AND GAVE THE PATIENT HOME CLONIDINE O.1 MG BY ag7 MOUTH. THE FAMILY MEMBER WAS EDUCATED ABOUT THE PATIENT CONDITION AND INFORMED REGARDING THE IMPORTANCE OF ALLOWING THE MD TO TREAT THE PATIENT. MD MADE AWARE BY BEAU SNOWDEN. 17:37 Reassessment: No changes from previously documented assessment. Patient and/or family ag7 updated on plan of care and expected duration. Pain level reassessed. Patient is alert, oriented x 3, equal unlabored respirations, skin warm/dry/pink. Patient denies pain at this time. 18:24 Reassessment: Patient and/or family updated on plan of care and expected duration. Pain ag7 level reassessed. Patient is alert, oriented x 3, equal unlabored respirations, skin warm/dry/pink. Daughter in law is at the bedside, patient tolerate supper well PO100% intake Patient states feeling better. 19:57 General: Appears in no apparent distress. comfortable, Behavior is calm, cooperative, al4 DIL at bedside and reports that patient has been having SOB and leg swelling x 1 week, but felt like it was not getting better so he was brought to the hospital. Patient is currently not in any distress, and complains of being uncomfortable in the stretcher but denies pain. . Pain: Denies pain. Neuro: Level of Consciousness is awake, alert, obeys commands, Oriented to person, place, situation. Cardiovascular: Capillary refill < 3 seconds Patient's skin is warm and dry. Edema is 2+ to left midcalf, left ankle, right midcalf and right ankle pitting to left midcalf, left ankle, right midcalf and right ankle. Respiratory: Airway is patent Respiratory effort is even, unlabored, Respiratory pattern is regular. Derm: Skin is intact, Skin is dry, Skin temperature is warm. 20:09 Reassessment: Patient is being transferred upstairs by ISI Vargas. al4 Vital Signs: 11:15 BP 161 / 94; Pulse 66; Resp 20; Temp 97.9(TE); Pulse Ox 98% on R/A; Weight 78.93 kg; ab2 Height 5 ft. 7 in. (170.18 cm); Pain 0/10; 13:04 BP 189 / 98; Pulse 61; Resp 18; Pulse Ox 97% on R/A; ll1 13:44 BP 179 / 85; Pulse 76; Resp 24; Pulse Ox 93% on R/A; Pain 0/10; ag7 14:21 BP 183 / 100; Pulse 71; Resp 16; Pulse Ox 96% on R/A; mcpherson 15:00 BP 191 / 102; Pulse 72; Resp 20; Pulse Ox 96% ; Pain 0/10; ag7 15:30 BP 184 / 98; Pulse 70; Resp 21 S; Pulse Ox 96% ; Pain 0/10; ag7 16:31 BP 213 / 103; Pulse 78; Pulse Ox 94% on R/A; Pain 0/10; ag7 17:07 BP 190 / 117; Pulse 87; Resp 15; Pulse Ox 95% ; Pain 0/10; ag7 18:00 BP 189 / 84 LA Supine (auto/reg); Pulse 81 MON; Resp 21 S; Pulse Ox 95% on R/A; Pain ag7 0/10; 19:30 BP 162 / 92; Pulse 80; Resp 20 S; Pulse Ox 98% on R/A; Pain 0/10; al4 11:15 Body Mass Index 27.25 (78.93 kg, 170.18 cm) ab2 18:00 A fib ag7 ED Course: 11:08 Patient arrived in ED. ds1 11:19 Triage completed. ab2 11:21 Arm band placed on right wrist. ab2 11:46 Kathy Lynch MD is Attending Physician. sp3 11:47 Patient placed in an exam room, on a stretcher. ss 12:14 Jacqueline Oropeza, ISI is Primary Nurse. ag7 12:25 Inserted saline lock: 22 gauge in right antecubital area, using aseptic technique. ll1 Blood collected. 12:29 EKG done, by ED staff, reviewed by Kathy Lynch MD. mb7 12:58 Patient has correct armband on for positive identification. Allergy band placed. Bed in ag7 low position. Side rails up X 1. 13:37 Basic Metabolic Panel Sent. mcpherson 13:37 CBC with Diff Sent. mcpherson 13:37 LFT's Sent. mcpherson 14:06 XRAY Chest (1 view) In Process Unspecified. EDMS 15:38 Andre Ca MD is Hospitalizing Provider. sp3 16:25 COVID-19 SARS RT PCR (Document "Date of Onset" if Symptomatic) Sent. ag7 19:51 No provider procedures requiring assistance completed. Patient admitted, IV remains in al4 place. Administered Medications: 16:04 Drug: Lasix (furosemide) 40 mg Route: IVP; Infused Over: 2 mins; Site: right ag7 antecubital; 16:44 Follow up: Response: No adverse reaction; Blood pressure is elevated ag7 Intake: 18:21 PO: 120ml (Tea); Total: 120ml. ag7 Output: 16:05 Urine: 1000ml (Voided); Total: 1000ml. ag7 18:21 Urine: 550ml; Total: 1550ml. ag7 Outcome: 15:39 Decision to Hospitalize by Provider. sp3 19:51 Admitted to Med/surg room 216, Report called to ISI Antonio al4 19:51 Condition: stable 19:51 Instructed on the need for admit, Demonstrated understanding of 20:14 Patient left the ED. al4 Signatures: Dispatcher [employer] EDNY Caron Moore ds1 Jenny Hidalgo RN RN ss Lewis, Lynsay, RN RN ll1 Kathy Lynch MD MD sp3 Zaira Florentino mb7 Refugio Rodgers al4 ChanoStageDomenica tian RN RN ha Bleininger, Alexis ab2 Glenn, Angela, RN RN ag7 Corrections: (The following items were deleted from the chart) 12:55 12:48 Cardiovascular: Heart tones present irregular, murmur auscultated tricuspid. ag7 Capillary refill < 3 seconds is brisk Patient's skin is warm and dry. Rhythm is atrial fibrillation Chest pain is denied ag7 16:48 16:37 Reassessment: FAMILY AT PATIENT BEDSIDE AND GAVE THE PATIENT HOME CLONIDINE O.1 ag7 MG BY MOUTH. THE FAMILY MEMBER WAS EDUCATED ABOUT THE PATIENT CONDITION AND INFORMED REGARDING THE IMPORTANCE OF ALLOWING THE MDTO TREAT THE PATIENT. ag7
--- NOTE | 2021-07-29 15:40 | EDPHYS ---
Physician Documentation [facility] Name: John Cox Age: 86 yrs Sex: Male : 1935 Arrival Date: 07/29/2021 Time: 11:08 Bed 2 Private MD: ED Physician Kathy Lynch HPI: 07/29 12:20 This 86 yrs old Male presents to ER via Wheelchair with complaints of Leg Swelling. sp3 12:20 86-year-old male with history of hypertension, liver cirrhosis, single kidney likely at sp3 , presents referred to the ED by his home health nurse for peripheral edema. Per son, patient has 17 % renal function and is in the indeterminate zone for possible dialysis initiation. Dr. Farley is his claim inspector whom home health nurse notified and also referred to the ED. Patient also has mild shortness of breath but denies headache, chest pain, neck pain, back pain, abdominal pain, nausea, vomiting, diarrhea, syncope, neuro symptoms, rash, fever, or any other symptoms at this time as a part of ROS. Patient does make urine still and is on Lasix at home.. Historical: - Allergies: 11:19 No Known Allergies; ab2 - Home Meds: 11:19 Hydralazine Oral [Active]; Clonidine Oral [Active]; ab2 - PMHx: 11:19 Hypertension; Cirrhosis of liver; ab2 - PSHx: 11:19 None; ab2 - Immunization history:: Adult Immunizations up to date, Client reports receiving the 2nd dose of the Covid vaccine, Pneumococcal vaccine is up to date, Flu vaccine is not up to date. - Social history:: Smoking status: Patient denies any tobacco usage or history of. ROS: 12:23 Constitutional: Negative for fever, chills, and weight loss, Eyes: Negative for injury, sp3 pain, redness, and discharge, ENT: Negative for injury, pain, and discharge, Neck: Negative for injury, pain, and swelling, Abdomen/GI: Negative for abdominal pain, nausea, vomiting, diarrhea, and constipation, Back: Negative for injury and pain, MS/Extremity: Negative for injury and deformity, Skin: Negative for injury, rash, and discoloration, Neuro: Negative for headache, weakness, numbness, tingling, and seizure, Psych: Negative for depression, anxiety, suicide ideation, homicidal ideation, and hallucinations, Allergy/Immunology: Negative for hives, rash, and allergies, Endocrine: Negative for neck swelling, polydipsia, polyuria, polyphagia, and marked weight changes. 12:23 All other systems are negative. Exam: 12:23 Constitutional: This is a well developed, well nourished patient who is awake, alert, sp3 and in no acute distress. Head/Face: Normocephalic, atraumatic. Eyes: Pupils equal round and reactive to light, extra-ocular motions intact. Lids and lashes normal. Conjunctiva and sclera are non-icteric and not injected. Cornea within normal limits. Periorbital areas with no swelling, redness, or edema. ENT: Nares patent. No nasal discharge, no septal abnormalities noted. External auditory canals are clear. Oropharynx with no redness, swelling, or masses, exudates, or evidence of obstruction, uvula midline. Mucous membranes moist. Neck: Trachea midline, no thyromegaly or masses palpated, and no cervical lymphadenopathy. Supple, full range of motion without nuchal rigidity, or vertebral point tenderness. No Meningismus. Chest/axilla: Normal chest wall appearance and motion. Nontender with no deformity. No lesions are appreciated. Cardiovascular: Regular rate and rhythm with a normal S1 and S2. No gallops, murmurs, or rubs. Normal PMI, no JVD. No pulse deficits. Abdomen/GI: Soft, non-tender, with normal bowel sounds. No distension or tympany. No guarding or rebound. No evidence of tenderness throughout. Back: No spinal tenderness. No costovertebral tenderness. Full range of motion. Skin: Warm, dry with normal turgor. Normal color with no rashes, no lesions, and no evidence of cellulitis. Neuro: Awake and alert, GCS 15, oriented to person, place, time, and situation. Cranial nerves II-XII grossly intact. Motor strength 5/5 in all extremities. Sensory grossly intact. Cerebellar exam normal. Normal gait. 12:23 Respiratory: Mild rales noted bilaterally. No respiratory distress.. 12:23 Musculoskeletal/extremity: 2+ pitting edema bilaterally noted.. 12:33 ECG was reviewed by the Attending Physician. EKG demonstrates atrial fibrillation at 72 sp3 bpm with right bundle branch block and nonspecific diffuse ST/T changes without evidence of acute ischemia. Vital Signs: 11:15 BP 161 / 94; Pulse 66; Resp 20; Temp 97.9(TE); Pulse Ox 98% on R/A; Weight 78.93 kg; ab2 Height 5 ft. 7 in. (170.18 cm); Pain 0/10; 13:04 BP 189 / 98; Pulse 61; Resp 18; Pulse Ox 97% on R/A; ll1 13:44 BP 179 / 85; Pulse 76; Resp 24; Pulse Ox 93% on R/A; Pain 0/10; ag7 14:21 BP 183 / 100; Pulse 71; Resp 16; Pulse Ox 96% on R/A; mcpherson 15:00 BP 191 / 102; Pulse 72; Resp 20; Pulse Ox 96% ; Pain 0/10; ag7 15:30 BP 184 / 98; Pulse 70; Resp 21 S; Pulse Ox 96% ; Pain 0/10; ag7 16:31 BP 213 / 103; Pulse 78; Pulse Ox 94% on R/A; Pain 0/10; ag7 17:07 BP 190 / 117; Pulse 87; Resp 15; Pulse Ox 95% ; Pain 0/10; ag7 18:00 BP 189 / 84 LA Supine (auto/reg); Pulse 81 MON; Resp 21 S; Pulse Ox 95% on R/A; Pain ag7 0/10; 19:30 BP 162 / 92; Pulse 80; Resp 20 S; Pulse Ox 98% on R/A; Pain 0/10; al4 11:15 Body Mass Index 27.25 (78.93 kg, 170.18 cm) ab2 18:00 A fib ag7 MDM: 12:04 Patient medically screened. sp3 12:24 Data reviewed: vital signs, nurses notes. ED course: 86-year-old male presents with sp3 peripheral edema and likely CHF. Deteriorating renal function is likely the main etiology for the symptoms. Patient is in no acute distress and I do not believe he is having acute coronary syndrome, CVA, sepsis, shock, or any other critical findings at this time. Disposition likely admission for further work-up and/or probable intervention. Final disposition will be made after data points are back.. 15:37 ED course: Laboratory values finally back after laboratory instruments are back up. sp3 Chest x-ray and BNP levels demonstrate fluid overload. Will administer Lasix IV and admit patient for cardiology and nephrology consultation for possible dialysis initiation.. 07/29 12:03 Order name: Basic Metabolic Panel 3 07/29 12:03 Order name: CBC with Diff sp3 07/29 12:03 Order name: LFT's sp3 07/29 12:03 Order name: Magnesium; Complete Time: 15:34 sp3 07/29 12:03 Order name: NT PRO-BNP; Complete Time: 15:34 sp3 07/29 12:03 Order name: PT-INR; Complete Time: 13:37 sp3 07/29 12:03 Order name: Troponin HS; Complete Time: 15:34 sp3 07/29 12:04 Order name: Basic Metabolic Panel; Complete Time: 15:34 EDMS 07/29 12:04 Order name: CBC with Automated Diff; Complete Time: 13:37 EDMS 07/29 12:04 Order name: Liver (Hepatic) Function; Complete Time: 15:34 EDMS 07/29 16:15 Order name: COVID-19 SARS RT PCR (Document "Date of Onset" if Symptomatic) 07/29 16:51 Order name: CBC with Automated Diff EDMS 07/29 16:51 Order name: CBC with Automated Diff EDMS 07/29 16:51 Order name: Comprehensive Metabolic Panel EDMS 07/29 12:03 Order name: XRAY Chest (1 view); Complete Time: 15:00 3 07/29 12:03 Order name: EKG; Complete Time: 12:04 3 07/29 12:03 Order name: Cardiac monitoring; Complete Time: 12:29 3 07/29 12:03 Order name: EKG - Nurse/Tech; Complete Time: 12:29 sp3 07/29 16:51 Order name: CONS Physician Consult EDMS 07/29 16:51 Order name: CONS Physician Consult EDMS 07/29 16:51 Order name: Heart Healthy EDMS 07/29 16:51 Order name: Echo with Doppler EDMS 07/29 16:51 Order name: Comprehensive Metabolic Panel EDMS 07/29 16:51 Order name: Magnesium EDMS 07/29 16:51 Order name: Magnesium EDMS 07/29 16:51 Order name: NT PRO-BNP EDMS 07/29 16:51 Order name: NT PRO-BNP EDMS 07/29 16:51 Order name: Phosphorus EDMS 07/29 16:51 Order name: Phosphorus EDMS 07/29 12:03 Order name: IV Saline Lock; Complete Time: 12:58 sp3 07/29 12:03 Order name: Labs collected and sent; Complete Time: 12:58 sp3 07/29 12:03 Order name: O2 Per Protocol; Complete Time: 12:58 sp3 07/29 12:03 Order name: O2 Sat Monitoring; Complete Time: 12:58 sp3 Administered Medications: 16:04 Drug: Lasix (furosemide) 40 mg Route: IVP; Infused Over: 2 mins; Site: right ag7 antecubital; 16:44 Follow up: Response: No adverse reaction; Blood pressure is elevated ag7 Disposition Summary: 07/29/21 15:39 Hospitalization Ordered Hospitalization Status: Observation sp3 Provider: Andre Ca3 Location: Telemetry/MedSurg (observation) sp3 Condition: Stable sp3 Problem: an acute exacerbation sp3 Symptoms: have worsened sp3 Bed/Room Type: Standard sp3 Room Assignment: 216(07/29/21 19:30) cg Diagnosis - Congestive heart failure, acute on chronic renal failure, peripheral edema sp3 Forms: - Medication Reconciliation Form sp3 - SBAR form sp3 Signatures: Dispatcher [employer] Jenny Alves RN RN ss Garcia, Cindy, RN RN Kathy Keenan MD MD sp3 Refugio Joseph Angela, RN RN ag7 Corrections: (The following items were deleted from the chart) 19:30 15:39 sp3 cg
[2021-07-29] MEDS ORDERED: FUROSEMIDE 40 MG/4 ML VIAL ONE (15:47)
[2021-07-29] MEDS ORDERED: ACETAMINOPHEN 500 MG TAB PO PRN (16:46)
[2021-07-29] MEDS ORDERED: ONDANSETRON 4 MG/2 ML VIAL IV PRN (16:46)
[2021-07-29] MEDS: FUROSEMIDE 40 MG/4 ML VIAL IV SCH (17:00)
[2021-07-29] MEDS: ENOXAPARIN 30 MG/0.3 ML SQ SCH (18:00)
[2021-07-29] MEDS: METOPROLOL TAR 50 MG TAB PO SCH (20:54)
[2021-07-29] MEDS: POTASSIUM 25 MEQ EFFERV TAB PO SCH (21:00)
[2021-07-29 21:47] VITALS: BMI 27.3
[2021-07-30] MEDS: FUROSEMIDE 40 MG/4 ML VIAL IV SCH ×2 (01:00→07:51)
[2021-07-30 04:16] LABS: Absolute Lymphocytes (CBC) 0.6 K/uL (0.7-4.9); Hematocrit 33.4 % (39.6-49.0); Lymphocytes % 10.7 % (15.3-44.8); MPV 8.6 fL (7.6-11.3)
[2021-07-30 04:36] LABS: Albumin 3.2 g/dL (3.4-5.0); Magnesium 2.3 mg/dL (1.8-2.4); Phosphorus 4.5 mg/dL (2.5-4.9); Potassium 4.3 mmol/L (3.5-5.1); Protein, Total 7.1 g/dL (6.4-8.2)
[2021-07-30] MEDS: ENOXAPARIN 30 MG/0.3 ML SQ SCH (07:50)
[2021-07-30] MEDS: METOPROLOL TAR 50 MG TAB PO SCH ×2 (07:52→20:44)
[2021-07-30] MEDS: POTASSIUM 25 MEQ EFFERV TAB PO SCH ×2 (07:52→20:11)
[2021-07-30] MEDS ORDERED: ENOXAPARIN 40 MG/0.4 ML SQ SCH (09:00)
--- NOTE | 2021-07-30 09:54 | P.HP ---
Certification for Inpatient Patient admitted to: Inpatient With expected LOS: >2 Midnights Patient will require the following post-hospital care: None Practitioner: I am a practitioner with admitting privileges, knowledge of patient current condition, hospital course, and medical plan of care. Services: Services provided to patient in accordance with Admission requirements found in Title 42 Section 412.3 of the Code of Federal Regulations Patient History Date of Service: 07/29/21 Reason for admission: DEWEY/CHF History of Present Illness: Patient is an 86-year-old gentleman who comes into the hospital with difficulty breathing. Patient was diagnosed with congestive heart failure and acute on chronic kidney failure. Patient follows up with Dr. Zhao As an outpatient. Patient also follows up with [facility] in [place]. Decision was made to admit the patient to the hospital after chest x-ray revealed worsening right- sided pleural effusion. Patient will be admitted to the hospital. Patient had a decubitus chest x-ray which revealed free flowing fluid. Patient will need to be reevaluated and we may need to do a thoracentesis. Patient will be admitted to the hospital for further work-up. Allergies No Known Allergies Allergy (Verified 07/29/21 19:35) Home Medications: Apixaban [Eliquis] 2.5 mg PO BID #60 08/15/20 Hydralazine HCl 50 mg PO TID #90 tablet 08/15/20 Na Bicarb Tab [Sodium Bicarb 325 MG Tab*] 650 mg PO BID #120 tab 08/15/20 cloNIDine HCL [Catapres*] 0.2 mg PO TID #180 tab 08/15/20 - Past Medical/Surgical History Has patient received pneumonia vaccine in the past: Yes Diabetic: No -: HTN -: Carotid artery stenosis s/p CEA -: CKDIII -: chf -: cataract surgery - Family History Father Medical History: Heart disease, Hypertension Brother Medical History: Cancer - Social History Smoking Status: Former smoker Alcohol use: Yes CD- Drugs: No Place of Residence: Home Review of Systems 10-point ROS is otherwise unremarkable Physical Examination - Vital Signs Temperature: 97.9 F Blood Pressure: 172/95 Pulse: 85 Respirations: 18 Pulse Ox (%): 96 - Physical Exam General: Alert, In no apparent distress, Oriented x3, Demented HEENT: Atraumatic, PERRLA, Mucous membr. moist/pink, EOMI, Sclerae nonicteric Neck: Supple, 2+ carotid pulse no bruit, No LAD, Without JVD or thyroid abnormality Respiratory: Diminished (Right-sided breath sounds) Cardiovascular: Regular rate/rhythm, Normal S1 S2, Systolic murmur Gastrointestinal: Normal bowel sounds, Soft and benign, Non-distended, No tenderness Musculoskeletal: No clubbing, No tenderness, Swelling Integumentary: No rashes Neurological: Normal gait, Normal speech, Normal strength at 5/5 x4 extr, Normal tone, Sensation intact, Cranial nerves 3-12 intact, Normal affect Lymphatics: No axilla or inguinal lymphadenopathy - Studies Laboratory Data (last 24 hrs) 07/29/21 12:10: PT 17.2 H, INR 1.49 07/29/21 12:10: WBC 5.30, Hgb 11.6 L, Hct 34.0 L, Plt Count 160 07/29/21 12:10: Sodium 131 L, Potassium 4.0, BUN 46 H, Creatinine 3.46 H, Glucose 112 H, Magnesium 2.3, Total Bilirubin 1.0, AST 32, ALT 29, Alkaline Phosphatase 110 Assessment & Plan - Problems (Diagnosis) (1) Dyspnea Current Visit: Yes Status: Acute (2) Acute CHF (congestive heart failure) Current Visit: Yes Status: Acute (3) Acute on chronic renal failure Current Visit: Yes Status: Acute Qualifiers: Chronic kidney disease stage: stage 3 (moderate) (4) HTN (hypertension) Current Visit: No Status: Acute Qualifiers: Hypertension type: primary hypertension Qualified Code(s): I10 - Essential (primary) hypertension (5) Pleural effusion, right Current Visit: No Status: Acute - Plan PLAN: 1. Echocardiogram 2. Arrange for thoracentesis 3. Nephrology consultation 4. Cardiology consultation 5. Aggressive diuresis 6. Strict I's and O's 7. Repeat CXR 8. Daily weights 9. Education regarding diet and treatment of congestive heart failure Discharge Plan: Home Plan to discharge in: Greater than 2 days - Advance Directives Does patient have a Living Will: No Does patient have a Durable POA for Healthcare: Yes - Code Status/Comfort Care Code Status Assessed: Yes Code Status: Full Code Critical Care: No Time Spent Managing PTS Care (In Minutes): 45
--- NOTE | 2021-07-30 10:12 | P.PN ---
Subjective Date of Service: 07/30/21 Subjective: No new changes, No C/O voiced, Improving Review of Systems 10-point ROS is otherwise unremarkable Physical Examination - Vital Signs Temperature: 97.9 F Blood Pressure: 172/95 Pulse: 85 Respirations: 18 Pulse Ox (%): 96 - Physical Exam General: Alert, In no apparent distress, Oriented x3 HEENT: Atraumatic, PERRLA, EOMI Neck: Supple, JVD not distended Respiratory: Clear to auscultation bilaterally, Normal air movement Cardiovascular: Regular rate/rhythm, Normal S1 S2 Gastrointestinal: Normal bowel sounds, No tenderness Musculoskeletal: No tenderness Integumentary: No rashes Neurological: Normal speech, Normal tone, Normal affect Lymphatics: No axilla or inguinal lymphadenopathy - Studies Laboratory Data (last 24 hrs) 07/29/21 12:10: PT 17.2 H, INR 1.49 07/29/21 12:10: WBC 5.30, Hgb 11.6 L, Hct 34.0 L, Plt Count 160 07/29/21 12:10: Sodium 131 L, Potassium 4.0, BUN 46 H, Creatinine 3.46 H, Glucose 112 H, Magnesium 2.3, Total Bilirubin 1.0, AST 32, ALT 29, Alkaline Phosphatase 110 Medications List Reviewed: Yes Assessment & Plan - Problems (Diagnosis) (1) Dyspnea Current Visit: Yes Status: Acute (2) Acute CHF (congestive heart failure) Current Visit: Yes Status: Acute (3) Acute on chronic renal failure Current Visit: Yes Status: Acute Qualifiers: Chronic kidney disease stage: stage 3 (moderate) (4) HTN (hypertension) Current Visit: No Status: Acute Qualifiers: Hypertension type: primary hypertension Qualified Code(s): I10 - Essential (primary) hypertension (5) Pleural effusion, right Current Visit: No Status: Acute - Plan PLAN: Continue with plan of care as mentioned below: 1. Echocardiogram 2. Arrange for thoracentesis 3. Nephrology consultation 4. Cardiology consultation 5. Aggressive diuresis 6. Strict I's and O's 7. Repeat CXR 8. Daily weights 9. Education regarding diet and treatment of congestive heart failure Discharge Plan: Home Plan to discharge in: Greater than 2 days - Advance Directives Does patient have a Living Will: No Does patient have a Durable POA for Healthcare: Yes - Code Status/Comfort Care Code Status: Full Code Critical Care: No Time Spent Managing PTS Care (In Minutes): 45
--- NOTE | 2021-07-30 12:52 | EKG ---
Test Date: 2021-07-29 Test Time: 12:29:15 Skate Boarder: MBB MEASUREMENT RESULTS: Intervals: Rate: 72 [place]: QRSD: 146 QT: 478 QTc: 523 [place]: P: [place]: QRS: 78 T: 158 INTERPRETIVE STATEMENTS: Atrial fibrillation with a competing junctional pacemaker Right bundle branch block Septal infarct, age undetermined T wave abnormality, consider inferior ischemia or digitalis effect Abnormal ECG Compared to ECG 06/28/2021 22:31:11 No significant changes Electronically Signed On 07-30-21 12:49:43 KICK PRESS OPERATOR by Rory Bui
--- NOTE | 2021-07-30 13:53 | ECHO ---
HEIGHT: 5 ft 7 in WEIGHT: 174 lb 3.2 oz DATE OF STUDY: 07/30/[address]: Andre Ca MD 2-DIMENSIONAL: YES M.MODE: YES DOPPLER: YES COLOR FLOW: YES TDS: NO PORTABLE: NO DEFINITY: NO BUBBLE STUDY: NO DIAGNOSIS: CONGESTIVE HEART FAILURE CARDIAC HISTORY: CATHERIZATION: NO SURGERY: NO PROSTHETIC VALVE: NO PACEMAKER: NO MEASUREMENTS (cm) DIASTOLIC (NORMALS) SYSTOLIC (NORMALS) IVSd 1.1 (0.6-1.2) LA Diam 3.8 (1.9-4.0) LVEF 40-45% LVIDd 4.1 (3.5-5.7) LVIDs 3.0 (2.0-3.5) %FS % LVPWd 1.2 (0.6-1.2) Ao Diam 2.9 (2.0-3.7) 2 DIMENSIONAL ASSESSMENT: RIGHT ATRIUM: NORMAL LEFT ATRIUM: NORMAL RIGHT VENTRICLE: NORMAL LEFT VENTRICLE: NORMAL SIZE TRICUSPID VALVE: NORMAL MITRAL VALVE: NORMAL PULMONIC VALVE: NORMAL AORTIC VALVE: NORMAL PERICARDIAL EFFUSION: NONE AORTIC ROOT: NORMAL LEFT VENTRICULAR WALL MOTION: MILD GLOBAL HYPOKINESIS. DOPPLER/COLOR FLOW: MILD MITRAL AND TRICUSPID REGURGITATION. COMMENTS: MILD MITRAL AND TRICUSPID REGURGITATION. MILD GLOBAL HYPOKINESIS. EJECTION FRACTION 40-45%. TECHNOLOGIST: NATO LOTT
[2021-07-30] MEDS: HYDRALAZINE HCL 25 MG TABLET PO SCH ×2 (14:01→20:12)
[2021-07-30] MEDS: cloNIDine HCL 0.1 MG TAB PO SCH ×2 (14:02→20:11)
--- NOTE | 2021-07-30 15:50 | P.CNS ---
Date of Consult: 07/30/21 Reason for Consult: renal failure Requesting Physician: Andre Ca Chief Complaint: DEWEY/CHF History of Present Illness: 86M w/ PMHx of CKD3-4, Htn, CHF, chronic BLE edema, & secondary hyperPTH, p/w worsening SOB & BLE edema. CXR done showed worsening R pleural effusion. Admittted for further eval & mngt. Allergies No Known Allergies Allergy (Verified 07/29/21 19:35) Home Medications: Apixaban [Eliquis] 2.5 mg PO BID #60 08/15/20 Hydralazine HCl 50 mg PO TID #90 tablet 08/15/20 Na Bicarb Tab [Sodium Bicarb 325 MG Tab*] 650 mg PO BID #120 tab 08/15/20 cloNIDine HCL [Catapres*] 0.2 mg PO TID #180 tab 08/15/20 - Past Medical/Surgical History Diabetic: No Past Medical History: Unable to obtain -: HTN -: Carotid artery stenosis s/p CEA -: CKDIII -: chf -: cataract surgery - Family History Father Medical History: Heart disease, Hypertension Brother Medical History: Cancer - Social History Smoking Status: Former smoker Alcohol use: Yes CD- Drugs: No Caffeine use: Yes Place of Residence: Home Review of Systems General: Weakness Eyes: Unremarkable ENT: Unremarkable Respiratory: Shortness of Breath, SOB with Excertion Cardiovascular: Unremarkable Gastrointestinal: Unremarkable Genitourinary: Unremarkable Musculoskeletal: Other (BLE edema) Integumentary: Unremarkable Neurological: Unremarkable Lymphatics: Unremarkable Physical Examination Temp Pulse Resp BP Pulse Ox 97.5 F 55 20 167/82 H 92 07/30/21 12:00 07/30/21 14:02 07/30/21 12:00 07/30/21 14:02 07/30/21 12:00 General: Other (appears chronically ill) HEENT: Atraumatic, Normocephalic Neck: Supple, JVD not distended Respiratory: Other (symmetric chest expansion) Cardiovascular: No rubs, No murmurs Gastrointestinal: Soft and benign, No guarding Musculoskeletal: No clubbing, Swelling Integumentary: Other (normal temperature) Neurological: Normal speech, Normal tone Lymphatics: No axilla or inguinal lymphadenopathy Urinary: Other (no bladder distention) External genitalia: Deferred Rectal: Deferred Conclusions/Impression: # DEWEY 2/2 accelerated Htn +/- prerenal/ATN & diuretic use Serum creatinine 3.5 on admission, increased to 3.8 today Urinalysis showed 2+ proteinuria but no hematuria or pyuria F/u CPK, urine chem, random UPCR BNP sig elevated Resume furosemide IV [place] po fluid intake at least 2L/d unless he develop hypoNa < 130 meq/L Monitor renal panel # 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 Prieto Baseline SCr 1.7-1.9 (equivalent GFR of 33-38 mL/min) as of July 2020 CT imaging showed dense right renal artery calcifications, atrophic left kidney Renal Doppler ultrasound done on 06/28/21 showed no renal artery stenosis # Serum protein gap No urine protein gap. Hold off on paraprotein disease workup # Htn BP above goal Renal Doppler ultrasound showed no renal artery stenosis as above Prior workup for pheochromocytoma was negative with normal urine metanephrines BP meds adjusted Added IV furosemide # BLE edema, large R pleural effusion +nodular liver IV lasix R thoracentesis pending; send pleural fluid for analysis including fluid cytology to r/o malignancy # Hyponatremia 2/2 high ADH state Do NOT restrict po fluid intake unless serum Na drops < 130, to avoid/minimize DEWEY # Anemia Monitor H/H No indication for MICHAEL # Hyperuricemia Serum uric acid elevated at 10.2 Allopurinol 100 mg by mouth q weekly # Secondary hyperparathyroidism PTH elevated at 161 25-hydroxy vitamin D level wnl Hold off on calcitriol # ? Depression +Anxiety disorder Per primary team
[2021-07-30] MEDS: FUROSEMIDE 20 MG/ 2ML VIAL IV SCH (16:08)
[2021-07-30] MEDS: SODIUM BICARB 325 MG TAB PO SCH (20:12)
[2021-07-30 20:52] LABS: Urine Appearance CLEAR (Clear); Urine Bilirubin NEGATIVE (Negative); Urine Blood NEGATIVE (Negative); Urine Color YELLOW (Yellow); Urine Glucose NEGATIVE (Negative); Urine Protein 2+ (Negative); Urine Urobilinogen 0.2 mg/dL (0.2-1.0)
[2021-07-30 20:58] LABS: Urine Bacteria <20 /HPF (NONE SEEN); Urine RBC <5 /HPF (NONE SEEN); Urine Urothelial Cells <5 /HPF (NONE SEEN)
[2021-07-30] MEDS ORDERED: APIXABAN 5 MG TABLET PO SCH (21:00)
[2021-07-30] MEDS ORDERED: APIXABAN 2.5 MG TABLET PO SCH (21:00)
[2021-07-31] MEDS: FUROSEMIDE 20 MG/ 2ML VIAL IV SCH ×2 (00:35→08:46)
--- NOTE | 2021-07-31 07:19 | RAD REPORT ---
EXAM DESCRIPTION: US - Renal Ultrasound-Complete - 07/31/2021 1:04 am CLINICAL HISTORY: Acute renal failure COMPARISON: June 2021 cat scan FINDINGS: The right kidney measures 10 cm with an increased echotexture. The left kidney measures 3 cm with an increased echotexture. Hydronephrosis is not seen. No gross abnormality of bladder is seen IMPRESSION: Increased renal echotexture consistent with parenchymal disease Markedly atrophic left kidney Hydronephrosis is not visualized
[2021-07-31] MEDS: METOPROLOL TAR 50 MG TAB PO SCH ×2 (09:00→20:36)
[2021-07-31] MEDS: POTASSIUM 25 MEQ EFFERV TAB PO SCH ×3 (09:00→20:35)
[2021-07-31] MEDS: HYDRALAZINE HCL 25 MG TABLET PO SCH ×3 (09:29→20:35)
[2021-07-31] MEDS: SODIUM BICARB 325 MG TAB PO SCH (09:29)
[2021-07-31] MEDS: cloNIDine HCL 0.1 MG TAB PO SCH ×3 (09:30→20:35)
[2021-07-31 10:39] LABS: Absolute Lymphocytes (CBC) 0.7 K/uL (0.7-4.9); Hematocrit 31.8 % (39.6-49.0); Lymphocytes % 15.5 % (15.3-44.8); MPV 8.3 fL (7.6-11.3); RBC Red Blood Cell Count 3.39 M/uL (4.33-5.43)
--- NOTE | 2021-07-31 11:00 | CON ---
Date of Consultation: 07/30/2021 History Of Present Illness: Hypertension, congestive heart failure. History Of Present Illness: Mr. Cox is known to me from previous office visits and admissions. Marissa watt has a history of carotid endarterectomy, chronic renal disease. He only has 1 kidney on the right. He has a history of congestive heart failure, diastolic, chronic. He also has a history of cirrhos is and hypertension. He was admitted with edema, creatinine was 3.78, short of breath with a large p leural effusion. He denied any chest pain. Denied any palpitation or syncope. Denied any fever or chills. Past Medical History: As stated above. Allergies: NONE. Review of Systems: Negative. Social History: Negative. Family History: Negative. Medications: At home include Eliquis, hydralazine, and clonidine. Physical Examination: Vital Signs: Blood pressure was 172/87. He was in atrial fibrillation which was chronic at a rate o f 90. Afebrile. HEENT: Negative. Neck: Supple with no bruit. Chest: Revealed decreased breath sounds bilaterally, left greater than right. Cardiac: Revealed atrial fibrillation. Abdomen: Benign. Extremities: Revealed 1+ edema to the knee bilaterally. Laboratory Data: Chest x-ray showed pleural effusion. EKG showed atrial fibrillation. BNP was 10,5 14. Impression And Plan: 1.Hypertension. The patient is now on clonidine, metoprolol, and hydralazine. 2.Cirrhosis of the liver. 3.Chronic diastolic congestive heart failure. Echocardiogram is pending. Continue IV Lasix. 4.Renal failure, creatinine of 3.78. Nephrology has been consulted. 5.History of cerebrovascular accident. For now, I would get an echocardiogram, continue his present regimen, IV Lasix. Possible thoracentesis. Nephrology consultation. I will continue to follow. RAINE/SALMA Voice ID: [id number] Report ID: [id number]
--- NOTE | 2021-07-31 11:42 | PN ---
Date of Progress Note: 07/31/2021 Mr. Cox is 86. Has a history of hypertension, liver cirrhosis, chronic systolic congestive heart failure, ejection fraction 45%, chronic renal disease with acute exacerbation, carotid endarterectomy . Comes in with edema that has resolved. His creatinine is 3.78. Nephrology is following him. Oscar al ultrasound showed 1 kidney on the right, but no stenosis. Echocardiogram showed an ejection fract ion of 45%. There is a plan to do a thoracentesis on his pleural effusion. Otherwise, I agree with his present regimen which include Eliquis, clonidine, metoprolol, Lasix, and hydralazine. I will con tinue to follow him as needed. I will discuss the case further with Dr. Ca. RAINE/SALMA Voice ID: [id number] Report ID: [id number]
--- NOTE | 2021-07-31 14:04 | RAD REPORT ---
EXAM DESCRIPTION: RAD - Chest Single View - 07/31/2021 1:49 pm CLINICAL HISTORY: COPD COMPARISON: Portable 07/29/2021 TECHNIQUE: AP portable chest image was obtained 07/31/2021 1:49 pm in supine positioning. FINDINGS: Hazy opacification is seen throughout the right hemithorax due to layering of the previous ly detailed large right pleural effusion. Right lung base atelectasis present. Infiltrates and lung m asses can be masked in this setting. Trachea remains in the midline. No left-sided pleural fluid or lung parenchymal abnormality. No pneum othorax is seen. Heart and vasculature are normal. No acute bony abnormality seen. No acute aortic findings suspected . IMPRESSION: Right lung base atelectasis from pleural effusion. Infiltrates and masses of the lung pa renchyma in the base can be masked due to the atelectasis and pleural effusion. Hazy opacification over the entire right hemithorax due to layering of the pleural effusion on this s upine examination.
--- NOTE | 2021-07-31 14:27 | PN ---
Date of Progress Note: 07/31/2021 Subjective: The patient was admitted with acute kidney injury on solitary kidney. The patient is over volume. Physical Examination: Vital Signs: Blood pressure 141/62, pulse of 56. The patient had good urine output of 750. Chest: Crackles bilateral. Decreased entry on the right base. Heart: S1, S2. Systolic murmur. Abdomen: Soft, nontender. Extremity: Plus edema. Neurologic: Alert. No focality. Laboratory Data: H and H .8. Sodium 131, potassium 4, bicarb 24, BUN 58, creatinine 4, GFR of 14, calcium 8.7. Current Medications: The patient on include; 1. Eliquis. 2. Clonidine. 3. Hydralazine. 4. Metoprolol. 5. Lasix. 6. Sodium bicarb. Assessment And Plan: 1. Acute kidney injury secondary to cardiorenal. I am going to utilize blood pressure for more diuresis. We will increase Lasix to 40 mg every 8 hours. I am going to go ahead and get chest x-ray for better evaluation of the fluid status for the patient and we will follow up. 2. Hypertension. We will utilize blood pressure for more diuresis. 3. Congestive heart failure with cardiorenal as above. We will continue diuresis. 4. Acidosis secondary to renal failure. I am going to decrease the bicarb to once a day, plan to decrease the sodium load for the patient. Time spent examining the patient, [id number], discussing with the patient, reviewing data including radiology and laboratory, placing order, discussing the case with other crew team member including nursing and charge nurse, discussing the case with other subspecialists including hospitalist 35 minutes. CIRO Voice ID: [id number] Report ID: [id number] JENNIFER
[2021-07-31] MEDS: FUROSEMIDE 40 MG/4 ML VIAL IV SCH (16:28)
--- NOTE | 2021-07-31 18:06 | P.PN ---
Date of Service: 07/31/21 Subjective Subjective: Renal function continues to worsen. Plan for thoracentesis on Thursday. Hold DVT. Review of Systems 10-point ROS is otherwise unremarkable Physical Examination - Vital Signs Reviewed - Physical Exam General: Alert, In no apparent distress, Oriented x3 Respiratory: Clear to auscultation bilaterally, Normal air movement Cardiovascular: Regular rate/rhythm, Normal S1 S2 Gastrointestinal: Normal bowel sounds, No tenderness Neurological: Normal speech, Normal tone, Normal affect Assessment & Plan - Problems (Diagnosis) (1) Dyspnea Current Visit: Yes Status: Acute (2) Acute CHF (congestive heart failure) Current Visit: Yes Status: Acute (3) Acute on chronic renal failure Current Visit: Yes Status: Acute Qualifiers: Chronic kidney disease stage: stage 3 (moderate) (4) HTN (hypertension) Current Visit: No Status: Acute Qualifiers: Hypertension type: primary hypertension Qualified Code(s): I10 - Essential (primary) hypertension (5) Pleural effusion, right Current Visit: No Status: Acute - Plan Continue with plan of care as mentioned below: 1. Echocardiogram 2. Arrange for thoracentesis 3. Nephrology consultation 4. Cardiology consultation 5. Aggressive diuresis 6. Strict I's and O's 7. Repeat CXR 8. Daily weights 9. Education regarding diet and treatment of congestive heart failure
[2021-08-01] MEDS: FUROSEMIDE 40 MG/4 ML VIAL IV SCH ×2 (01:00→08:48)
[2021-08-01 01:53] LABS: UR PROTEIN 60.8 mg/dL (<11.9); Urine Protein/Creatinine Ratio 1.15 ratio (<0.15)
[2021-08-01 06:31] LABS: Absolute Lymphocytes (CBC) 0.7 K/uL (0.7-4.9); Hematocrit 30.3 % (39.6-49.0); MPV 8.7 fL (7.6-11.3); RBC Red Blood Cell Count 3.22 M/uL (4.33-5.43)
[2021-08-01 06:51] LABS: Albumin 3.5 g/dL (3.4-5.0); Bilirubin Total 0.7 mg/dL (0.2-1.0); Magnesium 2.4 mg/dL (1.8-2.4); Potassium 4.2 mmol/L (3.5-5.1); Protein, Total 7.3 g/dL (6.4-8.2)
[2021-08-01 08:16] VITALS: BP 166/85; TEMP 96.6
[2021-08-01] MEDS: HYDRALAZINE HCL 25 MG TABLET PO SCH (08:49)
[2021-08-01] MEDS: METOPROLOL TAR 50 MG TAB PO SCH (08:49)
[2021-08-01] MEDS: cloNIDine HCL 0.1 MG TAB PO SCH (08:49)
[2021-08-01] MEDS: POTASSIUM 25 MEQ EFFERV TAB PO SCH ×2 (08:50→09:00)
[2021-08-01] MEDS ORDERED: SODIUM BICARB 325 MG TAB PO SCH (09:00)
[2021-08-01 10:53] VITALS: O2SAT 98
--- NOTE | 2021-08-01 12:08 | P.PN ---
Date of Service: 08/01/21 Subjective Subjective: Doing better; renal function worsened; looking at going home once renal function stable Review of Systems 10-point ROS is otherwise unremarkable Physical Examination - Vital Signs Reviewed - Physical Exam General: Alert, In no apparent distress, Oriented x3 Respiratory: Clear to auscultation bilaterally, Normal air movement Cardiovascular: Regular rate/rhythm, Normal S1 S2 Gastrointestinal: Normal bowel sounds, No tenderness Neurological: Normal speech, Normal tone, Normal affect Assessment & Plan - Problems (Diagnosis) (1) Dyspnea Current Visit: Yes Status: Acute (2) Acute CHF (congestive heart failure) Current Visit: Yes Status: Acute (3) Acute on chronic renal failure Current Visit: Yes Status: Acute Qualifiers: Chronic kidney disease stage: stage 3 (moderate) (4) HTN (hypertension) Current Visit: No Status: Acute Qualifiers: Hypertension type: primary hypertension Qualified Code(s): I10 - Essential (primary) hypertension (5) Pleural effusion, right Current Visit: No Status: Acute - Plan Continue with plan of care as mentioned below: 1. Echocardiogram reviewed 2. Arrange for thoracentesis Thursday 3. Nephrology consultation appreciated 4. Cardiology consultation appreciated 5. Increased diuretics per Nephrology 6. Strict I's and O's 7. Repeat CXR 8. Daily weights 9. Education regarding diet and treatment of congestive heart failure
--- NOTE | 2021-08-01 12:09 | P.DS ---
Discharge Date: 08/01/21 Disposition: AMA-LEFT AGAINST MEDICAL ADVIC Discharge Condition: FAIR Reason for Admission: DEWEY/CHF - Problems (1) Dyspnea Status: Acute (2) Acute CHF (congestive heart failure) Status: Acute (3) Acute on chronic renal failure Status: Acute Qualifiers: Chronic kidney disease stage: stage 3 (moderate) (4) HTN (hypertension) Status: Acute Qualifiers: Hypertension type: primary hypertension Qualified Code(s): I10 - Essential (primary) hypertension (5) Pleural effusion, right Status: Acute Brief History of Present Illness: Patient is an 86-year-old gentleman who comes into the hospital with difficulty breathing. Patient was diagnosed with congestive heart failure and acute on chronic kidney failure. Patient follows up with Dr. Zhao As an outpatient. Patient also follows up with supervisor cloth winding in [place]. Decision was made to admit the patient to the hospital after chest x-ray revealed worsening right- sided pleural effusion. Patient will be admitted to the hospital. Patient had a decubitus chest x-ray which revealed free flowing fluid. Patient will need to be reevaluated and we may need to do a thoracentesis. Patient will be admitted to the hospital for further work-up. Hospital Course: Spoke with family put they decided to leave AMA Vital Signs/Physical Exam: Temp Pulse Resp BP Pulse Ox 96.6 F L 72 22 H 166/85 H 98 08/01/21 08:00 08/01/21 08:48 08/01/21 08:00 08/01/21 08:49 08/01/21 04:00 General: Alert, In no apparent distress, Oriented x3 Laboratory Data at Discharge: WBC 5.30 K/uL (4.3-10.9) 08/01/21 06:05 Hgb 10.4 g/dL (13.6-17.9) L 08/01/21 06:05 Hct 30.3 % (39.6-49.0) L 08/01/21 06:05 Plt Count 159 K/uL (152-406) 08/01/21 06:05 PT 17.2 SECONDS (9.5-12.5) H 07/29/21 12:10 INR 1.49 07/29/21 12:10 Sodium 127 mmol/L (136-145) L 08/01/21 06:05 Potassium 4.2 mmol/L (3.5-5.1) 08/01/21 06:05 BUN 66 mg/dL (7-18) H 08/01/21 06:05 Creatinine 4.10 mg/dL (0.55-1.3) H 08/01/21 06:05 Glucose 106 mg/dL (74-106) 08/01/21 06:05 Phosphorus 4.5 mg/dL (2.5-4.9) 07/30/21 03:34 Magnesium 2.4 mg/dL (1.8-2.4) 08/01/21 06:05 Total Bilirubin 0.7 mg/dL (0.2-1.0) 08/01/21 06:05 AST 36 U/L (15-37) 08/01/21 06:05 ALT 29 U/L (12-78) 08/01/21 06:05 Alkaline Phosphatase 112 U/L (45-117) 08/01/21 06:05 Home Medications: Apixaban [Eliquis] 2.5 mg PO BID #60 08/15/20 Hydralazine HCl 50 mg PO TID #90 tablet 08/15/20 Na Bicarb Tab [Sodium Bicarb 325 MG Tab*] 650 mg PO BID #120 tab 08/15/20 cloNIDine HCL [Catapres*] 0.2 mg PO TID #180 tab 08/15/20 Physician Discharge Instructions: Patient left AMA Diet: Renal Activity: Fall precautions Followup: Radha Seth FNP [Primary Care Provider] - Time spent managing pt's care (in minutes): 35
--- NOTE | 2021-08-01 16:12 | PN ---
Date of Progress Note: 08/01/2021 Subjective: The patient was admitted with acute kidney injury, anasarca on advanced chronic kidney d isease secondary to under diurese. After we started diuresing, the patient off oxygen, on room air, sitting on the chair. Physical Examination: Vital Signs: Blood pressure 166/85, pulse of 72, afebrile. The patient had good urine output of 120 0, negative balance of 360. Chest: Decrease entry on the right side. Heart: S1, S2. Systolic murmur. Abdomen: Soft, nontender. Extremities: +1 edema. Neurologic: Alert, pleasantly confused. No focality. Laboratory Data: WBC 5.3, H and H 10.4/30.3. Sodium 127, potassium 4.2, bicarb 23, BUN 66, creatini ne 4.1, calcium 8.8. BNP 9000. Albumin 3.5. Current Medications: The patient on include; 1.Lasix 40 t.i.d. 2.Eliquis. 3.Tylenol. 4.Metoprolol. 5.Sodium bicarb. Assessment And Plan: 1.Chronic kidney disease stage 3B/4, solitary kidney with acute kidney injury secondary to cardioren al, plateaued, currently normal volume. I am going to continue current dose of Lasix. We will switc h to oral, advise for followup closely with Dr. Camilo in the office in 1 or 2 weeks and we will follow up. 2.Hypertension. We will utilize blood pressure for more diuresis. 3.Right-sided pleural effusion. We will follow up after thoracocentesis. 4.Congestive heart failure with cardiorenal. We will optimize diuresis. 5.Acidosis secondary to renal failure, responds to current bicarb dose. We will follow up. BELA/SALMA Voice ID: [id number] Report ID: [id number]
== END 2021-08-01 11:30 | disposition left against medical advice (07) | DRG 291 ==
LOC: ER 11:06 → ERHOLD 16:47 → 2ND 20:02
PROVIDERS: ADMIT Hospitalist; ATTEND Hospitalist
DX: I13.0 Hypertensive heart and chronic kidney disease with heart failure and stage 1 through stage 4 chronic kidney disease, or unspecified chronic kidney disease (principal); I50.23 Acute on chronic systolic (congestive) heart failure; N17.9 Acute kidney failure, unspecified; Q60.0 Renal agenesis, unilateral; J91.8 Pleural effusion in other conditions classified elsewhere; E87.1 Hypo-osmolality and hyponatremia; N25.81 Secondary hyperparathyroidism of renal origin; N25.89 Other disorders resulting from impaired renal tubular function; N18.32 Chronic kidney disease, stage 3b; Z53.29 Procedure and treatment not carried out because of patient's decision for other reasons; Z20.822 Contact with and (suspected) exposure to COVID-19
CPT/HCPCS: 36415; 71045; 76770; 80048; 80053; 80076; 81001; 82550; 82570; 82947; 83735; 83880; 83930; 83935; 84100; 84132; 84156; 84300; 84484; 85025; 85610; 93005; 93306; 96374; 97116; 97161; 97530; 99285; J1650; J1940; U0003

== ENCOUNTER 2021-09-16 07:02 | Day surgery (SDC) | payer OTHER ==
[2021-09-16 08:09] LABS: MPV 8.4 fL (7.6-11.3)
[2021-09-16 08:13] LABS: Protime INR 1.26
[2021-09-16 08:24] VITALS: BMI 26.3
--- NOTE | 2021-09-16 10:08 | RAD REPORT ---
EXAM DESCRIPTION: RAD - Chest Single View - 09/16/2021 9:50 am CLINICAL HISTORY: Post thoracentesis chest film COMPARISON: Portable 07/31/2021 TECHNIQUE: AP portable chest image was obtained 09/16/2021 9:50 am . FINDINGS: There has been substantial reduction in the right-sided pleural effusion since the compari son study. The post thoracentesis exam shows no identifiable pneumothorax. Cardiomediastinal silhouet te is stable. IMPRESSION: No post thoracentesis pneumothorax seen.
--- NOTE | 2021-09-16 10:17 | RAD REPORT ---
EXAM DESCRIPTION: US - Thoracentesis w/ US Guide - 09/16/2021 9:41 am CLINICAL HISTORY: NRight-sided pleural effusion COMPARISON: Liver Only dated 06/27/2021 TECHNIQUE: Patient presents for ultrasound-guided right-sided thoracentesis due to large pleural eff usion. The procedure, risks and alternatives were discussed with the patient in detail. Both oral and written consent were obtained. A time-out procedure was performed. The patient was off Eliquis for i nadequate number of days. PT/ PTT/ INR studies were within acceptable limits. Patient had no contrain dicated allergy. Preliminary imaging again identified a large right-sided pleural effusion. Posterolateral right lower chest access site was selected. The skin was prepped and draped in the usual sterile fashion. Skin a nd deeper tissues down to the pleural lining anesthetized with 1% lidocaine. Under direct sonographic guidance the thoracentesis catheter was advanced into the pleural space. Proper positioning was conf irmed. Approximately 15 mL of pleural fluid was retained for laboratory studies. Approximately 1.5 liters of pleural fluid was removed. At the end of the procedure the pleural cathet er was removed and a sterile bandage placed at the puncture site. There were no immediate complicatio ns. Patient indicated no distress at the conclusion of the procedure. The patient was transferred to the imaging area for post thoracentesis chest film and then transferred to same-day surgery for postp rocedure monitoring. IMPRESSION: Ultrasound-guided right-sided thoracentesis was performed. Retained fluid was delivered to the laboratory for pending studies. There were no immediate complications. Patient was transferred back to same-day surgery for postproce dure care.
[2021-09-16 12:07] VITALS: BP 167/72; TEMP 97.2; O2SAT 99
--- NOTE | 2021-09-16 12:12 | RAD REPORT ---
EXAM DESCRIPTION: RAD - Chest Single View - 09/16/2021 12:04 pm CLINICAL HISTORY: POST RT LUNG THORACENTESIS COMPARISON: Portable chest same day TECHNIQUE: AP portable chest image was obtained 09/16/2021 12:04 pm . FINDINGS: The 2-3 hour post thoracentesis chest film shows no pneumothorax. Small right pleural effu neda remains. No suspicion for accumulating pleural fluid or blood. IMPRESSION: No pneumothorax on the 2-3 hour post thoracentesis chest film.
[2021-09-16 15:24] LABS: Body Fluid Source PLEURAL; Color of fluid Yellow (COLORLESS)
[2021-09-16 15:25] LABS: Appearance SLT. TURBID (CLEAR); Body Fluid WBC 73 /mm^3
== END 2021-09-16 12:22 | disposition home or self-care (01) ==
LOC: OR 07:02 → RAD 12:22
DX: J90 Pleural effusion, not elsewhere classified (principal)
CPT/HCPCS: 32554; 32555; 36415; 71045; 82945; 84157; 85049; 85610; 85730; 89050